=== PATIENT | female | born 1960 | race Caucasian/White ===

== ENCOUNTER 2024-09-21 12:55 | Inpatient (IN) ==
--- NOTE | 2024-09-21 13:17 | Emergency Department Note ---
ED DC CONDITION Conditon at Discharge Condition at Discharge: Serious Impression & Plan Cerebral venous sinus thrombosis, acute, Lung mass, Double vision, Facial mass ED Provider Note NAME: NIXON CAMPBELL AGE: 63 SEX: F : 1960 ARRIVES VIA: Walk-In INFORMANT: Patient ED PROVIDER(S): Johan Serrano DO CHIEF COMPLAINT: Left eye ptosis and double vision HPI: Patient is a 63-year-old female with a past medical history of breast cancer, GERD who presents to the ER for double vision as well as a ptosis. Symptoms have been present for the past 2 weeks. They have been getting worse over this time but significantly worse over the past 4 days. Denies any headache. When she looks ahead she has no double vision but looking left or right double vision occurs. This has been more present over the past 4 days. If she closes 1 eye she has no issues. No eye pain. No trauma. No chest pain or shortness of breath. No nausea, vomiting or diarrhea. No dysuria, urgency or frequency. No other exacerbating or remitting factors. ADDITIONAL HISTORY OBTAINED: Per HPI Chronic Medical/Social Conditions Affecting Care: Per HPI PAST MEDICAL HISTORY:See Below PAST SURGICAL HISTORY:See Below FAMILY HISTORY:See Below SOCIAL HISTORY:See Below HOME MEDICATIONS:See Below ALLERGIES:See Below VITALS:See Below PHYSICAL EXAMINATION: GENERAL: Sitting up in bed, alert, well appearing, well nourished, no distress, non-toxic EYE EXAM: normal conjunctiva. PERRL and EOM's intact. With the exception of a droopy left upper eyelid. Slight disconjugate gaze and patient peers to be having difficulty looking completely left with the left eye. OROPHARYNX: mucous membranes are moist NECK: supple, no nuchal rigidity, no adenopathy, non-tender LUNGS: Clear to auscultation. Normal chest wall mechanics HEART: no murmurs, S1 normal and S2 normal ABDOMEN: abdomen soft, non-tender, normo-active bowel sounds, no masses, no rebound or guarding. BACK: Back is symmetrical on inspection and there is no deformity, no midline tenderness, no CVA tenderness. SKIN: no rashes and no bruising UPPER EXTREMITIES: upper extremities are grossly normal. LOWER EXTREMITIES: No pitting edema. NEURO EXAM: Normal sensorium, cranial nerves II-XII grossly intact, normal speech, no gross weakness of arms, no gross weakness of legs. MEDICAL DECISION MAKING: Patient is a 63-year-old female who presents to the ER with a past medical history of breast cancer for left eye issue referred in by ophthalmology. IV was established and blood work was obtained. Intraocular pressures were checked and they are 18 bilaterally. CBC along with BMP was unremarkable. LFTs and bilirubin was normal. CTA of the head and neck was obtained and showed likely cancerous mass eroding into the frontal bone sinuses and causing what appears to be a venous sinus thrombosis. I discussed with her she neurology and recommended urgent transfer. I spoke with hospitalist Dr. Rausch in combination with ophthalmology who both felt that the patient did not need to be transferred but they discussed the case with neurosurgery and heme-onc who agreed with them per their report and noted that the patient can follow-up as an outpatient. On last time I contacted [facility] I requested to see what neurosurgery's thoughts were in regards to the venous sinus thrombosis. They noted that we could speak with our neurologist. I requested to speak with their neurologist and they noted that he is no longer on-call. At this time I discussed case with Dr. Nash who recommended admission here and IV heparin without a bolus and close monitoring. I discussed the risk and benefits with this and the patient. They expressed understanding. Discussed with Dr. Flores for further evaluation management and treatment. Again patient denied any previous brain surgeries, coughing up blood, urinating blood, vomiting blood or recent trauma. Consults/Care Managements Discussions: Per [facility] Triage Nursing notes reviewed. Limited review of prior medical records performed Vital Signs: reviewed and remarkable for no significant abnormalities Differential diagnosis: Conjunctivitis, trauma, brain mass, stroke, corneal abrasion, hyphema, glaucoma, iritis, corneal ulcer, dendrite, CRAO, CRVO, vitreous detachment, retinal detachment, as well as other pathologies. ER treatment provided: See below Diagnostics interpreted by me include EKG and cardiac monitoring as listed below: -Cardiac Monitoring: An order was placed for continuous cardiac monitoring. The monitor shows a rate of 70 with sinus rhythm. -ECG: none -Laboratory studies:Interpreted by me as stated above in MDM and shown below. Imaging studies: Xrays: As interpreted by me:none CTs show: CT of the head per my preliminary interpretation showed no obvious large bleed CT of the head and neck as described above in MDM Procedures:none Critical Care: I have personally spent 75 minutes of critical care time in the direct management of this patient. This includes bedside care, interpretation of diagnostic studies, and testing, discussion with consultants, patient, and family members, and other required patient management activities. This 75 minutes is in excess of all separately billable procedures. Past Med/Surg History Problem List (Updated 09/21/24 @ 18:56 by Johan Serrano DO) Facial mass (Acute) Double vision (Acute) Lung mass (Acute) Cerebral venous sinus thrombosis, acute (Acute) Metastatic neoplasm Occlusion of sagittal venous sinus Proptosis Ptosis Nausea & vomiting Abdominal pain Routine health maintenance Osteopenia Acute URI of multiple sites GERD (gastroesophageal reflux disease) mild hiatal hernia Lymphedema Malignant neoplasm of lower-outer quadrant of left breast of female, estrogen receptor negative (Chronic) FNA L axillary lump 06/24/18 Onychomycosis Peripheral neuropathy Foot drop Medical History Status post chemotherapy Shingles BRCA gene mutation negative Central venous catheter in place Bone spur Abnormal mammogram Surgical History Hx of tonsillectomy History of bunionectomy H/O foot surgery Family History Mother No problems noted. Father , 83yo Colorectal cancer Brother No problems noted. Brother No problems noted. Denies family history of Ovarian cancer Prostate cancer Myocardial infarction Breast cancer Social History Smoking Status: Never smoker Tobacco Type: Cigarettes Age Started Using Tobacco: 17; Age Quit Using Tobacco: 27; packs per day: 0.5; Cigarettes Per Day: 1/2 PPD x 10 yrs;; Second Hand Exposure: No; Do You Dip or Chew Tobacco: No; Hx Alcohol Use: Yes Hx Substance Use: No Preferred Language: Dutch Communication Ability: Effective Visual Impairment: Limited Hearing Ability: Normal Software Product Specialist Required: No Beliefs That Will Affect Care: None marital status: Current Living Situation: Spouse current occupational status: retired and disabled 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 [employer] How many Children do You have: 0 Feels Safe at Home: Yes Childhood Exposure to Second-Hand Smoke: Yes Diet: regular caffeine: Yes (2 cups coffee/day) during the past year weight has: remained stable Dental Care, Regularly: Yes Physical Activity Frequency: Daily Physical Activity Frequency Comment: Daily housework and cleaning Seatbelt Use: always Sunscreen Use: Yes Gender Identity: Female Assistive Devices: Contacts and Glasses Allergies Allergies Allergy/AdvReac Type Severity Reaction Status Date / Time Penicillins Allergy Severe Rash Verified 09/12/24 10:40 erythromycin base Allergy Verified 09/12/24 10:40 Home Meds Previous Rx's Medication Instructions Recorded famotidine 20 mg tablet 20 mg PO DAILY #90 tabs 07/20/24 tobramycin 0.3 % eye drops 2 drp ophthalmic (eye) TID #5 mL 08/18/24 ondansetron 4 mg disintegrating 4 mg PO Q4H PRN nausea and 09/12/24 tablet vomiting #60 tabs Results & Data (ED) Vital Signs Vital Signs - 24 hr 09/21/24 12:58 09/21/24 13:11 09/21/24 13:17 Temperature 36.6 C Temperature Source Temporal Artery Scan Pulse Rate 91 H 81 Pulse Rate from SpO2 Sensor Respiratory Rate 18 Respiratory Effort / Characteristics Non-Labored Respiratory Depth Normal Respiratory Pattern Regular Blood Pressure 121/78 124/76 Blood Pressure Mean 92 94 Pulse Oximetry 97 Oxygen Delivery Method Room Air Sepsis Recent Fever Within 48 Hours No Sepsis New/Unexplained Change in Mental Status N/A Sepsis Action Taken by Nursing No Action Required 09/21/24 13:27 09/21/24 13:30 09/21/24 13:30 Temperature Temperature Source Pulse Rate 87 Pulse Rate from SpO2 Sensor 88 Respiratory Rate Respiratory Effort / Characteristics Respiratory Depth Respiratory Pattern Blood Pressure 121/78 121/78 Blood Pressure Mean 99 99 Pulse Oximetry 93 Oxygen Delivery Method Sepsis Recent Fever Within 48 Hours Sepsis New/Unexplained Change in Mental Status Sepsis Action Taken by Nursing 09/21/24 13:36 09/21/24 13:42 09/21/24 13:54 Temperature Temperature Source Pulse Rate 75 70 Pulse Rate from SpO2 Sensor 75 69 Respiratory Rate 22 23 Respiratory Effort / Characteristics Respiratory Depth Respiratory Pattern Blood Pressure Blood Pressure Mean Pulse Oximetry 95 98 96 Oxygen Delivery Method Room Air Sepsis Recent Fever Within 48 Hours Sepsis New/Unexplained Change in Mental Status Sepsis Action Taken by Nursing 09/21/24 14:00 09/21/24 14:12 09/21/24 14:27 Temperature Temperature Source Pulse Rate 70 78 Pulse Rate from SpO2 Sensor 69 77 Respiratory Rate 21 17 Respiratory Effort / Characteristics Respiratory Depth Respiratory Pattern Blood Pressure 119/71 Blood Pressure Mean 96 Pulse Oximetry 97 97 Oxygen Delivery Method Sepsis Recent Fever Within 48 Hours Sepsis New/Unexplained Change in Mental Status Sepsis Action Taken by Nursing 09/21/24 14:30 09/21/24 14:30 09/21/24 14:39 Temperature Temperature Source Pulse Rate 74 Pulse Rate from SpO2 Sensor 73 Respiratory Rate 18 Respiratory Effort / Characteristics Respiratory Depth Respiratory Pattern Blood Pressure 133/86 133/86 Blood Pressure Mean 108 108 Pulse Oximetry 97 Oxygen Delivery Method Sepsis Recent Fever Within 48 Hours Sepsis New/Unexplained Change in Mental Status Sepsis Action Taken by Nursing 09/21/24 14:48 09/21/24 15:03 09/21/24 15:27 Temperature Temperature Source Pulse Rate 83 75 74 Pulse Rate from SpO2 Sensor 85 77 74 Respiratory Rate 23 20 Respiratory Effort / Characteristics Respiratory Depth Respiratory Pattern Blood Pressure 140/86 133/91 Blood Pressure Mean 104 105 Pulse Oximetry 97 96 97 Oxygen Delivery Method Sepsis Recent Fever Within 48 Hours Sepsis New/Unexplained Change in Mental Status Sepsis Action Taken by Nursing 09/21/24 16:09 09/21/24 17:14 Temperature Temperature Source Pulse Rate 66 78 Pulse Rate from SpO2 Sensor 68 Respiratory Rate 15 Respiratory Effort / Characteristics Respiratory Depth Respiratory Pattern Blood Pressure 145/90 H Blood Pressure Mean 108 Pulse Oximetry 97 Oxygen Delivery Method Sepsis Recent Fever Within 48 Hours Sepsis New/Unexplained Change in Mental Status Sepsis Action Taken by Nursing Laboratory Data 09/21/24 Unknown 09/21/24 Unknown Lab Results 09/21/24 09/21/24 Range/Units 13:14 Unknown WBC 7.60 (4.8-10.8) K/ul RBC 4.49 (4.20-5.40) M/uL Hgb 12.9 (12.0-16.0) g/dl POC Hgb 12.9 (12.0-16.0) g/dl Hct 39.0 (37.0-47.0) % POC Hct 38 (37-47) % MCV 86.9 (80.0-100.0) fL MCH 28.7 (25.0-34.0) pg MCHC 33.1 (32.0-36.0) g/dL RDW Std Deviation 45.5 (36.4-46.3) fL RDW Coeff of Melissa 14.3 (11.5-14.5) % Plt Count 281 (130-400) K/uL MPV 10.4 (9.4-12.4) fL Immature Gran % (Auto) 0.4 % Neut % (Auto) 78.0 % Lymph % (Auto) 15.5 % Wheeler % (Auto) 5.3 % Eos % (Auto) 0.3 % Baso % (Auto) 0.5 % Neut # (Auto) 5.93 (1.40-6.50) K/uL Lymph # (Auto) 1.18 L (1.20-3.40) K/uL Wheeler # (Auto) 0.40 (0.11-0.59) K/uL Eos # (Auto) 0.02 (0.00-0.50) K/uL Baso # (Auto) 0.04 (0.00-0.20) K/uL Immature Gran # (Auto) 0.03 (0.01-0.20) K/uL POC Sodium 140 (135-144) mmol/L Sodium 140 (136-145) mmol/L POC Potassium 3.4 (3.3-5.0) mmol/L Potassium 3.5 (3.5-5.1) mmol/L POC Chloride 98 L (101-112) mmol/L Chloride 103 (98-107) mmol/L Carbon Dioxide 32 (21-32) mmol/L POC Total CO2 27 (24-31) mmol/L Anion Gap 5 (3-11) POC Anion Gap 20.0 (16-25) mmol/L POC BUN 9 (7-18) mg/dl BUN 10 (6-23) mg/dl Creatinine 0.87 (0.6-1.2) mg/dl POC Creatinine 1.0 (0.6-1.3) mg/dl Est Cr Clr Drug Dosing 61.2 ml/min eGFR 74.35 BUN/Creatinine Ratio 11.5 (10-20) Glucose 110 H (70-99(Fasting)) mg/dl POC Glucose (other) 111 H (70-99) mg/dl Calcium 9.3 (8.6-10.3) mg/dl POC Ioniz Calcium Juan Antonio 1.22 (1.12-1.32) mmol/l Total Bilirubin 0.5 (0.2-1.0) mg/dl AST 22 (13-39) U/L ALT 13 (7-52) U/L Alkaline Phosphatase 224 H (34-104) U/L Total Protein 6.6 (6.0-8.3) gm/dl Albumin 3.8 (3.4-5.0) gm/dl Globulin 2.8 (2.5-4.0) gm/dl Albumin/Globulin Ratio 1.4 (0.9-2) Administered Medications Heparin Sodium/Dextrose (Heparin 72133 Unit/500 Ml D5w) 25,000 units in 500 mls @ 23 mls/hr IV .[id number] [facility]; Protocol Stop: 10/21/24 17:44 Last Admin: 09/21/24 18:32 Dose: 1,150 units/hr, 23 mls/hr Documented By: MENDEZ Co-signed By: DAVIS Discontinued Medications Dexamethasone Sodium Phosphate (DexamethasonePf 10 Mg/Ml Vial) 10 mg IV NOW ONE Stop: 09/21/24 15:12 Last Admin: 09/21/24 15:59 Dose: 10 mg Documented By: GUY Ioversol (Optiray 320 125ml) 119 ml IV ONCE ONE Stop: 09/21/24 13:24 Last Admin: 09/21/24 13:24 Dose: 119 ml Documented By: ALEAH Imaging Data Radiologist's Impression: Head CTA 09/21/24 13:10 CT angio head wo/w CLINICAL HISTORY: Left eye double vision and ptosis. COMPARISON STUDY: No previous studies for comparison. TECHNIQUE: Unenhanced and arterial phase imaging of the head was performed. Intravenous injection of 119 cc of Optiray 320 IV was uneventful. Sagittal and coronal reformats were viewed as well as maximal intensity projections on an independent 3-D workstation. A dose lowering technique was utilized adhering to the principles of ALARA. FINDINGS: The bilateral M1, M2, A1 and A2 segments are patent. There is no intracranial aneurysm, dissection or stenosis. The posterior circulation is intact. No arterial occlusion is identified. No acute intracranial hemorrhage is present. There is no midline shift. Ventricular system is unremarkable. Basal cisterns are patent. The frontal and ethmoid sinuses are opacified. There is associated bony irregularity with permeative appearance of the left frontal bone and the greater wing of the of the left temporal bone. Associated adjacent dural enhancing soft tissue extends into the left orbital apex. There is abrupt cutoff of the anterior aspect of the superior sagittal sinus which contains hyperdense material. 6 mm partially calcified extra-axial density overlying the left parietal lobe on image 61 of 128 is noted. There is a 4 mm calcific density within the paramedian posterior right frontal lobe on image 75. IMPRESSION: 1. No intracranial arterial occlusion. No intracranial aneurysm or stenosis. 2. Bony irregularity with permeative appearance of the left frontal bone and greater wing of the left sphenoid bone. Associated enhancing dural tissue consistent with tumor which extends into the left orbital apex and overlies the anterior left temporal and frontal lobes. Opacified frontal and sphenoid sinuses which may contain tumor. Occlusion of the anterior superior sagittal sinus. These findings suggest metastatic disease and could be further assessed with MRI of the brain with and without contrast. ACT 112: Negative or not required by law. Electronically signed by: Jason Arboleda M.D. 09/21/2024 1:52 PM Neck CTA 09/21/24 13:10 CT ANGIOGRAPHY OF THE NECK WITH CONTRAST CLINICAL HISTORY: Double vision and ptosis. COMPARISON STUDY: No previous studies for comparison. Technique: CT angiography of the carotid and vertebral arteries was obtained using Optiray and 3D reconstruction on an independent workstation. NASCET criteria was utilized. Automated exposure control was utilized for the study. A dose lowering technique was utilized adhering to the principles of ALARA. Findings: Numerous irregular mass-like lesions within the left upper lobe are partially imaged. Index lesion on image 1 measures at least 5 x 3 cm. There are numerous nodules within visualized portions of the upper lungs. Mediastinal, left hilar and right supraclavicular lymphadenopathy is noted. Index right paratracheal lymph node on image 88 measures 2.3 x 1.1 cm. The bilateral common carotid, cervical internal carotid and vertebral arteries are patent. There is no stenosis, aneurysm or dissection within these vessels. IMPRESSION: 1. No stenosis or dissection within the bilateral common carotid, cervical internal carotid or vertebral arteries. 2. Multiple masses and nodules within the visualized lungs, including a 5 x 3 cm left upper lobe mass. These are consistent with a neoplastic process and worrisome for lung malignancy. A CT of the chest is recommended for further evaluation. 3. Pathologic mediastinal, left hilar and right supraclavicular lymphadenopathy. ACT 112: Negative or not required by law. Electronically signed by: Jason Arboleda M.D. 09/21/2024 1:41 PM Discharge Plan Visit Data Chief Complaint: Referred by Doctor Stated Complaint: REFFERED BY DOCTOR ED Provider: Johan Serrano Discharge Problem: Cerebral venous sinus thrombosis, acute, Lung mass, Double vision, Facial mass Patient Disposition: Admitted As Inpatient Condition: Serious Forms Stand Alone Forms: [facility] Prescriptions Prescriptions: No Action famotidine 20 mg tablet 20 mg PO DAILY Qty: 90 3RF tobramycin 0.3 % drops 2 drp ophthalmic (eye) TID Qty: 5 0RF Rx Instructions: Use until symptoms resolve and then for another 2 days after ondansetron 4 mg tablet,disintegrating 4 mg PO Q4H PRN (Reason: nausea and vomiting) Qty: 60 0RF Rx Instructions: [facility] ER 08/23/24 Referrals Referrals: Ann Mayes MD [Primary Care Provider] -
[2024-09-21] MEDS: OPTIRAY 320 125ml IV ONE (13:24)
[2024-09-21 13:28] LABS: iSTAT Hemoglobin 12.9 g/dl (12.0-16.0); iSTAT Ionized Calcium 1.22 mmol/l (1.12-1.32); iSTAT Potassium 3.4 mmol/L (3.3-5.0)
[2024-09-21 13:29] LABS: Basophils # (auto) 0.04 K/uL (0.00-0.20); Basophils % (auto) 0.5 %; Eosinophils # (auto) 0.02 K/uL (0.00-0.50); Eosinophils % (auto) 0.3 %; Hemoglobin 12.9 g/dl (12.0-16.0); Immature Granulocytes # (auto) 0.03 K/uL (0.01-0.20); Immature Granulocytes % (auto) 0.4 %; Lymphocytes # (auto) 1.18 K/uL (1.20-3.40); Lymphocytes % (auto) 15.5 %; Mean Corpuscular Hemoglobin 28.7 pg (25.0-34.0); Mean Corpuscular Hgb Conc 33.1 g/dL (32.0-36.0); Mean Corpuscular Volume 86.9 fL (80.0-100.0); Mean Platelet Volume 10.4 fL (9.4-12.4); Monocytes % (auto) 5.3 %; Neutrophils # (auto) 5.93 K/uL (1.40-6.50); Platelet Count 281 K/uL (130-400); RDW Coefficient of Variation 14.3 % (11.5-14.5); RDW Standard Deviation 45.5 fL (36.4-46.3); Red Blood Count 4.49 M/uL (4.20-5.40)
--- NOTE | 2024-09-21 13:42 | CT Scan Report ---
CT ANGIOGRAPHY OF THE NECK WITH CONTRAST CLINICAL HISTORY: Double vision and ptosis. COMPARISON STUDY: No previous studies for comparison. Technique: CT angiography of the carotid and vertebral arteries was obtained using Optiray and 3D rec onstruction on an independent workstation. NASCET criteria was utilized. Automated exposure control was utilized for the study. A dose lowering technique was utilized adhering to the principles of ALA RA. Findings: Numerous irregular mass-like lesions within the left upper lobe are partially imaged. Index lesion on image 1 measures at least 5 x 3 cm. There are numerous nodules within visualized portions of the upper lungs. Mediastinal, left hilar and right supraclavicular lymphadenopathy is noted. Index right paratracheal lymph node on image 88 measures 2.3 x 1.1 cm. The bilateral common carotid, cervi shantelle internal carotid and vertebral arteries are patent. There is no stenosis, aneurysm or dissection within these vessels. IMPRESSION: 1. No stenosis or dissection within the bilateral common carotid, cervical internal carotid or verteb ral arteries. 2. Multiple masses and nodules within the visualized lungs, including a 5 x 3 cm left upper lobe mass . These are consistent with a neoplastic process and worrisome for lung malignancy. A CT of the chest is recommended for further evaluation. 3. Pathologic mediastinal, left hilar and right supraclavicular lymphadenopathy. ACT 112: Negative or not required by law. Electronically signed by: Jason Arboleda M.D. 09/21/2024 1:41 PM
[2024-09-21 13:49] LABS: Albumin Globulin Ratio 1.4 (0.9-2); Albumin Level 3.8 gm/dl (3.4-5.0); BUN Creatinine Ratio 11.5 (10-20); Bilirubin,Total 0.5 mg/dl (0.2-1.0); Calcium 9.3 mg/dl (8.6-10.3); Creatinine Clr Calc Pharmacy 61.2 ml/min; Globulin 2.8 gm/dl (2.5-4.0); Potassium 3.5 mmol/L (3.5-5.1); Total Protein 6.6 gm/dl (6.0-8.3)
--- NOTE | 2024-09-21 13:54 | CT Scan Report ---
CT angio head wo/w CLINICAL HISTORY: Left eye double vision and ptosis. COMPARISON STUDY: No previous studies for comparison. TECHNIQUE: Unenhanced and arterial phase imaging of the head was performed. Intravenous injection of 119 cc of Optiray 320 IV was uneventful. Sagittal and coronal reformats were viewed as well as neri l intensity projections on an independent 3-D workstation. A dose lowering technique was utilized adh ering to the principles of ALARA. FINDINGS: The bilateral M1, M2, A1 and A2 segments are patent. There is no intracranial aneurysm, dis section or stenosis. The posterior circulation is intact. No arterial occlusion is identified. No acu te intracranial hemorrhage is present. There is no midline shift. Ventricular system is unremarkable. Basal cisterns are patent. The frontal and ethmoid sinuses are opacified. There is associated bony i rregularity with permeative appearance of the left frontal bone and the greater wing of the of the le ft temporal bone. Associated adjacent dural enhancing soft tissue extends into the left orbital apex. There is abrupt cutoff of the anterior aspect of the superior sagittal sinus which contains hyperden se material. 6 mm partially calcified extra-axial density overlying the left parietal lobe on image 6 1 of 128 is noted. There is a 4 mm calcific density within the paramedian posterior right frontal lob e on image 75. IMPRESSION: 1. No intracranial arterial occlusion. No intracranial aneurysm or stenosis. 2. Bony irregularity with permeative appearance of the left frontal bone and greater wing of the left sphenoid bone. Associated enhancing dural tissue consistent with tumor which extends into the left o rbital apex and overlies the anterior left temporal and frontal lobes. Opacified frontal and sphenoid sinuses which may contain tumor. Occlusion of the anterior superior sagittal sinus. These findings s uggest metastatic disease and could be further assessed with MRI of the brain with and without contra st. ACT 112: Negative or not required by law. Electronically signed by: Jason Arboleda M.D. 09/21/2024 1:52 PM
[2024-09-21] MEDS: dexAMETHasone**PF** 10 MG/ML VIAL IV ONE (15:59)
--- OUTSIDE RECORDS SUMMARY | 2024-09-21 17:14 | External Medical Summary | Summary of Care ---
Author Name Unknown Organization [facility] Address [address] [place] [address] Phone [phone] Care Team Providers Care Economic Consultant Name Role Phone PrasanthroldanLawrence miller Celio DO Primary Care Provi cortney Reason for Visit * Reason Comments Follow Up Encounter Details Date Type Department Care Team (Late st Contact Info) Description 09/20/2024 2:00 PM EDT Office Visit General Surgery Shahnaz Childs [address] [place] [id number] Denver Julian MD [address] [place] [address] Lung nodule, multiple* Allergies Active Allergy Reactions Criticality Noted Date Comments Erythromycin 09/09/2018 Penicillins 12/25/2004 Rash documented as of this encounter (statuses as of 09/20/2024) Medications Doxepin HCl 50 MG Oral Capsule Take 50 mg by mouth at bedtime. Active celecoxib (CELEBREX) 200 MG Capsule Take 200 mg by mouth 2 times a day. Active Famotidine 20 MG Oral Tablet (Pepcid) Take 1 Tablet by mouth in the morning. 2 Active Ondansetron 4 MG Oral Tablet Disintegrating (Zofran) Place 1 Tablet on tongue every 8 hours as needed for Nausea or Vomiting. dissolve on tongue. 12 Tablet 5 Active documented as of this encounter (statuses as of 09/20/2024) Active Problems Problem Noted Date Diagnosed Date History of breast cancer 03/24/2019 Malignant neoplasm of upper- outer quadrant of left breast in female, estrogen receptor negative 07/19/2018 Metastatic cancer to axillary lymph nodes 2018 documented as of this encounter (statuses as of 09/20/2024) Resolved Problems Problem Noted Date Diagnosed Date Resolved Date ADVANCE DIRECTIVE INFORMATION 02/19/2005 03/27/2024 Overview (02/19/2005): No, Advance Directive brochure offered , patient declined. documented as of this encounter (statuses as of 09/20/2024) Social History Tobacco Use Types Packs/Day Years Used Date Smoking Tobacco: Former Smokeless Tobacco: Never Comments:Smoked for 10 years Alcohol Use Standard Drinks/Week Comments Yes 0 (1 standard drink = 0.6 oz pur e alcohol) Rarely Comments No Sex and Gender Information Value Date Recorded Sex Assigned at Not on file Legal Sex Female 5:42 AM EST Gender Identity Not on file Sexual Orientation Not on file documented as of this encounter Progress Notes * Denver Julian MD - 09/20/2024 2:23 PM EDT SUBJECTIVE: Ann Zhang is a 63 year old female. Chief Complaint Patient presents with Follow Up HPI: Ann Zhang is being seen for discussion of the results of her CAT scan and HIDA scan. I 1st saw her on 08/29/24 and the HPI from that visit stated th e following: "HPI: Ann is referred by Lawrence Winchester DO and Makayla Shi PA-C for evaluation of upper abdominal pain. The patient states her 1st episode was 5 weeks ago. She describes discomfort that is crampy with some sharp component that usually begins just to the right of midline in the subcostal area and then will spread towards the right and then towards the left side. It will last for varying amounts of time. She states that it has been occurring 1 day per week since it 1st occurred 5 weeks ago. She has not been able to clearly identify an etiology. She states that occasionally when she would eat more fatty foods the next day she might have symptoms but that was not consistent. She said that on the day that she 1st had the symptoms she was lifting a box above her head andevelop some discomfort but there is no other trauma that she described. She had some nausea with the pain but no vomiting. The pain did not radiate to her back. She had no fever. She presently reports being constipated but she thinks this may be due to the fact that her oral intake has decreased in it she has fear of eating in hoping that the pain will not return. She was seen in the Emergency Room for the most recent episode of pain which was 5 days ago. She underwent an ultrasound of the right upper quadrant. The gallbladder showed no gallstones. There was no gallbladder wall thickening. The common bile duct measured 5 mm. There was no choledocholithiasis. In the liver there was a 1.6 cmsimple cyst in the right lobe and a 6 mm cyst in the left lobe but no solid mass or fatty infiltration was seen. Her AST and ALT were mildly elevated at 55 and 65 respectively. Her alkaline phosphatase was mildly elevated at 215. Her total bilirubin was 0.5." Since that time the pain has seemed to resolve. She was placed on Zofran on regular basis and that has helped her nausea as well. She has been able to eat. She has developed an issue with ptosis of her left eye which is being investigated. The CT scan showed new sclerotic lesions in the L3 and L4 ve rtebral bodies. There were also multiple nodules in the middle lobe and bilateral lower lobes of the lung with the largest in the subpleural right lower lobe area measuring 9 mm. The liver had stablesimple cysts and additional subcentimeter hypodensities which were too small to accurately characterize. The gallbladder ejection fraction was 28%. She developed no symptoms after administration of the cholecystokinin analog. 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 Past Surgical History: Procedure Laterality Date BX LYMPH NODE DEEP AXIL Left 01/25/2019 BIOPSY LYMPH NODE DEEP AXILLARY OPEN performed by Luly Fowler MD at [facility] CHEMOTHERAPY T2N1 with neoadjuvant chemotherapy IDENTIFY SENTINEL NODE, RADIOACTIVE TRACER Left 01/25/2019 INJECTION PROCEDURE FOR IDENTIFICATION SENTINEL NODE performed by Luly Fowler MD at OR [facility] INSER TUNN ACC DEV;5 YRS/OLDER N/A 08/03/2018 INSERT TUNNELED CENTRAL VENOUS ACCESS WITH SUBQ PORT performed by Luly Fowler MD at [facility] MASTECTOMY, PARTIAL Left 01/25/2019 MASTECTOMY PARTIAL performed by Luly oFwler MD at [facility] MRI GUIDED BREAST BX LEFT Left 07/20/2018 fibrocystic change & intraductal hyperplasia OTHER 1994 Right foot; bone spur/bunion RADIATION THERAPY Left 2019 US GUIDED BREAST BIOPSY LEFT Left 06/24/2018 high grade invasive apocrine type Pathologic Stage 2 Carcinoma US GUIDED BREAST BIOPSY RIGHT Right 07/20/2018 change consistent with ruptured duct & adjacent fat necrosis Current Outpatient Medications Medication Sig Dispense Refill Doxepin HCl 50 MG Oral Capsule Take 50 mg by mouth at bedtime. celecoxib (CELEBREX) 200 MG Capsule Take 200 mg by mouth 2 times a day. Famotidine 20 MG Oral Tablet (Pepcid) Take 1 Tablet by mouth in the morning. Ondansetron 4 MG Oral Tablet Disintegrating (Zofran) Place 1 Tablet on tongue every 8 hours as needed for Nausea or Vomiting. dissolve on tongue. 12 Tablet 0 No current facility-administered medications for this visit. Review of patient's allergies indicates: Allergen Reactions Erythromycin Penicillin [Penicillins] Rash Social History: Social History Tobacco Use Smoking status: Former Smokeless tobacco: Never Tobacco comments: Smoked for 10 years Substance Use Topics Alcohol use: Yes Comment: Rarely Vaping/E-Cigarette Use Vaping/E-Cigarette Substances Vaping/E-Cigarette Devices OBJECTIVE: PHYSICAL EXAM: [facility] 02/11/2005 General: alert and no distress Abdomen: abdomen soft, non-tender, normal bowel sounds, and no masses or organomegaly ASSESSMENT: (R91.8) Lung nodule, multiple (primary encounter diagnosis) PLAN: This patient had abdominal pain which is now resolved. There are lung lesions and possibly liver lesions but also lytic lesions in her spine that are consistent and suspicious for metastatic disease.I had previously contacted Dr. Monzon who ordered a PET scan. That is scheduled for later in September. She then has an appointment scheduled with Dr. Monzon. I do not feel that cholecystectomy is indicated at this time. If her symptoms return then we can re-evaluate. She is also being evaluated with an MRI for her eye. Await those results. She can follow up with me as needed. Denver Julian MD 09/20/2024 documented in this encounter Nursing Notes * Thelma Hess LPN - 09/20/2024 1:46 PM EDT Pt presents in office for 1 week follow up of upper abdominal pain Ct completed on 09/05 No concerns documented in this encounter Plan of Treatment Upcoming Encounters Date Type Department Care Team (Late st Contact Info) Description 10/09/2024 10:45 AM EDT Imaging Radiology [address] [place] [phone] 10/17/2024 2:30 PM EDT Office Visit Hematology/Oncology [facility] [address] [facility] [place] [id number] Bridger Monzon MD [address] [facility] [place] [address] Health Maintenance Due Date Last Done Comments COVID-19 Vaccine (#1) 12/06/1964 Depression Screening 1971 HIV Screening 12/06/1974 Pneumococcal Vaccine: 50+ Years (1 of 2 - PCV) 12/06/1978 Zoster Vaccines (1 of 2) 12/06/1978 Pap Smear 12/06/1980 Cervical Cancer Screening 12/06/1989 HPV/Co-Test 12/06/1989 Cologuard 12/06/2004 Colonoscopy 12/06/2004 Colorectal Cancer Screening 12/06/2004 Fecal Occult Blood Test 12/06/2004 Sigmoidoscopy 12/06/2004 Mammogram 06/26/2023 06/26/2022, 05/2021, 06/20/2020, Additional history exists Influenza Vaccine (FLU shot) (Season Ended) 2025 Lipid Panel 07/19/2025 07/19/2020, 08/0 05/2007, 12/23/2007 Diabetes Screening 08/24/2027 08/23/2024, 0 07/19/2020, 12/30/2018, Additional history exists DTap/Tdap Vaccines (2 - Td or Tdap) 06/21/2028 06/21/2018 Hepatitis C Screening Completed 08/23/2024 HPV (Gardasil) Vaccine Aged Out No lo nger eligible based on patient's age to complete this topic Hepatitis B Vaccine Aged Out No longe r eligible based on patient's age to complete this topic MENINGOCOCCAL (MENACTRA/MENVEO) Aged Out No longer eligible based on patient's age to complete this topic Meningitis B Vaccine (Bexsero/Trumemba) Aged Out No longer eligible based on patient's age to complete this topic documented as of this encounter Medical Devices Implanted Type Area Billet Checker Device Identifier Shelf Expiration Date Model / Serial / Lot Port Power Mri W/8fr Cath - [id number] Implanted:Qty: 1 on 08/03/2018 by Luly Fowler MD at OR [facility] Right: Chest CR BARD : PERIPHERAL VASCULAR 06/23/2019 [id number] / / [id number] documented as of this encounter Visit Diagnoses Diagnosis Lung nodule, multiple- Primary Other nonspecific abnormal finding of lung field documented in this encounter Care Teams Economic Consultant Relationship Specialty Start Date End Date Lawrence Winchester DO [address] [place], [place] [address] [id number] PCP - General Family Medicine 07/17/20 documented as of this encounter
[2024-09-21] MEDS: HEPARIN 25000 UNIT/500 ML D5W 25,000 UNITS/500 ML BAG IV SCH (18:32)
--- NOTE | 2024-09-21 18:43 | History & Physical Report ---
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 presents with worrisome changes of a widely metastatic neoplasm eroding into her left frontal bone from the retro- orbital space. Accompanying symptoms are diplopia nausea and vomiting. He also feels some gait instability. #Possible sagittal sinus occlusion/thrombosis patient was cautiously started on heparin therapy with concern for bleeding. Patient has been many clinical symptoms of a sinus thrombosis and thus concerned this could be occluded with tumor #Metastatic neoplasm. This is on the left side where her breast cancer was diagnosed and treated. Will perform an MRI of her brain to determine the extent of invasion into her brain. Will have CT scan of her chest to determine the extent of disease burden in her chest. May consider intra ventral radiology consultation to determine if tissue can be obtained easily in this case. Heparin is chosen to be continued at this time but will be stopped if biopsy would be needed. Once diagnostic testing is performed the hospital patient will need to be connected to outpatient oncological services. History of Present Illness Primary Care Provider: Ann Mayes MD 63-year-old female with a history of breast cancer diagnosed in 2019 who has a 5-week history of intermittent vomiting and some progressive left facial discomfort. This is evolved until some diplopia and some mild proptosis and facial swelling. The patient recently has had seen general surgery for her nausea and vomiting with a CT scan done at the [facility] through Dr. Julian. Reportedly on that CT scan she was told she may have metastatic disease in her lumbar spine and also noticing disease in her lungs. Attempts to coordinate outpatient care was made with the possibility of outpatient PET scan being scheduled. However the patient presented with progressive diplopia and facial changes and is found on imaging to have worrisome changes with a retro- orbital mass extending into her frontal lobe opacification of the frontal and sphenoid sinuses and also concerns for occlusion of the anterior superior sagittal sinus which we cannot tell if it is tumor or clot. The patient has chronic daily headaches but they have not worsened. Allergies Allergy/AdvReac Type Severity Reaction Status Date / Time Penicillins Allergy Severe Rash Verified 09/12/24 10:40 erythromycin base Allergy Verified 09/12/24 10:40 Home Medications Medication Instructions Recorded Confirmed Type famotidine 20 mg tablet 20 mg PO DAILY #90 tabs 07/20/24 09/12/24 Rx tobramycin 0.3 % eye drops 2 drp ophthalmic (eye) TID #5 mL 08/18/24 09/12/24 Rx ondansetron 4 mg disintegrating 4 mg PO Q4H PRN nausea and 09/12/24 09/12/24 Rx tablet vomiting #60 tabs Past Med/Surg History Problem List (Updated 09/21/24 @ 18:36 by Teddy Flores MD) Metastatic neoplasm Occlusion of sagittal venous sinus Proptosis Ptosis Nausea & vomiting Abdominal pain Routine health maintenance Osteopenia Acute URI of multiple sites GERD (gastroesophageal reflux disease) mild hiatal hernia Lymphedema Malignant neoplasm of lower-outer quadrant of left breast of female, estrogen receptor negative (Chronic) FNA L axillary lump 06/24/18 Onychomycosis Peripheral neuropathy Foot drop Medical History Status post chemotherapy Shingles BRCA gene mutation negative Central venous catheter in place Bone spur Abnormal mammogram Surgical History Hx of tonsillectomy History of bunionectomy H/O foot surgery Family History Mother No problems noted. Father , 83yo Colorectal cancer Brother No problems noted. Brother No problems noted. Denies family history of Ovarian cancer Prostate cancer Myocardial infarction Breast cancer Social History Smoking Status: Never smoker Tobacco Type: Cigarettes Age Started Using Tobacco: 17; Age Quit Using Tobacco: 27; packs per day: 0.5; Cigarettes Per Day: 1/2 PPD x 10 yrs;; Second Hand Exposure: No; Do You Dip or Chew Tobacco: No; Hx Alcohol Use: Yes Hx Substance Use: No Preferred Language: [place] Communication Ability: Effective Visual Impairment: Limited Hearing Ability: Normal Flight Director Required: No Beliefs That Will Affect Care: None marital status: Current Living Situation: Spouse current occupational status: retired and disabled 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 [employer] How many Children do You have: 0 Feels Safe at Home: Yes Childhood Exposure to Second-Hand Smoke: Yes Diet: regular caffeine: Yes (2 cups coffee/day) during the past year weight has: remained stable Dental Care, Regularly: Yes Physical Activity Frequency: Daily Physical Activity Frequency Comment: Daily housework and cleaning Seatbelt Use: always Sunscreen Use: Yes Gender Identity: Female Assistive Devices: Contacts and Glasses Review of Systems Review of Systems: Mild distress and fatigue Chronic daily headache preceded her most recent symptom complex, double vision with resolved with closure of 1 eye no speech or swallowing issues no chest pain, pressure or palpitations no shortness of breath, cough or wheezes no abdominal pain, has had persistent intermittent nausea & vomiting, most recently has significant constipation no dysuria, hematuria or frequency no focal joint pain or swelling no back pain, CVA tenderness or radicular pain no bruising, bleeding or rashes no focal signs of weakness or numbness or altered sensation no complaints of anxiety or depression.. Physical Exam Physical Exam: The patient appeared well nourished and normally developed. Vital signs as documented. Head exam is puffiness to her left face with a tendency to close her left eye no bony fluctuance or tenderness Neck is without JVD, thyromegaly, or carotid bruits. No significant chest wall masses Lungs apical rales are heard mostly on the right side Cardiac exam, Rhythm is regular.. No murmurs, rubs or gallops. Abdominal exam reveals normal bowel sounds, soft non tender, no masses Extremities are nonedematous and both pedal pulses are present Neurologic exam is alert and oriented, no focal loss of strength or sensation Skin is without bruises or rashes Psychologically is without concerns for anxiety or depression.. Results & Data Results & Data Vital Signs (Past 12 Hours) Vital Signs Temp Pulse Resp BP Pulse Ox O2 Del Method 09/21/24 17:14 78 09/21/24 16:09 66 15 145/90 H 97 09/21/24 15:27 74 20 133/91 97 09/21/24 15:03 75 23 140/86 96 09/21/24 14:48 83 97 09/21/24 14:39 74 18 97 09/21/24 14:30 133/86 09/21/24 14:30 133/86 09/21/24 14:27 78 17 97 09/21/24 14:12 70 21 97 09/21/24 14:00 119/71 09/21/24 13:54 70 23 96 09/21/24 13:42 75 22 98 09/21/24 13:36 95 Room Air 09/21/24 13:30 121/78 09/21/24 13:30 121/78 09/21/24 13:27 87 93 09/21/24 13:17 81 09/21/24 13:11 124/76 09/21/24 12:58 97.9 F 91 H 18 121/78 97 Room Air Laboratory Results Reviewed CBC reviewed chemistry Code Status & VTE Plan VTE Prophylaxis Plan VTE Prophylaxis will be ordered: Yes PG Care Time/CCT Total # of Minutes Spent Total Time Spent with Patient: Total time spent is greater than 50% in coordination of care (as documented) at patient's floor/unit and/or counseling patient: Coding Level of Care Code 46710 INT INP/OBS CARE 2/55MIN Diagnoses Occlusion of sagittal venous sinus G08 Metastatic neoplasm C79.9
[2024-09-21 19:16] LABS: Partial Thromboplastin Ratio 0.9; Partial Thromboplastin Time 24 Seconds (21-31); Prothrombin Time 10.9 Seconds (9.0-12.0)
[2024-09-21] MEDS ORDERED: ACETAMINOPHEN 325 MG TAB PO PRN (20:34)
[2024-09-21] MEDS ORDERED: LORazepam 0.5 MG TAB PO PRN (20:34)
[2024-09-21] MEDS ORDERED: POLYETHYLENE (MIRALAX) 17 GM PACK PO PRN (20:34)
[2024-09-21] MEDS: ONDANSETRON INJ 2 MG/ML 2 ML VIAL IV PRN (21:01)
[2024-09-21] MEDS: OPTIRAY 320 100ml IV ONE (21:34)
[2024-09-21] MEDS: GADOBUTROL 65ML VIAL IV ONE (22:14)
[2024-09-22] MEDS: Heparin IV Adult Wt-Based Standard *NO* INITIAL Bolus Protocol IV STA (01:08)
[2024-09-22 01:29] LABS: ANTI-Xa, UFH(UnfractionatedHep 0.63 IU/ml (0.3-0.7)
--- NOTE | 2024-09-22 02:19 | CT Scan Report ---
Exam(s): CT CHEST With Contrast IV Amt: 93 cc opti 320 EXAM: CT Chest With Intravenous Contrast CLINICAL HISTORY: tumors noted on cta neck. TECHNIQUE: Axial computed tomography images of the chest with intravenous contrast. CTDI is 14.32 mGy and DLP is 498.12 mGy-cm. Automated exposure control was utilized for the study. A dose lowering technique was utilized adhering to the principles of ALARA. CONTRAST: Patient received 93 cc opti 320 of IV contrast COMPARISON: CTA Neck 09/21/2024, chest x-ray 10/11/2018. FINDINGS: Lungs: Multifocal noncalcified lung masses, most confluent in the left upper lobe measuring 3.5 x 2.3 cm. Additional prominent right upper lobe 3.2 x 3.2 cm masses. Multiple scattered subcentimeter masses throughout the lung cruz. Pleural space: No pneumothorax. No pleural effusion. Heart: Unremarkable. No cardiomegaly. Trace pericardial fluid versus thickening. No significant coronary artery calcifications. Bones/joints: Degenerative changes of the spine. No acute fracture. Incompletely healed fracture in the posterior lateral left seventh rib with periosteal reaction. Soft tissues: Unremarkable. Vasculature: Unremarkable. No thoracic aortic aneurysm. Lymph nodes: Diffuse mediastinal and bilateral hilar lymphadenopathy, largest lymph node is an enhancing 2.3 x 1.4 cm subcarinal lymph node. Enhancing 10 x 9 mm and 12.4 x 9.3 mm left axillary lymph nodes. Abdomen: 6 mm hypodense lesion right lobe of liver too small to characterize. Probable 10 mm cyst in the right lobe of liver. Additional 1-2 mm hypodense lesion in the left lobe of liver too small to characterize. IMPRESSION: Extensive bilateral noncalcified lung masses with associated mediastinal and hilar lymphadenopathy and left axillary lymphadenopathy. Appearance is most consistent with neoplasm/metastatic disease. Subacute or old or incompletely healed left posterior lateral seventh rib fracture. Electronically signed by: Celio Braun M.D. 09/22/24 02:18 AM
--- NOTE | 2024-09-22 02:54 | Magnetic Resonance Report ---
Exam(s): MRI HEAD W/WO Contrast IV Amt: 7cc gadavist administered EXAM: MR Head Without and With Intravenous Contrast CLINICAL HISTORY: Reason for exam: eval left retroorbital mass with ext to brain. TECHNIQUE: Magnetic resonance images of the head/brain without and with intravenous contrast in multiple planes. CONTRAST: Patient received 7cc gadavist administered of IV contrast COMPARISON: No relevant prior studies available. FINDINGS: Brain: Brightly enhancing tumor in the epidural space overlying the frontal lobes, left greater than right with thickening and increased enhancement of the leptomeninges over the left hemisphere. There are tiny ring-enhancing lesions in the left frontal lobe, bilateral occipital lobes bilateral cerebellar lobes and left temporal lobe without significant vasogenic edema . The flow voids at the base the brain are intact. The dural venous sinuses are patent. Ventricles: Unremarkable. No ventriculomegaly. Bones/joints: Intraosseous tumor in the frontal lobes.. No acute fracture. Sinuses: Enhancing soft tissue mass in the ethmoid and frontal sinuses. Mastoid air cells: Unremarkable as visualized. No mastoid effusion. Orbits: There is enhancing tumor in the posterior left orbit. 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 There is enhancing tumor in the posterior left orbit. Recommend MRI of the orbits with and without contrast for further evaluation. Communications: Verify Receipt Electronically signed by: Ching Montero MD 09/22/24 02:53 AM
--- NOTE | 2024-09-22 07:52 | Hospitalist Progress Note ---
Date of Service September 22, 2024 Assessment & Plan (1) Metastasis to brain: (2) Metastatic neoplasm: (3) Cerebral venous sinus thrombosis, acute: Plan Miss Levy is 63-year-old female h/o breast cancer in 2019, underwent chemotherapy plus radiation to the left breast and supraclavicular area of the axilla, was on complete remission until a month ago when she started developing new sx. Worsening of Eye symptoms for 1 weeks now, she also endorses loss of balance. Not sure about primary lesion. Metastatic work up revealed mets on BL lungs, supraclavicular LNs, liver, orbit, sinuses. #Metastatic neoplasm: *Unknown primary. - Metastatic work up CT of the abdomen and pelvis suggests pulmonary, hepatic, and osseous metastatic disease. MRI Brain and Orbit: metastatic disease in the left temporal bone and left frontal bone, with extension into the left orbital apex. CT of the chest demonstrates metastatic disease/lymphadenopathy. - CBC, CMP: Unremarkable. - CEA: 6.8, ALP: 244. - Radiation Onc on board: appreciate recs. Will start radiation from next week. Dexamethasone 4 mg PO BID. - Pulm/ IR consulted: Team discussion and image review; looks like she has a supraclavicular LN as peripheral lesion. Trial of biopsy on Wednesday. #Possible sagittal sinus occlusion/thrombosis *2/2 to tumor burden. - Heparin drip ongoing. Continue. - Recheck Xa Q 24 hours. - DC 4 hours before procedure on Wednesday. Dispo: Home once work up complete. DVT prophy: Heparin Admission and Anticipated Discharge Date Admission Date: September 21, 2024 Supervising Physician Co-Signing Physician Notes ATTESTATION I also saw the patient and confirmed mobley portions of the history and exam. I also personally discussed the case with the consulting paediatric surgeon and the outpatient medical oncologist, via phone calls, totaling an additional 15 minutes. I agree with the impression and plan in the resident documentation, and as summarized below. She surprisingly feels generally well except for the swelling around the left eye. She is an excellent historian and is able to fill in several of the missing pieces of information. EXAM VS as noted She is alert and oriented. NAD. CV RRR Lungs CTA with non labored respirations. ABD is soft, non tender. DATA Labs CBC and BMP unremarkable CEA 6.8 AST 22, ALT 13 Alk Phos [address] of the abdomen and pelvis suggests pulmonary, hepatic, and osseous metastatic disease. MRI Bran and Orbit demonstrate metastatic disease in the left temporal bone and left frontal bone, with extension into the left orbital apex. CT of the chest demonstrates metastatic disease/lymphadenopathy. IMPRESSION & PLAN History of Breast CA, triple negative, now with metastatic findings of brain, bone, and lung; suspect breast but cannot exclude second primary Cerebral venous thrombosis, acute Appreciate input from consultants Continue heparin gtt; will hold prior to biopsy Radiation oncology simulation today; Namenda with start of RT Palliative consultation for anticipation of side effect management and goals of care Additional per resident documentation Subjective Miss Levy is 63-year-old female h/o breast cancer in 2019, underwent chemotherapy plus radiation to the left breast and supraclavicular area of the axilla, was on complete remission until a month ago when she started developing new sx.Worsening of Eye symptoms for 1 weeks now, she also endorses loss of balance. Review of Systems Review of Systems: As per HPI Physical Exam Physical Exam: Constitutional: Well appearing, No acute distress. HEENT: Proptosis of left eye, Ptosis noted, Normocephalic, No conjunctival injection CVS: S1 S2 no murmur, Regular Rhythm, no LE edema Respiratory: BL decreased air entry.No increased work of breathing GI: Soft, Nondistended, Nontender, Normal Bowel sounds + MSK: No gross deformities noted Skin: Warm, Dry, No rashes Neuro: Alert, Oriented to TPP, No Focal deficit Psych: Mood and Affect congruent, Cooperative on exam Results & Data Results & Data Vital Signs (Past 12 Hours) Vital Signs Temp Pulse Pulse Resp BP BP Pulse Ox 09/21/24 23:33 36.7 C 84 16 157/89 H 95 09/21/24 20:16 09/21/24 20:09 75 21 132/85 94 O2 Del Method 09/21/24 23:33 Room Air 09/21/24 20:16 Room Air 09/21/24 20:09
[2024-09-22 08:01] LABS: Hematocrit (blood only) 36.3 % (37.0-47.0); Hemoglobin 12.1 g/dl (12.0-16.0); Mean Corpuscular Hemoglobin 28.3 pg (25.0-34.0); Mean Corpuscular Hgb Conc 33.3 g/dL (32.0-36.0); Mean Platelet Volume 10.6 fL (9.4-12.4); Platelet Count 280 K/uL (130-400); RDW Coefficient of Variation 14.2 % (11.5-14.5); RDW Standard Deviation 43.9 fL (36.4-46.3); Red Blood Count 4.27 M/uL (4.20-5.40); White Blood Count 8.26 K/ul (4.8-10.8)
[2024-09-22 08:25] LABS: BUN Creatinine Ratio 14.9 (10-20); Calcium 9.2 mg/dl (8.6-10.3); Creatinine Clr Calc Pharmacy 71.9 ml/min; Potassium 3.6 mmol/L (3.5-5.1)
[2024-09-22 08:35] LABS: ANTI-Xa, UFH(UnfractionatedHep 0.77 IU/ml (0.3-0.7)
--- NOTE | 2024-09-22 10:13 | Pulmonary Consultation ---
Date of Consultation September 22, 2024 Assessment & Plan (1) Metastasis to brain: (2) Lung mass: (3) Ptosis: (4) LAD (lymphadenopathy), mediastinal: (5) Malignant neoplasm of lower-outer quadrant of left breast of female, estrogen receptor negative: (6) Cerebral venous sinus thrombosis, acute: Plan 63-year-old female admitted to the hospital for pulmonary mass with mediastinal lymphadenopathy Past medical history: Left-sided breast cancer 2018 s/p lumpectomy, chemo and radiation CT chest 09/21/2024 personally reviewed: Multiple pulmonary masses appreciated bilaterally especially in the left upper and the right middle lobe Significant mediastinal and hilar lymphadenopathy with calcification -- Pulmonary masses with pulmonary nodules bilaterally Significant mediastinal and hilar lymphadenopathy Seems to have metastasis to the brain as well. The possibility of patient having malignancy is high Given the history of breast cancer, relapse of the breast cancer higher probability The patient does have approximately 3-71-hcnf-year smoking history quit a long time ago. Does have secondhand smoke exposure as well as history of pulmonary mass in father. Probability of lung cancer is there. --Ex-smoker Approximately 54-[id number] smoking history, quit around the age of 29 --History of lung mass and father was a smoker Plan: By the time I was consulted unfortunately it was already 1030 and she was still on heparin drip and I saw the patient. She also had her breakfast I discussed the case with the OR as well as RT. The latest that I could do the procedure would be 2:30 PM which would be 4 hours since holding the heparin drip. Unfortunately we do not have RT availability during that time and I will not be able to do EBUS today I discussed the case with interventional radiology as well. There is 1 right supraclavicular lymph node right behind the IJ as well as left axillary lymph node which can be biopsied unfortunately they cannot do it today. I discussed the case with patient and primary team. Option for the patient would be discharged home on anticoagulation and schedule the procedure as an outpatient. It would be complicated because prior to biopsy anticoagulation needs to be stopped for at least 2-3 days. If the patient plans to stay here in the hospital then IR guided biopsy on Wednesday and if we are not able to get the tissue with the EBUS could be thought of. Do recommend CT of the abdomen and pelvis to see if there is any other easily accessible metastasis. I discussed the case with primary team, radiation oncology, IR. All questions and queries of the patient were answered in depth Please note the above document was generated using voice recognition software. It may contain grammatical, syntax or spelling errors.Any formal questions or concerns about the content, text or information contained within the body of this dictation should be directly addressed to the provider for clarification. History of Present Illness Attending Physician: Ahsan Owens DO History of Present Illness 63-year-old female admitted to the hospital for pulmonary mass with mediastinal lymphadenopathy Past medical history: Left-sided breast cancer 2018 s/p lumpectomy, chemo and radiation Pulmonary consulted for the same At the time of examination patient was not in any respiratory distress She was saturating well on room air. She was complaining of blurry vision in the left eye for which she followed up with ophthalmology as an outpatient. They recommended to go to the ER to have an MRI of the brain done. MRI of the brain showed metastatic lesions. This was followed up with CAT scan of the chest and pulmonary were consulted for the same She denies any issues when it comes to her breathing. She has lost approximately 14 pounds in the last couple of months. Denies any difficulty swallowing Social history: Approximately 71-silf-rovh smoking history, with long time ago, did have exposure to secondhand smoke. Usually used to have discharge Has dogs at home. No birds or poultry nearby History of lung mass in father who was a smoker Allergies Allergy/AdvReac Type Severity Reaction Status Date / Time Penicillins Allergy Severe Rash Verified 09/21/24 18:53 erythromycin base Allergy Verified 09/21/24 18:53 Home Medications Medication Instructions Recorded Confirmed Type famotidine 20 mg tablet 20 mg PO DAILY #90 tabs 07/20/24 09/21/24 Rx ondansetron 4 mg disintegrating 4 mg PO Q4H PRN nausea and 09/12/24 09/21/24 Rx tablet vomiting #60 tabs Patient History Medical History Status post chemotherapy Neoadjuvant chemo 08/12/18 thru 12/30/18 Shingles BRCA gene mutation negative Central venous catheter in place 08/03/18 Bone spur right foot. removed Abnormal mammogram Surgical History Hx of tonsillectomy History of bunionectomy H/O foot surgery right foot Family History Mother No problems noted. Father , 83yo Colorectal cancer Brother No problems noted. Brother No problems noted. Denies family history of Ovarian cancer Prostate cancer Myocardial infarction Breast cancer Social History Smoking Status: Former smoker Tobacco Type: Cigarettes Age Started Using Tobacco: 17; Age Quit Using Tobacco: 27; packs per day: 0.5; Cigarettes Per Day: 1/2 PPD x 10 yrs;; Second Hand Exposure: No; Do You Dip or Chew Tobacco: No; Hx Alcohol Use: Yes Hx Substance Use: No Preferred Language: Yakut Communication Ability: Effective Visual Impairment: Limited Hearing Ability: Normal Telecommunications Facility Examiner Required: No Beliefs That Will Affect Care: None marital status: Current Living Situation: Spouse current occupational status: retired and disabled 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 [employer] How many Children do You have: 0 Feels Safe at Home: Yes Childhood Exposure to Second-Hand Smoke: Yes Diet: regular caffeine: Yes (2 cups coffee/day) during the past year weight has: remained stable Dental Care, Regularly: Yes Physical Activity Frequency: Daily Physical Activity Frequency Comment: Daily housework and cleaning Seatbelt Use: always Sunscreen Use: Yes Gender Identity: Female Assistive Devices: Cane and Walker Review of Systems 2 Review of Systems: All systems reviewed & are unremarkable except as noted in HPI & below Physical Exam 2 Physical Exam: Constitutional: No acute distress HEENT: EOMI, PERRLA, ptosis of the left eye, does complain of blurry vision on the left eye Respiratory system: Good air entry bilaterally, no wheeze, no rhonchi, no crackles CVS: S1-S2 positive, no murmurs or gallops Abdomen: Soft, nontender, nondistended, positive bowel sounds x4 Extremities: +2 pulses bilaterally radialis/ dorsalis pedis, no cyanosis, minimal pitting edema bilateral lower extremity Neuro: Awake alert oriented x3, cranial nerves II to XII grossly intact, muscular strength 5/5 bilateral upper and lower extremity Psych: Normal mood and affect G/U: No Sood Skin: no rashes, warm and dry Lymphatic: no cervical or axillary lymphadenopathy Results & Data Results & Data Vital Signs (Past 12 Hours) Vital Signs Temp Pulse Resp BP Pulse Ox O2 Del Method 09/22/24 08:00 36.7 C 72 16 120/81 96 Room Air 09/21/24 23:33 36.7 C 84 16 157/89 H 95 Room Air Laboratory Results 09/22/24 07:22 09/22/24 07:22 PG Care Time/CCT Total # of Minutes Spent Total Time Spent with Patient: Total time spent is greater than 50% in coordination of care (as documented) at patient's floor/unit and/or counseling patient: Coding Level of Care Code 48063 INT INP/OBS CARE 375MIN Diagnoses Metastasis to brain C79.31 Lung mass R91.8 Ptosis H02.409 LAD (lymphadenopathy), mediastinal R59.0 Malignant neoplasm of lower-outer quadrant of left breast of female, estrogen receptor negative C50.512; Z17.1 Cerebral venous sinus thrombosis, acute G08
[2024-09-22] MEDS: FAMOTIDINE 20 MG TAB PO SCH (10:33)
--- NOTE | 2024-09-22 10:49 | Anesthesiology Consultation ---
Date of Service September 22, 2024 Assessment & Plan Chart Review Chart Review: Acceptable Risk for Surgery and Patient NOT seen in Pre Admission Testing History Surgery Operation Date: 09/22/24 13:30 Proposed Procedures p Endobronchial Ultrasound - Nelida Man MD, [facility] Height/Weight Height: 5 ft 6 in Weight: 69.3 kg Allergies Allergy/AdvReac Type Severity Reaction Status Date / Time Penicillins Allergy Severe Rash Verified 09/21/24 18:53 erythromycin base Allergy Verified 09/21/24 18:53 Medications Home Medications Medication Instructions Recorded Confirmed Last Taken famotidine 20 mg tablet 20 mg PO DAILY #90 tabs 07/20/24 09/21/24 Unknown ondansetron 4 mg disintegrating 4 mg PO Q4H PRN nausea and 09/12/24 09/21/24 09/21/24 tablet vomiting #60 tabs Active Medications Generic Name Dose Route Start Last Admin Trade Name Freq PRN Reason Stop Dose Admin Famotidine 20 mg 09/22/24 09:00 09/22/24 10:33 Famotidine 20 Mg Tab PO 10/22/24 08:59 20 mg DAILY GABRIELA Administration Heparin Sodium/Dextrose 25,000 units in 500 mls @ 23 mls/hr 09/21/24 17:45 09/22/24 10:36 Heparin 85989 Unit/500 Ml D5w IV 10/21/24 17:44 0 units/hr .[id number] GABRIELA 0 mls/hr Titration Protocol 1,150 UNITS/HR Ondansetron HCl 4 mg 09/21/24 20:34 09/22/24 08:02 Ondansetron Inj 2 Mg/Ml 2 Ml Vial IV 10/21/24 20:33 4 mg Q6H PRN Administration Nausea Past Medical History Medical History Status post chemotherapy Neoadjuvant chemo 08/12/18 thru 12/30/18 Shingles BRCA gene mutation negative Central venous catheter in place 08/03/18 Bone spur right foot. removed Abnormal mammogram Past Family History Family History Mother No problems noted. Father , 83yo Colorectal cancer Brother No problems noted. Brother No problems noted. Denies family history of Ovarian cancer Prostate cancer Myocardial infarction Breast cancer Past Surgical History Surgical History Hx of tonsillectomy History of bunionectomy H/O foot surgery right foot Social History Smoking Status: Former smoker tobacco type: cigarettes Smoking cigarettes per day: 1/2 PPD x 10 yrs; Do You Dip or Chew Tobacco: No Hx Alcohol Use: Yes alcohol intake frequency: a few times a week Hx Substance Use: No substance use type: does not use Physical Exam Vital Signs Last Vital Signs Temp 36.7 C 09/22/24 08:00 Pulse 72 09/22/24 08:00 Resp 16 09/22/24 08:00 BP 120/81 09/22/24 08:00 Pulse Ox 96 09/22/24 08:00 O2 Del Method Room Air 09/22/24 08:00 Testing Laboratory Results 09/22/24 07:22 09/22/24 07:22 PT 10.9 Seconds (9.0-12.0) 09/21/24 Unknown INR 1.0 (0.9-1.1) 09/21/24 Unknown APTT 24 Seconds (21-31) 09/21/24 Unknown
--- NOTE | 2024-09-22 11:07 | Radiation OncologyConsultation ---
Date of Consultation September 22, 2024 Assessment & Plan (1) Malignant neoplasm of lower-outer quadrant of left breast of female, estrogen receptor negative: (2) Metastasis to brain: Plan Assessment: Ms. Zhang is a 63-year-old female who presents with a history of locally advanced triple negative left breast cancer treated with surgery, chemotherapy and radiation therapy (2019). The patient has done well since completion of therapy and has underwent surveillance. More recently, the patient presented with left ocular symptoms and headaches in the outpatient setting. Primary care sent the patient to the emergency room and the patient underwent imaging studies which does reveal metastatic disease in the brain as well as involvement of the left skull and orbit. The patient did have a CT of chest which does show pulmonary metastatic disease. The patient has been evaluated by Dr. Man who has recommended bronchoscopy with biopsy to determine tissue diagnosis. I am now seeing the patient in consultation to discuss the role of radiation therapy. Recommendation: Whole brain radiation therapy as well as radiation therapy to left skull. 10 fractions. Plan: 1. CT simulation for treatment planning for radiation therapy today. Will plan to start radiation therapy next week. Patient does not need to be admitted for radiation therapy following completion of CT simulation. 2. Namenda protocol for whole brain radiation therapy. 3. Recommend consideration of dexamethasone 4 mg PO BID to help with symptoms. 4. Bronchoscopy with biopsy will be scheduled for tissue diagnosis. May be completed in the hospital or in the outpatient setting. 5. Outpatient medical oncology referral back to Dr. Bridger Monzon who previously took care of the patient. 6. Palliative care evaluation in the inpatient or outpatient setting would be appropriate as well. 7. Patient and authorized individuals are encouraged to call us with any further questions or concerns. Rationale/Explanation of Treatment: I explained the indications, alternatives, benefits, risks and side effects of external beam radiation therapy. I explain the most common side effects including but not limited to skin erythema, skin break down, hair loss, radiation necrosis, fatigue, short-term memory loss, decreased neurocognitive performance, cerebral edema, hearing loss, damage to cochlea structures, seizures, damage to vision, loss of sensory and or motor function. I explained the treatment planning process and what to expect before during and after treatment. I have explained to the patient that there is an increased risk of overlap from the previous course of radiation therapy and the current course of radiation therapy which can increase the risk of all acute and late side effects of radiation therapy. History of Present Illness Attending Physician: hAsan Owens DO History of Present Illness 06/16/2018. Patient undergoes bilateral screening mammogram tomosynthesis with CAD. This identified a new mass with associated calcifications in the left upper outer quadrant. The mass measured at least 1.8 x 1.9 cm. This was compared to her prior mammogram of 12/02/2015. Recommended spot compression tomosynthesis views, spot magnification views and targeted breast ultrasound for further evaluation. In addition there was a possible lobulated circumscribed 1.3 cm mass within the right medial breast middle depth on the cc view. Additional imaging for this finding was also recommended. 06/22/2018. Patient undergoes bilateral digital diagnostic mammogram tomosynthesis and bilateral breast ultrasound. The previously described asymmetry in the right medial breast was less prominent on additional spot compression views without a discrete mammographic mass. Spot magnification views of the left breast redemonstrated a new mass with non-circumscribed margin s measuring 1.6 x 1.9 x 1.7 mm. Pleomorphic calcifications are seen with in and anterior to the mass. The total extent of the mass and calcifications measured approximately 2.1 x 2.1 x 2.8 cm. 06/24/2018. Patient undergoes ultrasound-guided biopsy of the left breast for a mass with associated calcifications at the 2 o'clock position. This revealed an infiltrating adenocarcinoma, grade 3 with features of invasive apocrine carcinoma seen. The combined score is 8/9 (grade 3). Lymphatic space invasion was not seen. 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 The infiltrating carcinoma is estrogen receptor negative, weakly and focally progesterone receptor positive and indeterminant for overexpression of HER-2/aimee protein on immunohistochemical stains. Case #: [id number]. 06/24/2018. FNA of the left axillary mass was performed. This was positive for adenocarcinoma. Case #: [id number]. 07/13/2018. Patient undergoes bilateral breast MRIs with contrast. In the left breast a dominant irregular enhancing mass with associated biopsy marker was noted in the upper outer posterior 2:00 left breast. This measures 2.4 x 1.8 x 2.1 cm and corresponds with the recently biopsy-proven carcinoma. There was faint linear non-mass enhancement anterior to this mass extending towards the nipple by 1.8 cm of concern for DCIS. The mass also abuts the pectoralis muscle with fingerlike projections extending posteriorly towards the pectoralis muscle without definite evidence of pectoralis muscle enhancement or invasion. There was an additional linear and clumped non-mass enhancement in the lower outer quadrant of the left breast at the 4:00 anterior depth measuring 0.9 x 2.6 x 1.3 cm of concern for DCIS. There is left axillary and subpectoral lymphadenopathy. There are at least 6 enlarged left axillary lymph nodes 2 of which are moderately enlarged and 1 of those containing an internal biopsy clip denoting the area of biopsy-proven metastatic disease. The largest lymph node measures 1.8 cm. The left subpectoral lymph node measures 0.3 cm. In the right breast a focal area of the mass and non-mass enhancement in the retroareolar middle one third central at 6:00 revealed a small area of enhancement measuring 5.9 mm and consistent with a benign cyst. Targeted second look ultrasound with possible ultrasound-guided core biopsy was recommended. 07/19/2018. Patient seen in consultation by Dr. Bridger Monzon (medical oncology). He noted that the patient had undergone genetic testing and was BRCA1 and BRCA2 negative. He recommended consideration of neoadjuvant systemic chemotherapy for what was considered a triple negative carcinoma. 07/20/2018. Patient undergoes biopsy of the left "non-mass enhancement left lower outer quadrant on MRI". This revealed fibrocystic and intraductal hyperplasia but no tumor seen. Biopsy of the right breast "right subareolar breast mass" ultrasound-guided confirmed fat necrosis with no tumor seen. Case #: [id number]. 07/30/2018. Patient undergoes staging CT scan of the chest abdomen and pelvis. This confirmed a 1.7 cm left axillary lymphadenopathy. There was no evidence of disseminated metastatic disease. 08/12/2018. Dr. Monzon started the patient on neoadjuvant dose dense Adriamycin and cyclophosphamide. 10/14/2018. Patient is started on weekly paclitaxel. She is completed 4 cycles of dose dense AC. 10/28/2018. Patient returns to see Dr. Monzon. She had completed 2 cycles of the Paciletaxel and presented for her third. The plan is a total of 12 cycles of weekly paclitaxel. She was tolerating her treatment fairly well. 12/02/2018. Patient returns to see Dr. Monzon. She presented for cycle 8 of weekly paclitaxel out of a planned 12. She continued to tolerate treatment well. 12/29/2018. Patient is seen by Dr. Fowler (general surgery). Her examination of the left breast revealed a decrease in the size of the previously identified 2.5 cm area of thickening/mass which measured 1 cm. She recommended restaging with bilateral breast MRIs after the completion of systemic chemotherapy and discussed the option of conservative therapy with partial mastectomy and axillary dissection/sentinel node. 01/17/2019. Patient undergoes bilateral breast MRIs with and without contrast. This showed a significant decrease in size of the known cancer in the upper outer quadrant of the left breast. It also showed a decrease in size of the left axillary lymph nodes which were biopsy-proven. The right breast was unremarkable 01/25/2019. Dr. Fowler performed a left breast partial mastectomy and left sentinel node excision. The partial mastectomy specimen revealed residual invasive carcinoma with apocrine features measuring at least 1.3 cm, grade 3. DCIS with apocrine features, grade 3, cribriform and solid patterns were noted. All margins were negative. A palpable left axillary lymph node was excised and revealed residual metastatic carcinoma measuring 7 mm with no extracapsular extension identified. There was lymphovascular invasion identified and biopsy clip noted. 6 additional left sentinel lymph nodes were excised 2 of which contained metastatic disease with no extracapsular extension and an additional 6 left sentinel lymph nodes were excised all 6 without evidence of metastatic disease. Therefore a total of 13 lymph nodes were excised 12 of them sentinel of which 3 were positive with macro metastasis. Final AJCC pathologic staging was ypT1c, ypN1a, ER negative, IL negative and HER-2/aimee negative. Accession #: [id number]. 03/31/2019. Patient unfortunately noted after stopping weekly paclitaxel that she developed increasing neuropathy symptoms in both lower extremities to the point where she was not able to walk well by herself. She started ambulating with the help of a wheelchair and was seen by neurology. An EMG nerve conduction study confirmed evidence of neuropathy. Spinal tap showed no abnormal findings. Blood examination for paraneoplastic antibody testing was negative. The patient was encouraged to start her adjuvant radiation but because of her weakness and difficulty in ambulating she opted to delay initiation until she was feeling better. 04/26/2019. Patient returns for follow-up to Dr. Monzon. She noted that with treatment her ambulation has improved though she continues with the use of a walker. She agreed to proceed with adjuvant radiation and Dr. Monzon arrange for us to see the patient in referral. 05/10/2019. Patient seen in radiation oncology for evaluation and discussion of the role of adjuvant radiation. 07/18/2019. Radiation therapy to the left breast and lymph nodes. 6440 cGy in 36 fractions. [facility]. 08/2024. More recently, the patient developed left eye symptoms including difficulty opening her left eye. She also developed left eye pain. 09/2024. Primary care office told the patient to go to the emergency room. 09/21/2024. Patient admitted to the hospital for workup and evaluation. 09/21/2024. CT chest. Extensive bilateral noncalcified lung masses with associated mediastinal and hilar lymphadenopathy and left axillary lymphadenopathy. Appearance is most consistent with neoplasm/metastatic disease. Subacute or old or incompletely healed left posterior lateral seventh rib fracture. 09/21/2024. CTA neck. 1. No stenosis or dissection within the bilateral common carotid, cervical internal carotid or vertebral arteries. 2. Multiple masses and nodules within the visualized lungs, including a 5 x 3 cm left upper lobe mass. These are consistent with a neoplastic process and worrisome for lung malignancy. A CT of the chest is recommended for further evaluation. 3. Pathologic mediastinal, left hilar and right supraclavicular lymphadenopathy. 09/21/2024. MRI brain. 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 There is enhancing tumor in the posterior left orbit. Recommend MRI of the orbits with and without contrast for further evaluation. 09/22/2024. Pulmonary consultation. Dr. Man recommended consideration of bronchoscopy with biopsy of pulmonary mass. Allergies Allergy/AdvReac Type Severity Reaction Status Date / Time Penicillins Allergy Severe Rash Verified 09/21/24 18:53 erythromycin base Allergy Verified 09/21/24 18:53 Home Medications Medication Instructions Recorded Confirmed Type famotidine 20 mg tablet 20 mg PO DAILY #90 tabs 07/20/24 09/21/24 Rx ondansetron 4 mg disintegrating 4 mg PO Q4H PRN nausea and 09/12/24 09/21/24 Rx tablet vomiting #60 tabs Patient History Medical History Status post chemotherapy Neoadjuvant chemo 08/12/18 thru 12/30/18 Shingles BRCA gene mutation negative Central venous catheter in place 08/03/18 Bone spur right foot. removed Abnormal mammogram Surgical History Hx of tonsillectomy History of bunionectomy H/O foot surgery right foot Family History Mother No problems noted. Father , 83yo Colorectal cancer Brother No problems noted. Brother No problems noted. 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 Machine Required: No Beliefs That Will Affect Care: None marital status: Current Living Situation: Spouse current occupational status: retired and disabled 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 [employer] How many Children do You have: 0 Feels Safe at Home: Yes Childhood Exposure to Second-Hand Smoke: Yes Diet: regular caffeine: Yes (2 cups coffee/day) during the past year weight has: remained stable Dental Care, Regularly: Yes Physical Activity Frequency: Daily Physical Activity Frequency Comment: Daily housework and cleaning Seatbelt Use: always Sunscreen Use: Yes Gender Identity: Female Assistive Devices: Cane and Walker Review of Systems Review of Systems: All systems reviewed & are unremarkable except as noted in HPI & below Physical Exam Constitutional: WD/WN, vitals as above Eyes: + eyelid abnormality (Difficulty opening left eyelid both upper and lower lids.) ENMT: external ear and nose normal, oropharynx normal Neurologic: patellar DTR's 2+ bilat, sensation intact Psychiatric: A+Ox3, euthymic affect Time Spent Attending I spent 20 minutes in preparation for this consultation including reviewing all the clinical records, reviewing laboratory studies, pathology reports and imaging results. I spent 30 minutes with direct face to face interaction with the patient and/or family including performing a physical exam and answering all questions. I spent 20 minutes documenting this patient's visit. PG Care Time/CCT Total # of Minutes Spent Total Time Spent with Patient: Total time spent is greater than 50% in coordination of care (as documented) at patient's floor/unit and/or counseling patient: Coding Level of Care Code 07408 IN/OBS CONSULT LVL 4,60M Diagnoses Malignant neoplasm of lower-outer quadrant of left breast of female, estrogen receptor negative C50.512; Z17.1 Metastasis to brain C79.31
[2024-09-22] MEDS: GADOBUTROL 65ML VIAL IV ONE (12:57)
[2024-09-22] MEDS: OPTIRAY 320 100ml IV ONE (13:17)
--- NOTE | 2024-09-22 13:37 | Magnetic Resonance Report ---
MRI OF THE ORBITS WITH AND WITHOUT CONTRAST CLINICAL HISTORY: Suspicious orbital mets. COMPARISON STUDY: Head CT, CTA of the head and MRI of the brain September 21, 2024. TECHNIQUE: Utilizing a 3 Kell magnet and dedicated coil, multiplanar, multi echo imaging of the orbi ts was performed pre and postcontrast administration. Intravenous injection of 7 cc of Gadavist was u neventful. FINDINGS: Numerous parenchymal enhancing lesions consistent with metastases are better depicted on MR I of September 21, 2024. Extensive irregular pachymeningeal dural thickening overlying the cerebral hemisphe res is most pronounced anteriorly and overlying the anterior left temporal and frontal lobes. This en hancing soft tissue measures 7 mm in thickness. There is associated sulcal effacement and mild compre ssion of the left lateral ventricle. No significant midline shift is present. There is associated mar row replacement within the bilateral frontal bones and the greater wing of the left sphenoid bone. En hancing soft tissue and fluid within the frontal and ethmoid sinuses is present. Enhancing soft tissu e consistent with tumor extends into the left orbital apex. There is asymmetric dilatation of the lef t superior ophthalmic vein. Enhancing soft tissue encases the left cavernous carotid. There is no john dence for hydrocephalus. Basal cisterns are patent. Suspected associated occlusion of the anterior as pect of the superior sagittal sinus. IMPRESSION: 1. Extensive irregular pachymeningeal dural enhancement, most pronounced overlying the anterior left temporal and frontal lobes consistent with metastatic disease. Associated involvement of the frontal bones and greater wing of the left sphenoid bone. Extension of tumor into the left orbital apex and e thmoid and frontal sinuses, as detailed above. 2. Multiple enhancing parenchymal lesions consistent with metastases, better depicted on MRI of the b rain of September 21, 2024. 3. No evidence for hydrocephalus. ACT 112: Negative or not required by law. Electronically signed by: Jason Arboleda M.D. 09/22/2024 1:35 PM
--- NOTE | 2024-09-22 15:15 | CT Scan Report ---
ABDOMEN AND PELVIS CT WITH IV AND ORAL CONTRAST CT DOSE: 723.39 mGy.cm HISTORY: Follow-up study in a patient with history of metastatic breast cancer. eval metastatic dise ase TECHNIQUE: Multiaxial CT images of the abdomen and pelvis were performed following the IV administrat ion of 93 cc of Optiray and oral contrast. A dose lowering technique was utilized adhering to the pr inciples of TIMOTHY. COMPARISON STUDY: 07/28/2018. FINDINGS: Tree-in-bud and solid pulmonary nodules of the lung bases are seen measuring up to 10 mm wi thin the right lower lobe. No pneumatosis or pneumoperitoneum. Unremarkable spleen, pancreas, gallbla dder and adrenal glands. Scattered hepatic cysts are redemonstrated. Additionally, there are a few sc attered ill-defined hypodense lesions of the liver including a 9 mm focus in the inferior right hepat ic lobe on image 114 and a 1.1 cm focus of the right hepatic lobe on image 45 and a 12 mm focus of th e left hepatic lobe on image 56. These foci were not clearly seen on the prior exam. Patent portal ve in. Unremarkable kidneys. No hydronephrosis. Unremarkable urinary bladder. Uterus is within normal limits . No abdominal aortic aneurysm. Tiny hiatal hernia. Moderate colonic fecal retention. Colonic diverti culosis without acute diverticulitis. Noninflamed appendix. Heterogeneous mixed lytic and sclerotic metastasis are noted within the L3 and L4 vertebral bodies wi th epidural extension of disease also noted posterior to the levels. There is at least moderate centr al canal stenosis at the L3 level. Neural foraminal narrowing is seen at L2-L3, L3-L4 and L4-L5, ashwin re on the left at L3-L4. Additional ill-defined metastatic lesion within the right iliac bone on imag e 228. No definite acute pathologic fracture. IMPRESSION: 1. No bowel obstruction or bowel wall thickening. 2. Bibasilar nodular foci of the lungs suggestive of pulmonary metastasis. 3. Small ill-defined liver lesions suggestive of hepatic metastatic disease. 4. Osseous metastasis with largest lesions noted within the lower lumbar spine and right iliac bone. There is epidural and paraspinal extension of disease causing associated central canal and neural for aminal stenosis of the lumbar spine as above. 5. Colonic diverticulosis without acute diverticulitis. ACT 112: Negative or not required by law. The above report was generated using voice recognition software. It may contain grammatical, syntax o r spelling errors. Electronically signed by: Cedric Farmer M.D. 09/22/2024 3:12 PM
[2024-09-22 20:57] LABS: ANTI-Xa, UFH(UnfractionatedHep 0.61 IU/ml (0.3-0.7)
[2024-09-22] MEDS: dexAMETHasone 4 MG TAB PO SCH (21:42)
[2024-09-23 06:19] LABS: Hematocrit (blood only) 36.6 % (37.0-47.0); Hemoglobin 12.1 g/dl (12.0-16.0); Mean Corpuscular Hemoglobin 28.3 pg (25.0-34.0); Mean Corpuscular Hgb Conc 33.1 g/dL (32.0-36.0); Mean Corpuscular Volume 85.7 fL (80.0-100.0); Mean Platelet Volume 10.4 fL (9.4-12.4); Platelet Count 285 K/uL (130-400); RDW Coefficient of Variation 14.6 % (11.5-14.5); RDW Standard Deviation 45.5 fL (36.4-46.3); Red Blood Count 4.27 M/uL (4.20-5.40); White Blood Count 8.79 K/ul (4.8-10.8)
[2024-09-23 06:43] LABS: BUN Creatinine Ratio 13.6 (10-20); Calcium 8.9 mg/dl (8.6-10.3); Creatinine Clr Calc Pharmacy 60.5 ml/min; Potassium 4.2 mmol/L (3.5-5.1)
[2024-09-23 06:46] LABS: ANTI-Xa, UFH(UnfractionatedHep 0.71 IU/ml (0.3-0.7); Basophils # (auto) 0.01 K/uL (0.00-0.20); Basophils % (auto) 0.1 %; Immature Granulocytes # (auto) 0.04 K/uL (0.01-0.20); Immature Granulocytes % (auto) 0.5 %; Lymphocytes # (auto) 0.72 K/uL (1.20-3.40); Lymphocytes % (auto) 8.2 %; Monocytes % (auto) 1.1 %; Neutrophils # (auto) 7.92 K/uL (1.40-6.50); Neutrophils % (auto) 90.1 %
--- NOTE | 2024-09-23 07:32 | Pulmonology Progress Note ---
Date of Service September 23, 2024 Assessment & Plan (1) Metastasis to brain: (2) Lung mass: (3) Ptosis: (4) LAD (lymphadenopathy), mediastinal: (5) Malignant neoplasm of lower-outer quadrant of left breast of female, estrogen receptor negative: (6) Cerebral venous sinus thrombosis, acute: Plan 63-year-old female admitted to the hospital for pulmonary mass with mediastinal lymphadenopathy Past medical history: Left-sided breast cancer 2018 s/p lumpectomy, chemo and radiation CT chest 09/21/2024 personally reviewed: Multiple pulmonary masses appreciated bilaterally especially in the left upper and the right middle lobe Significant mediastinal and hilar lymphadenopathy with calcification -- Pulmonary masses with pulmonary nodules bilaterally Significant mediastinal and hilar lymphadenopathy Seems to have metastasis to the brain, liver, iliac crest The possibility of patient having malignancy is high Given the history of breast cancer, relapse of the breast cancer higher probability The patient does have approximately 7-27-jbkf-year smoking history quit a long time ago. Does have secondhand smoke exposure as well as history of pulmonary mass in father. Probability of lung cancer is there. --Ex-smoker Approximately [id number] smoking history, quit around the age of 29 --History of lung mass and father was a smoker Plan: CT abdomen pelvis does show lesions in the liver as well as in the right iliac crest in the lumbar spine. Iliac crest could also be a source for biopsy with IR I have ordered biopsy of the right supraclavicular lymph node as well as axillary lymph node on Wednesday which would be 09/25/2024. If deemed easier to biopsy the iliac crest then I will defer it to IR Case discussed with RN and primary team I do not think patient will need EBUS in future but in dire consequences if they are not able to get the diagnosis from IR then please call pulmonary and will be more than happy to perform the procedure No further recommendation from pulmonary perspective, will sign off Please call directly with any questions Please note the above document was generated using voice recognition software. It may contain grammatical, syntax or spelling errors.Any formal questions or concerns about the content, text or information contained within the body of this dictation should be directly addressed to the provider for clarification. Admission and Anticipated Discharge Date Admission Date: September 21, 2024 Subjective Patient seen and examined at bedside. No acute distress, no adverse events overnight Denied any chest pain, no shortness of breath PET appetite, no difficulty swallowing No nausea vomiting She did have CT abdomen pelvis done yesterday. Does have chronic blurry vision Review of Systems 2 Review of Systems: All systems reviewed & are unremarkable except as noted in Subjective Physical Exam 2 Physical Exam: Constitutional: No acute distress HEENT: EOMI, PERRLA, ptosis of the left eye, does complain of blurry vision on the left eye Respiratory system: Good air entry bilaterally, no wheeze, no rhonchi, mild crackles bilateral lower lobe CVS: S1-S2 positive, no murmurs or gallops Abdomen: Soft, nontender, nondistended, positive bowel sounds x4 Extremities: +2 pulses bilaterally radialis/ dorsalis pedis, no cyanosis, minimal pitting edema bilateral lower extremity Neuro: Awake alert oriented x3, cranial nerves II to XII grossly intact, muscular strength 5/5 bilateral upper and lower extremity Psych: Normal mood and affect G/U: No Sood Skin: no rashes, warm and dry Lymphatic: no cervical or axillary lymphadenopathy Results & Data Results & Data Vital Signs (Past 12 Hours) Vital Signs Temp Pulse Resp BP Pulse Ox O2 Del Method 09/23/24 07:22 36.5 C 73 16 121/78 97 Room Air Laboratory Results 09/23/24 05:58 09/23/24 05:58 PG Care Time/CCT Total # of Minutes Spent Total Time Spent with Patient: Total time spent is greater than 50% in coordination of care (as documented) at patient's floor/unit and/or counseling patient: Coding Level of Care Code 31428 SUB INP/OBS CARE 2/35MIN Diagnoses Metastasis to brain C79.31 Lung mass R91.8 Ptosis H02.409 LAD (lymphadenopathy), mediastinal R59.0 Malignant neoplasm of lower-outer quadrant of left breast of female, estrogen receptor negative C50.512; Z17.1 Cerebral venous sinus thrombosis, acute G08
--- NOTE | 2024-09-23 10:03 | Hospitalist Progress Note ---
Date of Service September 23, 2024 Assessment & Plan (1) Metastasis to brain: (2) Metastatic neoplasm: (3) Cerebral venous sinus thrombosis, acute: Plan Miss Levy is 63-year-old female h/o breast cancer in 2019, underwent chemotherapy plus radiation to the left breast and supraclavicular area of the axilla, was on complete remission until a month ago when she started developing new sx. Worsening of Eye symptoms for 1 weeks now, she also endorses loss of balance. Not sure about primary lesion. Metastatic work up revealed mets on BL lungs, supraclavicular LNs, liver, orbit, sinuses. Given her multiple mets and likely poor prognosis, palliative involvement in her care is reasonable. #Metastatic neoplasm: *Unknown primary. H/O breast ca. - Metastatic work up CT of the abdomen and pelvis suggests pulmonary, hepatic, and osseous metastatic disease. MRI Brain and Orbit: metastatic disease in the left temporal bone and left frontal bone, with extension into the left orbital apex. CT of the chest demonstrates metastatic disease/lymphadenopathy. - CBC, CMP: Unremarkable. - CEA: 6.8, ALP: 244. - Radiation Onc on board: appreciate recs. Will start radiation from next week. Dexamethasone 4 mg PO BID. - Pulm/ IR consulted: Team discussion and image review; looks like she has a supraclavicular LN as peripheral lesion. Trial of biopsy on Wednesday. If not possible Pulmonology team will attempt Broncho guided biopsy. - Consult palliative #Possible sagittal sinus occlusion/thrombosis *2/2 to tumor burden. - Heparin drip ongoing. Continue. - Recheck Xa Q 24 hours. - DC 4 hours before procedure on Wednesday. Dispo: Home once work up complete. DVT prophy: Heparin Admission and Anticipated Discharge Date Admission Date: September 21, 2024 Supervising Physician Co-Signing Physician Notes ATTESTATION I also saw the patient and confirmed mobley portions of the history and exam. I agree with the impression and plan in the resident documentation, and as summarized below. She is without new complaints; working on her laptop. Left eyelid closed. EXAM 121/78, 73, 16 She is alert and oriented. NAD. CV RRR Lungs CTA with non labored respirations. DATA Labs CBC and BMP unremarkable Imaging CT of the abdomen and pelvis suggests pulmonary, hepatic, and osseous metastatic disease. MRI Bran and Orbit demonstrate metastatic disease in the left temporal bone and left frontal bone, with extension into the left orbital apex. CT of the chest demonstrates metastatic disease/lymphadenopathy IMPRESSION & PLAN History of Breast CA, triple negative, now with metastatic findings of brain, bone, and lung; suspect breast but cannot exclude second primary Cerebral venous thrombosis, acute Appreciate input from consultants Continue heparin gtt; will hold prior to biopsy tentatively scheduled 09/25 Radiation oncology simulation yesterday with planned start next week; Namenda with start of RT Palliative consultation for anticipation of side effect management and goals of care Additional per resident documentation Subjective Stable from yesterday. No ON issue, got deep sleep for 5-6 hours she says. No new weakness, though her left eye sx is progressed for difficulty seeing due to lid ptosis. Normal BM, no fever, SOB., chest pain. She was curious if radiation could schedule therapy for morning session rather than afternoon. Review of Systems Review of Systems: As per HPI Physical Exam Physical Exam: Constitutional: Ptosis and mild proptosis on left eye. Well appearing, No acute distress. HEENT: Proptosis of left eye, Ptosis noted, Normocephalic, No conjunctival injection CVS: S1 S2 no murmur, Regular Rhythm, no LE edema Respiratory: BL decreased air entry.No increased work of breathing GI: Soft, Nondistended, Nontender, Normal Bowel sounds + MSK: No gross deformities noted Skin: Warm, Dry, No rashes Neuro: Alert, Oriented to TPP, No Focal deficit Psych: Mood and Affect congruent, Cooperative on exam Results & Data Results & Data Vital Signs (Past 12 Hours) Vital Signs Temp Pulse Resp BP Pulse Ox O2 Del Method 09/23/24 07:22 36.5 C 73 16 121/78 97 Room Air Resident Activity Tracking Resident Involvement: Resident Care Provided Care Provided: Adult Hospital Medicine
[2024-09-23 14:06] LABS: ANTI-Xa, UFH(UnfractionatedHep 0.91 IU/ml (0.3-0.7)
[2024-09-24 07:11] LABS: Hemoglobin 12.2 g/dl (12.0-16.0); Mean Corpuscular Hemoglobin 28.6 pg (25.0-34.0); Mean Corpuscular Volume 86.7 fL (80.0-100.0); Mean Platelet Volume 10.6 fL (9.4-12.4); Platelet Count 297 K/uL (130-400); RDW Coefficient of Variation 14.5 % (11.5-14.5); RDW Standard Deviation 46.1 fL (36.4-46.3); Red Blood Count 4.27 M/uL (4.20-5.40)
--- NOTE | 2024-09-24 07:30 | Hospitalist Progress Note ---
Date of Service September 24, 2024 Assessment & Plan (1) Metastasis to brain: (2) Metastatic neoplasm: (3) Cerebral venous sinus thrombosis, acute: Plan Miss Levy is 63-year-old female h/o breast cancer in 2019, underwent chemotherapy plus radiation to the left breast and supraclavicular area of the axilla, was on complete remission until a month ago when she started developing new sx. Worsening of Eye symptoms for 1 weeks now, she also endorses loss of balance. Not sure about primary lesion, could be breast, could be other malignancy d/t radiation exposure. Metastatic work up revealed mets on BL lungs, supraclavicular LNs, liver, orbit, sinuses. Given her multiple mets and likely poor prognosis, palliative involvement in her care is reasonable. Peripheral approach Supraclavicular LNs biopsy is planned per IR tomorrow. If not possible, Pulmonary team is willing to perform Bronchoscopic guided. She is on IV heparin for Superior sagittal sinus obstruction, planned to stop at least 4 hours before the procedure tomorrow( will stop at 3 am). #Metastatic neoplasm: *Unknown primary. H/O breast ca. - Metastatic work up CT of the abdomen and pelvis suggests pulmonary, hepatic, and osseous metastatic disease. MRI Brain and Orbit: metastatic disease in the left temporal bone and left frontal bone, with extension into the left orbital apex. CT of the chest demonstrates metastatic disease/lymphadenopathy. - CBC, CMP: Unremarkable. - CEA: 6.8, ALP: 244. - Radiation Onc on board: appreciate recs. Will start radiation from next week. Dexamethasone 4 mg PO BID. - Pulm/ IR consulted: Team discussion and image review; looks like she has a supraclavicular LN as peripheral lesion. Trial of biopsy on Wednesday. If not possible Pulmonology team will attempt Broncho guided biopsy. - Consult palliative;expect to see on Wednesday. #Possible sagittal sinus occlusion/thrombosis *2/2 to tumor burden. - Heparin drip ongoing. Continue per protocol. - Recheck Xa Q 24 hours. - DC 4 hours before procedure on Wednesday. Dispo: Home once work up complete. Will continue outpatient palliative radiotherapy. Palliative discussion pending. DVT prophy: Heparin Admission and Anticipated Discharge Date Admission Date: September 21, 2024 Supervising Physician Co-Signing Physician Notes ATTESTATION I also saw the patient and confirmed mobley portions of the history and exam. I agree with the impression and plan in the resident documentation, and as summarized below. Friend at bedside. She has a list of questions we worked thru this morning. EXAM VS as noted. She is alert and oriented. NAD. CV RRR Lungs CTA with non labored respirations. DATA Labs WBC 11 - likely related to steroids Imaging CT of the abdomen and pelvis suggests pulmonary, hepatic, and osseous metastatic disease. MRI Bran and Orbit demonstrate metastatic disease in the left temporal bone and left frontal bone, with extension into the left orbital apex. CT of the chest demonstrates metastatic disease/lymphadenopathy IMPRESSION & PLAN History of Breast CA, triple negative, now with metastatic findings of brain, bone, and lung; suspect breast but cannot exclude second primary Cerebral venous thrombosis, acute Appreciate input from consultants Continue heparin gtt; will hold prior to biopsy scheduled 09/25 Radiation oncology simulation yesterday with planned start next week; Namenda with start of RT Palliative consultation for anticipation of side effect management and goals of care Post biopsy, could be discharged; decision point will be anticoagulation; discussed thrombosis and increased risk of bleeding and high risk of further thrombosis in malignancy. Additional per resident documentation Subjective Feels eye swelling has probably decreased little bit because of steroids. Endorses some post nasal drip and eye dryness. Otherwise no change from yesterday. Eating ok, Sleeping baseline, no pain, no new weakness. No bleeding, no new swelling. Review of Systems Review of Systems: As per HPI Physical Exam Physical Exam: Constitutional: Ptosis and mild proptosis on left eye. Well appearing, No acute distress. HEENT: Proptosis of left eye, Ptosis noted, Normocephalic, No conjunctival injection CVS: Looks well perfused. Respiratory: No increased work of breathing GI: Soft, Nondistended, Nontender, Normal Bowel sounds + MSK: No gross deformities noted Skin: Warm, Dry, No rashes Neuro: Alert, Oriented to TPP, No Focal deficit Psych: Mood and Affect congruent, Cooperative on exam Results & Data Results & Data Vital Signs (Past 12 Hours) Vital Signs Temp Pulse Resp BP Pulse Ox O2 Del Method 09/24/24 07:22 36.5 C 71 16 120/76 97 Room Air 09/23/24 21:02 36.7 C 72 18 113/76 96 Room Air Resident Activity Tracking Resident Involvement: Resident Care Provided Care Provided: Adult [facility]
[2024-09-24 07:31] LABS: ANTI-Xa, UFH(UnfractionatedHep 0.39 IU/ml (0.3-0.7)
[2024-09-24 07:41] LABS: BUN Creatinine Ratio 21.5 (10-20); Calcium 8.9 mg/dl (8.6-10.3); Creatinine Clr Calc Pharmacy 67.3 ml/min; Potassium 4.2 mmol/L (3.5-5.1)
[2024-09-24] MEDS: FLUTICASONE PROPIONATE NA SPR 16 GM BTL SCH (11:05)
[2024-09-25 05:47] LABS: Basophils # (auto) 0.01 K/uL (0.00-0.20); Basophils % (auto) 0.1 %; Hematocrit (blood only) 36.9 % (37.0-47.0); Hemoglobin 12.2 g/dl (12.0-16.0); Immature Granulocytes # (auto) 0.19 K/uL (0.01-0.20); Immature Granulocytes % (auto) 1.6 %; Lymphocytes # (auto) 0.87 K/uL (1.20-3.40); Lymphocytes % (auto) 7.2 %; Mean Corpuscular Hemoglobin 28.3 pg (25.0-34.0); Mean Corpuscular Hgb Conc 33.1 g/dL (32.0-36.0); Mean Corpuscular Volume 85.6 fL (80.0-100.0); Mean Platelet Volume 10.4 fL (9.4-12.4); Monocytes # (auto) 0.29 K/uL (0.11-0.59); Monocytes % (auto) 2.4 %; Neutrophils % (auto) 88.7 %; Platelet Count 281 K/uL (130-400); RDW Coefficient of Variation 14.6 % (11.5-14.5); RDW Standard Deviation 45.2 fL (36.4-46.3); Red Blood Count 4.31 M/uL (4.20-5.40); White Blood Count 12.16 K/ul (4.8-10.8)
[2024-09-25 06:01] LABS: BUN Creatinine Ratio 23.1 (10-20); Creatinine Clr Calc Pharmacy 58.5 ml/min; Potassium 4.3 mmol/L (3.5-5.1)
[2024-09-25 06:23] LABS: ANTI-Xa, UFH(UnfractionatedHep 0.17 IU/ml (0.3-0.7); Prothrombin Time 10.7 Seconds (9.0-12.0)
--- NOTE | 2024-09-25 08:00 | Hospitalist Progress Note ---
Date of Service September 25, 2024 Assessment & Plan (1) Metastasis to brain: (2) Metastatic neoplasm: (3) Cerebral venous sinus thrombosis, acute: Plan Miss Levy is 63-year-old female h/o breast cancer in 2019, underwent chemotherapy plus radiation to the left breast and supraclavicular area of the axilla, was on complete remission until a month ago when she started developing new sx. Worsening of Eye symptoms for 1 weeks now, she also endorses loss of balance. Not sure about primary lesion, could be breast, could be other malignancy d/t radiation exposure. Metastatic work up revealed mets on BL lungs, supraclavicular LNs, liver, orbit, sinuses. Given her multiple mets and likely poor prognosis, palliative involvement in her care is reasonable. Peripheral approach Supraclavicular LNs biopsy is planned per IR tomorrow. If not possible, Pulmonary team is willing to perform Bronchoscopic guided. She is on IV heparin for Superior sagittal sinus obstruction, planned to stop at least 4 hours before the procedure tomorrow( will stop at 3 am). #Metastatic neoplasm: *Unknown primary. H/O breast ca. - Metastatic work up CT of the abdomen and pelvis suggests pulmonary, hepatic, and osseous metastatic disease. MRI Brain and Orbit: metastatic disease in the left temporal bone and left frontal bone, with extension into the left orbital apex. CT of the chest demonstrates metastatic disease/lymphadenopathy. - CBC, CMP: Unremarkable. - CEA: 6.8, ALP: 244. - Radiation Onc on board: appreciate recs. Will start radiation from next week. Dexamethasone 4 mg PO BID. - Pulm/ IR consulted: Team discussion and image review; looks like she has a supraclavicular LN as peripheral lesion. Trial of biopsy on Wednesday. If not possible Pulmonology team will attempt Broncho guided biopsy. - Consult palliative;expect to see on Wednesday. #Possible sagittal sinus occlusion/thrombosis *2/2 to tumor burden. - Heparin drip ongoing. Continue per protocol. - Recheck Xa Q 24 hours. - DC 4 hours before procedure on Wednesday. Dispo: Home once work up complete. Will continue outpatient palliative radiotherapy. Palliative discussion pending. DVT prophy: Heparin Admission and Anticipated Discharge Date Admission Date: September 21, 2024 Results & Data Results & Data Vital Signs (Past 12 Hours) Vital Signs Temp Pulse Resp BP Pulse Ox O2 Del Method 05/05/25 07:29 97.9 F 75 17 121/77 97 Room Air 09/24/24 20:12 Room Air PG Care Time/CCT Total # of Minutes Spent Total Time Spent with Patient: Total time spent is greater than 50% in coordination of care (as documented) at patient's floor/unit and/or counseling patient: Coding Diagnoses Metastasis to brain C79.31 Metastatic neoplasm C79.9 Cerebral venous sinus thrombosis, acute G08
--- NOTE | 2024-09-25 14:06 | Palliative Care Consultation ---
Date of Consultation September 25, 2024 Assessment & Plan (1) Palliative care by specialist: Time of Meetin:00 - 12:45 Participants: Yeimy Gordon AGACNP Patient participation: yes Patient Support System: no visitors present Other Healthcare Provider Participation: None Meeting Location: bedside Advanced Directive available: no If yes, descriptors: The patient's surrogate medical decision maker participated: no Legally authorized health care proxy: spouse is LNOK per PA [id number] Other surrogate: n/a A family meeting was held for Ann Zhang. This meeting was necessary for determining the appropriate course of treatment. (2) Counseling regarding advanced directives and goals of care: Introduced Palliative Medicine and explained our role in advanced care planning, symptom management and navigation through the progression of life limiting di sease. Patient was receptive to palliative services for goals of care discussions. Reviewed we are different from hospice, a home health nurse visiting service. Patient currently exhibits decisional capacity based on her ability to convey understanding of personal PMHx, current medical condition, treatment options nor the risks / benefits of those options, and her ability to make decisions based on such knowledge. Hospital does not have written documentation of patient wishes concerning her chosen proxy for medical decisions. We did discuss the importance of choosing a appropriate proxy for medical decisions who is aware of and will communicate her wishes in the event she loses decisional capacity. Pt shared that she would like to complete an advanced directive and paperwork was provided for her to review. Pt shared that she is and has no children, although her spouse has a son from previous marriage. Per PA [id number], in absence of written documentation of patient wishes, pt's proxy for medical decisions would be her spouse Michael Zhang. Pt does not currently require a proxy for medical decisions. 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 They live together in a home in [place] and she has no children. She shared that she has been independent with all ADLs and iADLs and still worked 4-5 days per week. She shared that she has been the caregiver for her mother at home until recently when her mother required placement in memory unit near her home. She shared that she was worried about being ill when she is needed by her mother and expressed fear that she may not be able to continue to care for her. She shared that she is really worried about what might happen if she is too ill to visit and care for her. She has two brothers who live in [place] and is hopeful that one of them will step forward to act as HCPOA for mom. She shared that she will continue to want everything that can be done to prolong her life (including resuscitation) as long as she is responsible for her mother. Lengthy conversation with pt about her past medical history, prior cancer treatments and current admission course/HPI and how they play into her current goals of care. Pt expressed awareness that she has metastatic disease in her lungs, lymph, bone (spine/pelvis) and brain and that it is not curable. She shared plan for whole brain radiation therapy for 10 fractions; after which chemotherapy will be scheduled. She previously tolerated chemotherapy and radiation well, with only adverse effect being poor appetite and weight loss. She currently denies any symptoms other than the 'annoyance" of her ptosis, which she states is not painful. She expressed feeling hope that the cancer is not as widespread as she had thought, after speaking with Dr. Flores today. We discussed follow up with Dr Olmstead in outpt Palliaive Care clinic setting for ongoing symptom management and navigation/ACP through progression of her disease and treatments. She is agreeable, appointment will be scheduled in conjunction with her outpt med-onc/rad-onc appointments. We will follow loosely as goals are clearly established at this time for ongoing cancer directed treatments and full code/full treat. Plan pt will follow up with Dr Olmstead in outpt palliative care clinic for symptom management and navigation through progression of her disease. Continue full code at this time. History of Present Illness Reason for Consultation: goals of care Requesting Physician: Teddy Flores MD Attending Physician: Teddy Flores MD History of Present Illness Ms. Zhang is a 63-year-old female who presents with a history of locally advanced triple negative left breast cancer treated with surgery, chemotherapy and radiation therapy (2019). The patient has done well since completion of therapy and has underwent surveillance. More recently, the patient presented with left ocular symptoms and headaches in the outpatient setting. Primary care sent the patient to the emergency room and the patient underwent imaging studies which does reveal metastatic disease in the brain as well as involvement of the left skull and orbit. The patient did have a CT of chest which does show pulmonary metastatic disease. Bronchoscopy with biopsy to determine pathology is ordered and pending. Pt is scheduled for whole brain radiation therapy as well as radiation therapy to left skull 10 fractions; after which chemotherapy will be scheduled. 09/21/2024. CT chest. Extensive bilateral noncalcified lung masses with associated mediastinal and hilar lymphadenopathy and left axillary lymphadenopathy. Appearance is most consistent with neoplasm/metastatic disease. Subacute or old or incompletely healed left posterior lateral seventh rib fracture. 09/21/2024. CTA neck. 1. No stenosis or dissection within the bilateral common carotid, cervical internal carotid or vertebral arteries. 2. Multiple masses and nodules within the visualized lungs, including a 5 x 3 cm left upper lobe mass. These are consistent with a neoplastic process and worrisome for lung malignancy. A CT of the chest is recommended for further evaluation. 3. Pathologic mediastinal, left hilar and right supraclavicular lymphadenopathy. 09/21/2024. MRI brain. 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 There is enhancing tumor in the posterior left orbit. Recommend MRI of the orbits with and without contrast for further evaluation. Allergies Allergy/AdvReac Type Severity Reaction Status Date / Time Penicillins Allergy Severe Rash Verified 09/21/24 18:53 erythromycin base Allergy Verified 09/21/24 18:53 Home Medications Medication Instructions Recorded Confirmed Type famotidine 20 mg tablet 20 mg PO DAILY #90 tabs 07/20/24 09/21/24 Rx ondansetron 4 mg disintegrating 4 mg PO Q4H PRN nausea and 09/12/24 09/21/24 Rx tablet vomiting #60 tabs Patient History Medical History Status post chemotherapy Neoadjuvant chemo 08/12/18 thru 12/30/18 Shingles BRCA gene mutation negative Central venous catheter in place 08/03/18 Bone spur right foot. removed Abnormal mammogram Surgical History Hx of tonsillectomy History of bunionectomy H/O foot surgery right foot Family History Mother No problems noted. Father , 83yo Colorectal cancer Brother No problems noted. Brother No problems noted. Denies family history of Ovarian cancer Prostate cancer Myocardial infarction Breast cancer Social History Smoking Status: Former smoker Tobacco Type: Cigarettes Age Started Using Tobacco: 17; Age Quit Using Tobacco: 27; packs per day: 0.5; Cigarettes Per Day: 1/2 PPD x 10 yrs;; Second Hand Exposure: No; Do You Dip or Chew Tobacco: No; Hx Alcohol Use: Yes Hx Substance Use: No Preferred Language: Tunisian Communication Ability: Effective Visual Impairment: Limited Hearing Ability: Normal Sales Person Required: No Beliefs That Will Affect Care: None marital status: Current Living Situation: Spouse current occupational status: retired and disabled 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 [employer] How many Children do You have: 0 Feels Safe at Home: Yes Childhood Exposure to Second-Hand Smoke: Yes Diet: regular caffeine: Yes (2 cups coffee/day) during the past year weight has: remained stable Dental Care, Regularly: Yes Physical Activity Frequency: Daily Physical Activity Frequency Comment: Daily housework and cleaning Seatbelt Use: always Sunscreen Use: Yes Gender Identity: Female Assistive Devices: Cane and Walker Review of Systems Review of Systems: All systems reviewed & are unremarkable except as noted in HPI & below Physical Exam Constitutional: WD/WN, vitals as above Eyes: PERRL, conjunctivae normal, anicteric sclerae +ptosis/proptosis left eye ENMT: external ear and nose normal, oropharynx normal Neck: trachea midline, no thyromegaly Respiratory: normal respiratory effort, lungs clear to auscultation Cardiovascular: RRR, no murmur, no edema Gastrointestinal (Abdomen): normal bowel sounds, soft, nontender, no hepatosplenomegaly Musculoskeletal: no cyanosis or clubbing, extremities motor strength 5/5 Neurologic: awake no focal deficits noted. Awake and pleasantly communicative. Psychiatric: A+Ox3, euthymic affect Results & Data Vital Signs (Past 12 Hours) Vital Signs Temp Pulse Pulse Resp BP Pulse Ox O2 Del Method 09/25/24 11:50 36.6 C 70 17 133/84 96 Room Air 09/25/24 07:29 36.6 C 75 17 121/77 97 Room Air Laboratory Results Abnormal lab results 09/25/24 Range/Units 05:28 WBC 12.16 H (4.8-10.8) K/ul Hct 36.9 L (37.0-47.0) % RDW Coeff of Melissa 14.6 H (11.5-14.5) % Neut # (Auto) 10.80 H (1.40-6.50) K/uL Lymph # (Auto) 0.87 L (1.20-3.40) K/uL Heparin Anti-Xa, Unfract 0.17 L (0.3-0.7) IU/ml BUN/Creatinine Ratio 23.1 H (10-20) Glucose 119 H (70-99(Fasting)) mg/dl Diagnostic Findings Head CTA 09/21/24 13:10 CT angio head wo/w CLINICAL HISTORY: Left eye double vision and ptosis. COMPARISON STUDY: No previous studies for comparison. TECHNIQUE: Unenhanced and arterial phase imaging of the head was performed. Intravenous injection of 119 cc of Optiray 320 IV was uneventful. Sagittal and coronal reformats were viewed as well as maximal intensity projections on an independent 3-D workstation. A dose lowering technique was utilized adhering to the principles of ALARA. FINDINGS: The bilateral M1, M2, A1 and A2 segments are patent. There is no intracranial aneurysm, dissection or stenosis. The posterior circulation is intact. No arterial occlusion is identified. No acute intracranial hemorrhage is present. There is no midline shift. Ventricular system is unremarkable. Basal cisterns are patent. The frontal and ethmoid sinuses are opacified. There is associated bony irregularity with permeative appearance of the left frontal bone and the greater wing of the of the left temporal bone. Associated adjacent dural enhancing soft tissue extends into the left orbital apex. There is abrupt cutoff of the anterior aspect of the superior sagittal sinus which contains hyperdense material. 6 mm partially calcified extra-axial density overlying the left parietal lobe on image 61 of 128 is noted. There is a 4 mm calcific density within the paramedian posterior right frontal lobe on image 75. IMPRESSION: 1. No intracranial arterial occlusion. No intracranial aneurysm or stenosis. 2. Bony irregularity with permeative appearance of the left frontal bone and greater wing of the left sphenoid bone. Associated enhancing dural tissue consistent with tumor which extends into the left orbital apex and overlies the anterior left temporal and frontal lobes. Opacified frontal and sphenoid sinuses which may contain tumor. Occlusion of the anterior superior sagittal sinus. These findings suggest metastatic disease and could be further assessed with MRI of the brain with and without contrast. ACT 112: Negative or not required by law. Electronically signed by: Jason Arboleda M.D. 09/21/2024 1:52 PM Neck CTA 09/21/24 13:10 CT ANGIOGRAPHY OF THE NECK WITH CONTRAST CLINICAL HISTORY: Double vision and ptosis. COMPARISON STUDY: No previous studies for comparison. Technique: CT angiography of the carotid and vertebral arteries was obtained using Optiray and 3D reconstruction on an independent workstation. NASCET criteria was utilized. Automated exposure control was utilized for the study. A dose lowering technique was utilized adhering to the principles of ALARA. Findings: Numerous irregular mass-like lesions within the left upper lobe are partially imaged. Index lesion on image 1 measures at least 5 x 3 cm. There are numerous nodules within visualized portions of the upper lungs. Mediastinal, left hilar and right supraclavicular lymphadenopathy is noted. Index right paratracheal lymph node on image 88 measures 2.3 x 1.1 cm. The bilateral common carotid, cervical internal carotid and vertebral arteries are patent. There is no stenosis, aneurysm or dissection within these vessels. IMPRESSION: 1. No stenosis or dissection within the bilateral common carotid, cervical internal carotid or vertebral arteries. 2. Multiple masses and nodules within the visualized lungs, including a 5 x 3 cm left upper lobe mass. These are consistent with a neoplastic process and worrisome for lung malignancy. A CT of the chest is recommended for further evaluation. 3. Pathologic mediastinal, left hilar and right supraclavicular lymphadenopathy. ACT 112: Negative or not required by law. Electronically signed by: Jason Arboleda M.D. 09/21/2024 1:41 PM Brain MRI 09/21/24 20:34 CR Exam(s): MRI HEAD W/WO Contrast IV Amt: 7cc gadavist administered EXAM: MR Head Without and With Intravenous Contrast CLINICAL HISTORY: Reason for exam: eval left retroorbital mass with ext to brain. TECHNIQUE: Magnetic resonance images of the head/brain without and with intravenous contrast in multiple planes. CONTRAST: Patient received 7cc gadavist administered of IV contrast COMPARISON: No relevant prior studies available. FINDINGS: Brain: Brightly enhancing tumor in the epidural space overlying the frontal lobes, left greater than right with thickening and increased enhancement of the leptomeninges over the left hemisphere. There are tiny ring-enhancing lesions in the left frontal lobe, bilateral occipital lobes bilateral cerebellar lobes and left temporal lobe without significant vasogenic edema . The flow voids at the base the brain are intact. The dural venous sinuses are patent. Ventricles: Unremarkable. No ventriculomegaly. Bones/joints: Intraosseous tumor in the frontal lobes.. No acute fracture. Sinuses: Enhancing soft tissue mass in the ethmoid and frontal sinuses. Mastoid air cells: Unremarkable as visualized. No mastoid effusion. Orbits: There is enhancing tumor in the posterior left orbit. 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 There is enhancing tumor in the posterior left orbit. Recommend MRI of the orbits with and without contrast for further evaluation. Communications: Verify Receipt Electronically signed by: Ching Montero MD 09/22/24 02:[address] 09/21/24 20:34 Exam(s): CT CHEST With Contrast IV Amt: 93 cc opti 320 EXAM: CT Chest With Intravenous Contrast CLINICAL HISTORY: tumors noted on cta neck. TECHNIQUE: Axial computed tomography images of the chest with intravenous contrast. CTDI is 14.32 mGy and DLP is 498.12 mGy-cm. Automated exposure control was utilized for the study. A dose lowering technique was utilized adhering to the principles of ALARA. CONTRAST: Patient received 93 cc opti 320 of IV contrast COMPARISON: CTA Neck 09/21/2024, chest x-ray 10/11/2018. FINDINGS: Lungs: Multifocal noncalcified lung masses, most confluent in the left upper lobe measuring 3.5 x 2.3 cm. Additional prominent right upper lobe 3.2 x 3.2 cm masses. Multiple scattered subcentimeter masses throughout the lung cruz. Pleural space: No pneumothorax. No pleural effusion. Heart: Unremarkable. No cardiomegaly. Trace pericardial fluid versus thickening. No significant coronary artery calcifications. Bones/joints: Degenerative changes of the spine. No acute fracture. Incompletely healed fracture in the posterior lateral left seventh rib with periosteal reaction. Soft tissues: Unremarkable. Vasculature: Unremarkable. No thoracic aortic aneurysm. Lymph nodes: Diffuse mediastinal and bilateral hilar lymphadenopathy, largest lymph node is an enhancing 2.3 x 1.4 cm subcarinal lymph node. Enhancing 10 x 9 mm and 12.4 x 9.3 mm left axillary lymph nodes. Abdomen: 6 mm hypodense lesion right lobe of liver too small to characterize. Probable 10 mm cyst in the right lobe of liver. Additional 1-2 mm hypodense lesion in the left lobe of liver too small to characterize. IMPRESSION: Extensive bilateral noncalcified lung masses with associated mediastinal and hilar lymphadenopathy and left axillary lymphadenopathy. Appearance is most consistent with neoplasm/metastatic disease. Subacute or old or incompletely healed left posterior lateral seventh rib fracture. Electronically signed by: Celio Braun M.D. 09/22/24 02:18 AM Orbit MRI 09/22/24 07:41 MRI OF THE ORBITS WITH AND WITHOUT CONTRAST CLINICAL HISTORY: Suspicious orbital mets. COMPARISON STUDY: Head CT, CTA of the head and MRI of the brain September 21, 2024. TECHNIQUE: Utilizing a 3 Kell magnet and dedicated coil, multiplanar, multi echo imaging of the orbits was performed pre and postcontrast administration. Intravenous injection of 7 cc of Gadavist was uneventful. FINDINGS: Numerous parenchymal enhancing lesions consistent with metastases are better depicted on MRI of September 21, 2024. Extensive irregular pachymeningeal dural thickening overlying the cerebral hemispheres is most pronounced anteriorly and overlying the anterior left temporal and frontal lobes. This enhancing soft tissue measures 7 mm in thickness. There is associated sulcal effacement and mild compression of the left lateral ventricle. No significant midline shift is present. There is associated marrow replacement within the bilateral frontal bones and the greater wing of the left sphenoid bone. Enhancing soft tissue and fluid within the frontal and ethmoid sinuses is present. Enhancing soft tissue consistent with tumor extends into the left orbital apex. There is asymmetric dilatation of the left superior ophthalmic vein. Enhancing soft tissue encases the left cavernous carotid. There is no evidence for hydrocephalus. Basal cisterns are patent. Suspected associated occlusion of the anterior aspect of the superior sagittal sinus. IMPRESSION: 1. Extensive irregular pachymeningeal dural enhancement, most pronounced overlying the anterior left temporal and frontal lobes consistent with metastatic disease. Associated involvement of the frontal bones and greater wing of the left sphenoid bone. Extension of tumor into the left orbital apex and ethmoid and frontal sinuses, as detailed above. 2. Multiple enhancing parenchymal lesions consistent with metastases, better depicted on MRI of the brain of September 21, 2024. 3. No evidence for hydrocephalus. ACT 112: Negative or not required by law. Electronically signed by: Jason Arboleda M.D. 09/22/2024 1:35 PM Abdomen/Pelvis CT 09/22/24 13:[address] WITH IV AND ORAL CONTRAST CT DOSE: 723.39 mGy.cm HISTORY: Follow-up study in a patient with history of metastatic breast cancer. eval metastatic disease TECHNIQUE: Multiaxial CT images of the abdomen and pelvis were performed following the IV administration of 93 cc of Optiray and oral contrast. A dose lowering technique was utilized adhering to the principles of ALARA. COMPARISON STUDY: 07/28/2018. FINDINGS: Tree-in-bud and solid pulmonary nodules of the lung bases are seen measuring up to 10 mm within the right lower lobe. No pneumatosis or pneumoperitoneum. Unremarkable spleen, pancreas, gallbladder and adrenal glands. Scattered hepatic cysts are redemonstrated. Additionally, there are a few scattered ill-defined hypodense lesions of the liver including a 9 mm focus in the inferior right hepatic lobe on image 114 and a 1.1 cm focus of the right hepatic lobe on image 45 and a 12 mm focus of the left hepatic lobe on image 56. These foci were not clearly seen on the prior exam. Patent portal vein. Unremarkable kidneys. No hydronephrosis. Unremarkable urinary bladder. Uterus is within normal limits. No abdominal aortic aneurysm. Tiny hiatal hernia. Moderate colonic fecal retention. Colonic diverticulosis without acute diverticulitis. Noninflamed appendix. Heterogeneous mixed lytic and sclerotic metastasis are noted within the L3 and L4 vertebral bodies with epidural extension of disease also noted posterior to the levels. There is at least moderate central canal stenosis at the L3 level. Neural foraminal narrowing is seen at L2-L3, L3-L4 and L4-L5, severe on the left at L3-L4. Additional ill-defined metastatic lesion within the right iliac bone on image 228. No definite acute pathologic fracture. IMPRESSION: 1. No bowel obstruction or bowel wall thickening. 2. Bibasilar nodular foci of the lungs suggestive of pulmonary metastasis. 3. Small ill-defined liver lesions suggestive of hepatic metastatic disease. 4. Osseous metastasis with largest lesions noted within the lower lumbar spine and right iliac bone. There is epidural and paraspinal extension of disease causing associated central canal and neural foraminal stenosis of the lumbar spine as above. 5. Colonic diverticulosis without acute diverticulitis. ACT 112: Negative or not required by law. The above report was generated using voice recognition software. It may contain grammatical, syntax or spelling errors. Electronically signed by: Cedric Farmer M.D. 09/22/2024 3:12 PM Medications Administered Current Inpatient Medications Acetaminophen (Acetaminophen 325 Mg Tab) 650 mg PO Q4H PRN PRN Reason: pain/fever Stop: 10/21/24 20:33 Dexamethasone (Dexamethasone 4 Mg Tab) 4 mg PO BID [facility] Stop: 10/22/24 20:59 Last Admin: 09/25/24 08:05 Dose: 4 mg Famotidine (Famotidine 20 Mg Tab) 20 mg PO DAILY [facility] Stop: 10/22/24 08:59 Last Admin: 09/25/24 08:05 Dose: 20 mg Fluticasone Propionate (Fluticasone Propionate Na Spr 16 Gm Btl) 2 sprays NA BID [facility] Stop: 10/24/24 09:44 Last Admin: 09/25/24 08:04 Dose: 2 sprays Heparin Sodium/Dextrose (Heparin 07887 Unit/500 Ml D5w) 25,000 units in 500 mls @ 17 mls/hr IV .Q24H [facility]; Protocol Stop: 10/21/24 17:44 Last Admin: 09/25/24 09:57 Dose: Not Given Lorazepam (Lorazepam 0.5 Mg Tab) 0.5 mg PO Q6H PRN PRN Reason: Anxiety Stop: 10/21/24 20:33 Ondansetron HCl (Ondansetron Inj 2 Mg/Ml 2 Ml Vial) 4 mg IV Q6H PRN PRN Reason: Nausea Stop: 10/21/24 20:33 Last Admin: 09/22/24 14:05 Dose: 4 mg Polyethylene Glycol (Polyethylene (Miralax) 17 Gm Pack) 17 gm PO DAILY PRN PRN Reason: Constipation Stop: 10/21/24 20:33 PG Care Time/CCT Total # of Minutes Spent Total Time Spent with Patient: Total time spent is greater than 50% in coordination of care (as documented) at patient's floor/unit and/or counseling patient: Advanced Care Planning 50119 Advanced Care Planning 30 [place] [address] IN/OBS CONSULT LVL 3,45M Patient Type New Medical Decision Making Low Complexity Diagnoses Palliative care by specialist Z51.5 Counseling regarding advanced directives and goals of care Z71.89 Additional Codes Advanced Care Planning - 05452 Advanced Care Planning 30 Min: 80778 Advanced Care Planning 30 Min ([id number])
[2024-09-25 15:45] VITALS: PULSE 75
--- NOTE | 2024-09-25 15:51 | Discharge Summary ---
Discharge Summary Date of Service September 25, 2024 Principal Dx & Hospital Course #1 = Principal Diagnosis (1) Metastasis to brain: (2) Metastatic neoplasm: Plan Miss Levy is 63-year-old female h/o breast cancer in 2019, underwent ch emotherapy plus radiation to the left breast and supraclavicular area of the axilla, was on complete remission until a month ago when she started developing new sx. Worsening of Eye symptoms for 1 week, she also endorses loss of balance. Not sure about primary lesion, could be breast, could be other malignancy d/t radiation exposure. Metastatic work up revealed mets on BL lungs, supraclavicular LNs, liver, orbit, sinuses. Given her multiple mets and likely poor prognosis, palliative involvement in her care is reasonable. Peripheral approach Supraclavicular LNs biopsy is planned per IR, unfortunately cannot be arranged in pt, did start XRT treatment, and will need follow up with Dr Stone #Metastatic neoplasm: *Unknown primary. H/O breast ca. - Metastatic work up CT of the abdomen and pelvis suggests pulmonary, hepatic, and osseous metastatic disease. MRI Brain and Orbit: metastatic disease in the left temporal bone and left frontal bone, with extension into the left orbital apex. CT of the chest demonstrates metastatic disease/lymphadenopathy. - CEA: 6.8, ALP: 244. - Radiation Onc began treatment 09/25/24 Dexamethasone 4 mg PO daily and as directed by rad onc/ onc - Pulm/ IR consulted: Team discussion and image review; looks like she has a supraclavicular LN as peripheral lesion. Trial of biopsy on Wednesday. If not possible Pulmonology team will attempt Broncho guided biopsy. - Consult palliative; did see while inpt #Possible sagittal sinus occlusion/thrombosis *2/2 to tumor burden. - I reviewed initial CT with Dr Arboleda and now feel that the occlusion is not thrombus but more likely tumor, I discussed with Dr Stone and she will decide if prophylaxis VTE prevention is needed once LN biopsy and decision of mediport Notes For Next Care Provider needs IR for tissue diagnosis, consider port placement, consider VTE prevention Admission HPI Per Admitting Provider 63-year-old female with a history of breast cancer diagnosed in 2019 who has a 5-week history of intermittent vomiting and some progressive left facial discomfort. This is evolved until some diplopia and some mild proptosis and facial swelling. The patient recently has had seen general surgery for her nausea and vomiting with a CT scan done at the [facility] through Dr. Julian. Reportedly on that CT scan she was told she may have metastatic disease in her lumbar spine and also noticing disease in her lungs. Attempts to coordinate outpatient care was made with the possibility of outpatient PET scan being scheduled. However the patient presented with progressive diplopia and facial changes and is found on imaging to have worrisome changes with a retro- orbital mass extending into her frontal lobe opacification of the frontal and sphenoid sinuses and also concerns for occlusion of the anterior superior sagittal sinus which we cannot tell if it is tumor or clot. The patient has chronic daily headaches but they have not worsened. Discharge Exam Patient continues to have ptosis and she prefers to close her eye to avoid double vision. She has no respiratory distress at this time she is agreeable to go home after discussions of the coordination of her care Discharge Plan Discharge Items Patient Disposition: Home - Self-Care Reason For Visit: SAGITAL SINUS THROMBOSIS Discharge Diagnosis: periorbital mass with occlusion of sagittal sinus outsole beveler metastatic disease Condition on Discharge: Serious Activity: Resume your previous activity Non-emergency contact: Primary Care Provider Call non-emergency contact if: your symptoms worsen Follow-up/Referrals: Ann Mayes MD [Primary Care Provider] - Juan Antonio Nails PA-C [Radiologist] - 09/28/24 10:00 am (Office will call if able to get sooner appointment. Please arrive by 9:50 to the main entrance. You may take meds and may have breakfast) Diet: Regular Addtl Attending Provider Instructions: As we spoke there are a bit of outstanding schedule for you to wrangle appointment with Dr Stone, Interventional radiology follow up Slim Nails continue to follow up with Dr Monzon for your radiation treatments As we discussed, at this time we are not going to discharge you on anticoagulation ,as we feel the changes seen on your scan are likely not blood clot but more likely tumor Pending Studies at Discharge: Yes Stand-Alone Forms: [facility] [employer], Smoking Cessation Medications and DC Order Prescriptions: New dexamethasone 4 mg Tablet 4 mg PO DAILY Qty: 10 0RF Continued famotidine 20 mg tablet 20 mg PO DAILY Qty: 90 3RF memantine 5 mg tablet 5 mg PO DAILY Qty: 70 0RF Rx Instructions: As directed. Instruction sheet given to the patient. Instruction sheet will be faxed to the pharmacy. Patient will need a new prescription at the lesion on the first month. ondansetron 4 mg tablet,disintegrating 4 mg PO Q4H PRN (Reason: nausea and vomiting) Qty: 60 0RF Rx Instructions: [facility] ER 08/23/24 Discharge Orders: Discharge Order (Routine); Ordered 09/25/24 Ordered By: Teddy Flores Admission Data Admit Date/Time: 09/21/24 18:31 Attending Provider: Teddy Flores Admit Provider: Teddy Flores Primary Care Provider: Ann Mayes Other Providers: Lila Lau; Teddy Flores; Francia Sue; Sunil Monzon; Camron Moreira; Chriss Cormier; Bhargav Martinez; Marshal Shelton; Nelida Man; Janee Guevara; James Almaguer; Annalise Gordon; Laura [facility] Stay Data Consultations 09/21/24 17:58 ED Decision to Admit Stat 09/21/24 18:31 HIM [Consult Health Information Management] Stat 09/22/24 09:35 Consult Radiation Oncology Routine 09/22/24 09:58 Consult Pulmonology Routine 09/23/24 11:05 Consult Palliative Care Routine Procedures Performed Operation Date: 09/22/24 13:30 <No data on this case meets the specified criteria> Diagnostic Imagining Performed 09/21/24 13:10 CT angio head wo/w Stat CT angio neck with con Stat 09/21/24 20:34 CT chest diagnostic w con Routine MRI Brain [MR brain wo/w con] Routine 09/22/24 07:41 MRI Orbit [MR orbit wo/w con] Routine 09/22/24 10:59 CT guide rad therapy head Routine 09/22/24 13:20 CT Abd and Pelvis [CT abd pelvis oral and IV con] Routine 09/26/24 IR FNA lymph node US Routine Pending Results Patient Have Any Pending Studies at Discharge: Yes Discharge Instructions Given to Patient (Per Discharging Provider) As we spoke there are a bit of outstanding schedule for you to wrangle appointment with Dr Stone, Interventional radiology follow up Slim Nails continue to follow up with Dr Monzon for your radiation treatments As we discussed, at this time we are not going to discharge you on anticoagulation ,as we feel the changes seen on your scan are likely not blood clot but more likely tumor Total Time Total Time Spent Total Time Spent (In Minutes): It required greater than 30 minutes to prepare this patient for discharge. Coding Level of Care Code 51961 INP/OBS DISCH >30 MIN Diagnoses Metastasis to brain C79.31 Metastatic neoplasm C79.9
[2024-09-25 16:46] VITALS: BP 122/79; RESP 16; TEMP 98.1; O2SAT 98
== END 2024-09-25 16:56 | disposition home or self-care (01) | DRG 54 ==
LOC: ED 12:55 → SUATTDRO 18:31 → 3W 18:31 → 3N 09-24 18:21

== ENCOUNTER 2024-12-02 11:12 | Inpatient (IN) ==
--- NOTE | 2024-12-02 12:15 | Emergency Department Note ---
Impression & Plan Sepsis, Bilateral pneumonia, Leukocytosis, Elevated troponin, Left leg weakness ED Provider Note HISTORY OF PRESENT ILLNESS: Patient is a 63-year-old female presenting with recurrent falls and leg weakness. Patient reports that she was seen for a blood transfusion yesterday. She reports that she has been very weak since getting her blood transfusion and has had 5 total falls between yesterday evening and today. Reports that it seems like her left leg gives out from underneath her. She denies striking her head or loss of consciousness. Denies any chest pain, shortness of breath or lightheadedness prior to the falls. Reports that just seems like her leg gives out. She is currently on chemotherapy for breast cancer. She states her last round of chemo was 3 days ago. She denies any fevers at home. Denies any abdominal pain, nausea or vomiting. Denies any dysuria or hematuria. Denies any cough or shortness of breath. Patient reports that she finished a course of antibiotics about a week ago for acute urinary tract infection. ROS: as above PHYSICAL EXAM: Constitutional: Patient appears in no acute distress. HENT: Head: Normocephalic and atraumatic. Eyes: EOMI, PERRL Mouth/Throat: Mucous membranes moist. Neck: Trachea midline. Neck supple. Cardiovascular: RRR, No murmurs, rubs or gallops. Intact distal pulses. Pulmonary/Chest: No respiratory distress. Breath sounds clear and equal bilaterally. No wheezes or rales Abdominal: Abdomen soft, no tenderness, rebound or guarding. Musculoskeletal: No edema, tenderness or deformity noted. Skin: Warm and dry. No rash, erythema, pallor or cyanosis Psychiatric: Appropriate mood and affect for situation. Neurological: Alert and keenly responsive. CN II-XII grossly intact. Patient has some subtle weakness in her left lower extremity with straight leg raise as compared to her right lower extremity. MDM: - Vitals signs showed tachycardia - History obtained via patient. History as above. - Chronic conditions affecting care: metastatic breast cancer; cerebral venous sinus thrombosis; - Differential diagnoses include, but are not limited to: UTI; pneumonia; viral syndrome; ACS; electrolyte abnormality; dehydration; CVA; intracranial hemorrhage - Order placed for continuous cardiac monitoring. At this time, monitor showed rate of 94 bpm with normal sinus rhythm, per my interpretation. - External medical records reviewed. Primary care visit note dated 11/13/2024 was reviewed. Patient was treated for urinary tract infection with Macrobid. - EKG image interpreted by myself showed normal sinus rhythm. Rate 96 bpm. QT 356. No acute ischemic changes. - Laboratory workup interpreted by myself showed leukocytosis (WBC 40.67); anemia; normal PT/INR; stable electrolytes; normal lactate; normal procalcitonin; normal TSH; elevated troponin (27.8); normal CK - UA negative for infection - CXR image reviewed by myself showed looks like bilateral pneumonia, per my interpretation. Radiology notes worsening bilateral perihilar pneumonia and pulmonary vascular congestion. - Xray left femur negative for acute fracture. - Patient reports she was given Neupogen injection on with her chemo. Her profound leukocytosis may be secondary to this versus sepsis from her bilateral pneumonia. - Blood cultures obtained - MRSA DNA nasal swab ordered - Patient given 2L NS in ER. Patient's sepsis fluid volume calculation based on ideal body weight is 1772.70 mL - Given 2g IV cefepime for antibiotic coverage. - CT head wo contrast showed a new 4 mm right posterior convexity frontal hyperdensity which appears similar to other cortical calcifications. They report that this is likely chronic but small focal hemorrhage could be considered. No associated edema. - Discussion was had with director case about patient's case and need for admission - Hospitalist, Dr. Walden, consulted for admission - Patient admitted to [facility] hospitalist service for further evaluation and management. I have personally spent 46 minutes of critical care time in the direct management of this patient. This includes bedside care, interpretation of diagnostic studies, and testing, discussion with consultants, patient, and family members, and other required patient management activities. This 46 minutes is in excess of all separately billable procedures. ASSESSMENT AND PLAN: Diagnosis: Sepsis; bilateral pneumonia; leukocytosis; elevated troponin; left leg weakness Plan: admit Past Med/Surg History Problem List (Updated 12/02/24 @ 13:42 by Maia Hess MD) Left leg weakness (Acute) Elevated troponin (Acute) Leukocytosis (Acute) Bilateral pneumonia (Acute) Sepsis (Acute) Fall Bilateral leg weakness Periorbital edema of both eyes LAD (lymphadenopathy), mediastinal Metastasis to brain Facial mass (Acute) Double vision (Acute) Lung mass (Acute) Cerebral venous sinus thrombosis, acute (Acute) Metastatic neoplasm Proptosis Ptosis Osteopenia GERD (gastroesophageal reflux disease) mild hiatal hernia Lymphedema Peripheral neuropathy Foot drop BRCA gene mutation negative Medical History (Updated 12/02/24 @ 13:42 by Maia Hess MD) Malignant neoplasm of lower-outer quadrant of left breast of female, estrogen receptor negative FNA L axillary lump 06/24/18- s/p chemo; s/p left breast partial mastectomy and left SN excision 01/2019; s/p XRT 06/2019 Burning with urination started 11/12/24, denies fever or any other symptoms- patient instructed by [facility] nursing to call surgeon and PCP office to discuss further management Malignant neoplasm of breast metastatic to bone 09/2024 with metastasis to bone, brain, lung Limb alert care status left arm Nausea and vomiting Ptosis - steadily improved per 11/06/24 oncology records Proptosis Left eye, due to tumor Cerebral venous sinus thrombosis, acute Per discharge summary 09/25/24- after further review- feel that occlusion is not a thrombus but more likely tumor Lung mass Facial mass Lesion of right femur Had 5 XRT treatments, last was on 10/31/24 Nerve damage Residual balance issues Peripheral neuropathy Lymphadenopathy, mediastinal Double vision Tumor pushing on left eye Metastasis to brain Taking memantine as precautionary- currently tapering off was on daily dexamethasone (currently tapering off ) recently completed SBRT radiation to the brain Periorbital edema of both eyes L > R- states tumor is pushing her left eye outward Osteopenia GERD (gastroesophageal reflux disease) mild hiatal hernia Status post chemotherapy Neoadjuvant chemo 07/2018-12/2018 Surgical History H/O insertion of central venous access port (11/15/24) Insertion of Left Internal Jugular Access Port with Fluoroscopy(Left) - Lambert Samaniego, DO, FACS History of lumbar puncture (02/2019) H/O insertion of central venous access port (2018) right side/removed History of removal of Port-a-Cath (2019) 2019 Hx of lymph node excision (01/25/19) 13 lymph nodes, left arm pit Hx of tonsillectomy History of bunionectomy (1992) right foot, as well as bone spur removal Family History Mother No problems noted. Father , 83yo Colorectal cancer Brother No problems noted. Brother No problems noted. Denies family history of Ovarian cancer Prostate cancer Myocardial infarction Breast cancer Social History Smoking Status: Former smoker Tobacco Type: Cigarettes Age Started Using Tobacco: 17; Age Quit Using Tobacco: 27; packs per day: 0.5; Cigarettes Per Day: 1/2 PPD x 10 yrs;; Second Hand Exposure: No; Do You Dip or Chew Tobacco: No; Hx Alcohol Use: Yes Hx Substance Use: No Preferred Language: Macedonian Communication Ability: Effective Visual Impairment: No Limitations Hearing Ability: Normal Fpga Engineer Required: No Beliefs That Will Affect Care: None marital status: Current Living Situation: Spouse current occupational status: retired and disabled 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 [employer] How many Children do You have: 0 Feels Safe at Home: Yes Childhood Exposure to Second-Hand Smoke: Yes Diet: regular caffeine: Yes (2 cups coffee/day) during the past year weight has: remained stable Dental Care, Regularly: Yes Physical Activity Frequency: Daily Physical Activity Frequency Comment: Daily housework and cleaning Seatbelt Use: always Sunscreen Use: Yes Gender Identity: Female Assistive Devices: Cane and Glasses Allergies Allergies Allergy/AdvReac Type Severity Reaction Status Date / Time erythromycin base Allergy Severe Facial Verified 12/02/24 13:06 swelling Penicillins Allergy Severe Rash Verified 12/02/24 13:06 Home Meds Home Medications Medication Instructions Recorded Confirmed prochlorperazine maleate 10 mg 10 mg PO Q6H PRN Nausea And 10/18/24 12/02/24 tablet (Compazine) Vomiting famotidine 20 mg tablet 20 mg PO DAILY PRN gerd 11/01/24 12/02/24 sennosides 8.6 mg tablet (Senokot) 8.6 mg PO BID PRN contipation 11/01/24 12/02/24 cyanocobalamin (vitamin B-12) 500 500 mcg PO BID 11/06/24 12/02/24 mcg tablet (Vitamin B-12) ondansetron 8 mg disintegrating 8 mg PO Q8H PRN Nausea And Vomiting 12/02/24 12/02/24 tablet Results & Data (ED) Vital Signs Vital Signs - 24 hr 12/02/24 11:16 07/12/25 12:07 12/02/24 13:43 Temperature 37.1 C Temperature Source Temporal Artery Scan Pulse Rate 105 H 94 H Pulse Rate [Left Finger] 82 Respiratory Rate 20 20 Respiratory Effort / Characteristics Non-Labored Spontaneous Respiratory Depth Normal Blood Pressure 100/67 Blood Pressure [Right Arm] 105/72 Blood Pressure Mean 78 Blood Pressure Mean [Right Arm] 83 Pulse Oximetry 93 97 Oxygen Delivery Method Room Air Sepsis Recent Fever Within 48 Hours No Sepsis New/Unexplained Change in Mental Status No Sepsis Action Taken by Nursing No Action Required Laboratory Data 12/02/24 12:26 12/02/24 12:26 Lab Results 12/02/24 12/02/24 Range/Units 12:26 13:00 WBC 40.67 H* (4.8-10.8) K/ul RBC 3.42 L (4.20-5.40) M/uL Hgb 10.2 L (12.0-16.0) g/dl Hct 30.6 L (37.0-47.0) % MCV 89.5 (80.0-100.0) fL MCH 29.8 (25.0-34.0) pg MCHC 33.3 (32.0-36.0) g/dL RDW Std Deviation 62.1 H (36.4-46.3) fL RDW Coeff of Melissa 21.7 H (11.5-14.5) % Plt Count 188 (130-400) K/uL MPV 9.4 (9.4-12.4) fL Immature Gran % (Auto) 5.0 % Neut % (Auto) 90.5 % Lymph % (Auto) 1.4 % Greer % (Auto) 2.8 % Eos % (Auto) 0.0 % Baso % (Auto) 0.3 % Neut # (Auto) 36.79 H (1.40-6.50) K/uL Lymph # (Auto) 0.57 L (1.20-3.40) K/uL Greer # (Auto) 1.13 H (0.11-0.59) K/uL Eos # (Auto) 0.01 (0.00-0.50) K/uL Baso # (Auto) 0.13 (0.00-0.20) K/uL Immature Gran # (Auto) 2.04 H (0.01-0.20) K/uL Absolute Nucleated RBC 0.06 (0.00-0.12) K/uL Nucleated RBC % (auto) 0.1 % Toxic Vacuolation 1+ Dohle Bodies 1+ Polychromasia 1+ Anisocytosis Present PT 11.4 (9.0-12.0) Seconds INR 1.1 (0.9-1.1) Sodium 139 (136-145) mmol/L Potassium 3.5 (3.5-5.1) mmol/L Chloride 105 (98-107) mmol/L Carbon Dioxide 27 (21-32) mmol/L Anion Gap 7 (3-11) BUN 7 (6-23) mg/dl Creatinine 0.62 (0.6-1.2) mg/dl Est Cr Clr Drug Dosing Not Reportable eGFR 99.38 BUN/Creatinine Ratio 11.3 (10-20) Glucose 89 (70-99(Fasting)) mg/dl Lactate 1.4 (0.4-2.0) mmol/L Calcium 8.4 L (8.6-10.3) mg/dl Magnesium 2.1 (1.7-2.4) mg/dl Total Bilirubin 0.8 (0.2-1.0) mg/dl AST 40 H (13-39) U/L ALT 53 H (7-52) U/L Alkaline Phosphatase 193 H (34-104) U/L Total Creatine Kinase 177 (26-192) U/L Troponin I High Sens 27.8 H (0-14) pg/ml Total Protein 5.7 L (6.0-8.3) gm/dl Albumin 3.1 L (3.4-5.0) gm/dl Globulin 2.6 (2.5-4.0) gm/dl Albumin/Globulin Ratio 1.2 (0.9-2) Procalcitonin 0.18 (0-0.5) ng/ml TSH 2.098 (0.300-4.500) uIu/ml Urine Color Yellow Urine Appearance Clear (Clear) Urine pH 7.0 (4.5-7.5) Ur Specific Dickinson 1.006 (1.000-1.030) Urine Protein Negative (Negative) Urine Glucose (UA) Negative (Negative) Urine Ketones Negative (Negative) Urine Blood Negative (Negative) Urine Nitrite Negative (Negative) Urine Bilirubin Negative (Negative) Urine Urobilinogen Negative (Negative) Ur Leukocyte Esterase 1+ H (Negative) Urine WBC (Auto) 0-5 (0-5) /hpf Urine RBC (Auto) 0-2 (0-2) /hpf U Hyaline Cast (Auto) 0-2 (0-2) /lpf U Epithel Cells (Auto) 0-2 (0-2) /hpf Urine Bacteria (Auto) None Seen (None Seen) Urine Comment Administered Medications Sodium Chloride (Nss) 2,000 mls @ 999 mls/hr IV .Q2H1M ONE Stop: 12/02/24 15:10 Last Admin: 12/02/24 13:43 Dose: 999 mls/hr Documented By: BOOKER Imaging Data Radiologist's Impression: Chest X-Ray 12/02/24 11:44 EXAM: Radiograph of the Chest 1 View INDICATION: Pain TECHNIQUE: Frontal view of the chest. COMPARISON: 11/15/2024 FINDINGS: Lungs and pleural spaces: Increased conspicuity of bilateral perihilar infiltrates and generalized interstitial thickening. No pleural effusion or pneumothorax. Heart: Shape and configuration within normal limits allowing for technique. Mediastinum: Normal contour. Bones/joints: No fracture, erosion or dislocation. Soft tissues: No abnormality noted. No radiopaque foreign body noted. Tubes, lines and devices: Left internal jugular port catheter tip terminates in the distal SVC. Upper abdomen: No abnormality noted. IMPRESSION: 1. Worsening bilateral perihilar pneumonia and pulmonary vascular congestion. 2. Lines and tubes as above. ACT 112: N/A Electronically signed by Candace Lam 12-02-2024 12:29 PM Femur X-Ray 12/02/24 11:59 EXAM: Radiographs of the Left Femur 2 Views INDICATION: Pain TECHNIQUE: Frontal and lateral views of the left femur. COMPARISON: No relevant prior studies available. FINDINGS: Bones/joints: No fracture, erosion or dislocation. Soft tissues: No abnormality noted. No radiopaque foreign body noted. IMPRESSION: No abnormality noted. ACT 112: N/A Electronically signed by Candace Lam 12-02-2024 12:[address] 12/02/24 11:59 EXAM: CT Head Without Intravenous Contrast INDICATION: Left lower extremity weakness. TECHNIQUE: Axial computed tomography images of the head/brain without intravenous contrast. Sagittal and/or coronal reformats are provided. Sagittal and coronal reformatted images were created and reviewed. This CT exam was performed using one or more of the following dose reduction techniques: automated exposure control, adjustment of the mA and/or kV according to patient size, and/or use of iterative reconstruction technique. COMPARISON: 09/21/2024 FINDINGS: Limitations: None. Brain and extra-axial spaces: There is age appropriate cortical atrophy and chronic ischemic periventricular white matter hypodensity. No acute infarct, hemorrhage or mass noted. Stable scattered parenchymal calcifications consistent with previous infection. New 4 mm right convexity hyperdensity. Other cortical calcifications are unchanged allowing for slice selection. Bones/joints: No acute changes. Soft tissues: No significant abnormality noted. Vasculature: No acute abnormality noted. Sinuses: There is no almost complete opacification of the left maxillary sinus. There is stable severe opacification of the ethmoid and frontal sinuses. Mastoid air cells: No mastoid effusion. Orbits: No significant abnormality noted. IMPRESSION: 1. Cerebral atrophy. 2. There is a new approximate 4 mm right posterior convexity frontal hyperdensity which appears similar to other cortical calcifications which generally reflect previous infection. Small focal hemorrhage should be considered given the short-term interval change. Recommend short-term follow-up. No associated edema. ACT 112: N/A Electronically signed by Candace Lam 12-02-2024 12:57 PM Discharge Plan Visit Data Chief Complaint: Leg Weakness, Bilateral Stated Complaint: BILAT LEG WEAKNESS, NEUROPATHY, REPEAT FALLS ED Provider: Maia Hess Discharge Problem: Sepsis, Bilateral pneumonia, Leukocytosis, Elevated troponin, Left leg weakness Condition: Fair Forms Stand Alone Forms: [facility] [employer] Prescriptions Prescriptions: No Action prochlorperazine maleate [Compazine] 10 mg tablet 10 mg PO Q6H PRN (Reason: Nausea And Vomiting) sennosides [Senokot] 8.6 mg Tablet 8.6 mg PO BID PRN (Reason: contipation) famotidine 20 mg tablet 20 mg PO DAILY PRN (Reason: gerd) cyanocobalamin (vitamin B-12) [Vitamin B-12] 500 mcg Tablet 500 mcg PO BID ondansetron 8 mg tablet,disintegrating 8 mg PO Q8H PRN (Reason: Nausea And Vomiting) Referrals Referrals: Ann Mayes MD [Primary Care Provider] -
--- NOTE | 2024-12-02 12:28 | XRay Report ---
EXAM: Radiographs of the Left Femur 2 Views INDICATION: Pain TECHNIQUE: Frontal and lateral views of the left femur. COMPARISON: No relevant prior studies available. FINDINGS: Bones/joints: No fracture, erosion or dislocation. Soft tissues: No abnormality noted. No radiopaque foreign body noted. IMPRESSION: No abnormality noted. ACT 112: N/A Electronically signed by Candace Lam 12-02-2024 12:27 PM
--- NOTE | 2024-12-02 12:30 | XRay Report ---
EXAM: Radiograph of the Chest 1 View INDICATION: Pain TECHNIQUE: Frontal view of the chest. COMPARISON: 11/15/2024 FINDINGS: Lungs and pleural spaces: Increased conspicuity of bilateral perihilar infiltrates and generalized interstitial thickening. No pleural effusion or pneumothorax. Heart: Shape and configuration within normal limits allowing for technique. Mediastinum: Normal contour. Bones/joints: No fracture, erosion or dislocation. Soft tissues: No abnormality noted. No radiopaque foreign body noted. Tubes, lines and devices: Left internal jugular port catheter tip terminates in the distal SVC. Upper abdomen: No abnormality noted. IMPRESSION: 1. Worsening bilateral perihilar pneumonia and pulmonary vascular congestion. 2. Lines and tubes as above. ACT 112: N/A Electronically signed by Candace Lam 12-02-2024 12:29 PM
[2024-12-02 12:49] LABS: Hematocrit (blood only) 30.6 % (37.0-47.0); Hemoglobin 10.2 g/dl (12.0-16.0); Mean Corpuscular Hemoglobin 29.8 pg (25.0-34.0); Mean Corpuscular Volume 89.5 fL (80.0-100.0); Platelet Count 188 K/uL (130-400); RDW Standard Deviation 62.1 fL (36.4-46.3); Red Blood Count 3.42 M/uL (4.20-5.40); White Blood Count 40.67 K/ul (4.8-10.8)
--- NOTE | 2024-12-02 12:57 | CT Scan Report ---
EXAM: CT Head Without Intravenous Contrast INDICATION: Left lower extremity weakness. TECHNIQUE: Axial computed tomography images of the head/brain without intravenous contrast. Sagittal and/or coronal reformats are provided. Sagittal and coronal reformatted images were created and reviewed. This CT exam was performed using one or more of the following dose reduction techniques: automated exposure control, adjustment of the mA and/or kV according to patient size, and/or use of iterative reconstruction technique. COMPARISON: 09/21/2024 FINDINGS: Limitations: None. Brain and extra-axial spaces: There is age appropriate cortical atrophy and chronic ischemic periventricular white matter hypodensity. No acute infarct, hemorrhage or mass noted. Stable scattered parenchymal calcifications consistent with previous infection. New 4 mm right convexity hyperdensity. Other cortical calcifications are unchanged allowing for slice selection. Bones/joints: No acute changes. Soft tissues: No significant abnormality noted. Vasculature: No acute abnormality noted. Sinuses: There is no almost complete opacification of the left maxillary sinus. There is stable severe opacification of the ethmoid and frontal sinuses. Mastoid air cells: No mastoid effusion. Orbits: No significant abnormality noted. IMPRESSION: 1. Cerebral atrophy. 2. There is a new approximate 4 mm right posterior convexity frontal hyperdensity which appears similar to other cortical calcifications which generally reflect previous infection. Small focal hemorrhage should be considered given the short-term interval change. Recommend short-term follow-up. No associated edema. ACT 112: N/A Electronically signed by Candace Lam 12-02-2024 12:57 PM
[2024-12-02 13:00] LABS: Anisocytosis Present; Dohle Bodies 1+; Immature Granulocytes # (auto) 2.04 K/uL (0.01-0.20); Immature Granulocytes % (auto) 5.0 %; Polychromasia 1+; Toxic Vacuolation 1+
[2024-12-02 13:06] LABS: Alanine Aminotransferase 53 U/L (7-52); Albumin Globulin Ratio 1.2 (0.9-2); Alkaline Phosphatase 193 U/L (34-104); Anion Gap 7 (3-11); Bilirubin,Total 0.8 mg/dl (0.2-1.0); Blood Urea Nitrogen 7 mg/dl (6-23); Calcium 8.4 mg/dl (8.6-10.3); Carbon Dioxide 27 mmol/L (21-32); Chloride 105 mmol/L (98-107); Creatine Kinase 177 U/L (26-192); Globulin 2.6 gm/dl (2.5-4.0); Glucose 89 mg/dl (70-99(Fasting)); INR 1.1 (0.9-1.1); Magnesium 2.1 mg/dl (1.7-2.4); Potassium 3.5 mmol/L (3.5-5.1); Prothrombin Time 11.4 Seconds (9.0-12.0); Sodium 139 mmol/L (136-145); Total Protein 5.7 gm/dl (6.0-8.3)
--- NOTE | 2024-12-02 13:14 | History & Physical Report ---
Date of Service December 02, 2024 Assessment & Plan (1) Sepsis: (2) Bilateral pneumonia: (3) Left leg weakness: (4) Malignant neoplasm of breast metastatic to bone: (5) Metastasis to brain: (6) Peripheral neuropathy: (7) Bilateral leg weakness: (8) Fall: (9) Metastatic neoplasm: (10) Leukocytosis: (11) Elevated troponin: Plan #Sepsis #Bilateral Pneumonia #Weakness of bilateral LE #Fall, #Metastatic Breast Ca #LFT elevation #Troponin elevation Sepsis in setting of immunocompromised patient w/ metastatic breast ca (liver, lung, bone) on chemotherapy (carboplatin, gemcitabine) with last transfusion 3 days ago with suspected pneumonia vs other as source. WBC 40k but did also get Neupogen, procal 0.18. Was tachycardic to low 100s but improved w/ IVF and no hypoxia noted. Recent blood transfusion but stable renal function Cr 0.62, no rash to suggest blood transfusion but will monitor. 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 Xray R femur without acute fracture. CT head however noting possible small focal hemorrhage (patient reporting brain mets) and did take ibuprofen 400mg yesterday for L leg/hip pain but denies hx DVT/PE and no increased leg edema since being off prednisone and no hypoxia but is at risk for PE w/ malignancy however w/ CT head finding defer on AC at this time. Did get Neupogen w/ PRBC yesterday and suspect also contributing to leukocytosis on admission and will trend/monitor Admit to telemetry Continue Cefepime - allergy listed to PCN and will need to monitor to change to Levaquin/Zosyn for gram negative coverage if reaction Check MRSA nares, continue doxy otherwise but if + need to add Vancomycin Follow blood cultures as drawn in ER Pulmonary toilet with incentive spirometry, flutter valve. Duonebs/O2 if needed Tylenol as needed for fever, antiemetics as needed MRI brain w/w/o for further eval CT head finding, also checking CT angio given concerns prior for thrombus but felt tumor in f/u review Oncology consulted for assistance/recommendations Fall precautions Trend troponin but suspect minimal elevation 2nd to recent chemo/infection above. ECHO for completeness Avoiding chemoproph for now, SCDs ordered Monitor LFTs on repeat but known liver lesions on prior and appear improved from labs 11/30. Avoid hepatoxins PT/OT consults placed to see about rehab prior to dc Monitor labs/exam in AM DVT proph: SCDs as above Dispo: admit to medical with telemetry, abx as outlined and follow cultures. Oncology consulted/discussed with Dr Abbasi. Elaine inpatient at least 24-48hrs pending course updated at bedside in ER. Full code History of Present Illness Chief Complaint: bilateral leg weakness, fall, recent chemo Primary Care Provider: Ann Mayes MD 63yo female with hx breast cancer presenting for bilateral leg weakness and multiple falls (5) since yesterday, feeling very weak since her blood transfusion. Patient evaluated in A10, in room. Reports they went for chemotherapy yesterday but that her hemoglobin was low and they gave her a unit of blood as well as a "shot" for cause for white count elevation. Reports she received chemotherapy but unsure what the regimen was but that she did not get "cisplat" due to low hemoglobin. reports she did get transfusion for hgb 7 in the past and "felt like a new woman" but did not get chemotherapy with that transfusion and suspect weakness ongoing from chemotherapy but also with pneumonia on imaging. Slight chills at home, no fever here. Port looks good, reports received 2 rounds of chemo and due for third this past week which was received and plans for restaging in follow up with Dr Abbasi. Discussed I messaged her primary oncologist for discussion and review of chemotherapy -- reports received carboplatin, gemcitabine during treatment and will place consult to be seen. She does have leg weakness, known lesions to L3-4 but also R femur. Reports having increased weakness on the left, took ibuprofen ~400mg yesterday. Denies headache but discussed CT head finding, concerns small hemorrhage. Will plan for MRI and CT angio for further evaluation, defer anticoagulation at this time. No hx DVT/PE. No longer on steroids, improvement in generalized edema/puffiness to face reported. Has been working w/ outpatient PT through [facility] but not having success and will consult PT/OT to see about short term rehab vs other. Discussed will defer on anticoagulation at this time. Full code ER Course: WBC 40.6k, hgb 10.6, LFT elevation similar to prior. UA w/ trace leuk esterase, no bacteria. Stable renal function CXR w/ bilateral perihilar pneumonia and pulmonary vascular congestion CT head w/ "new approx 4mm R posterior convexity frontal hyperdensity appears similar to other cortical calcifications which generally reflect previous infection. Small focal hemorrhage should be considered given short-term interval change"., rec short term follow up" Provided Cefepime IV, 1L NSS bolus Allergies Allergy/AdvReac Type Severity Reaction Status Date / Time erythromycin base Allergy Severe Facial Verified 12/02/24 13:06 swelling Penicillins Allergy Severe Rash Verified 12/02/24 13:06 Home Medications Medication Instructions Recorded Confirmed Type prochlorperazine maleate 10 mg 10 mg PO Q6H PRN Nausea And 10/18/24 12/02/24 History tablet (Compazine) Vomiting famotidine 20 mg tablet 20 mg PO DAILY PRN gerd 11/01/24 12/02/24 History sennosides 8.6 mg tablet (Senokot) 8.6 mg PO BID PRN contipation 11/01/24 12/02/24 History cyanocobalamin (vitamin B-12) 500 500 mcg PO BID 11/06/24 12/02/24 History mcg tablet (Vitamin B-12) ondansetron 8 mg disintegrating 8 mg PO Q8H PRN Nausea And Vomiting 12/02/24 12/02/24 History tablet Past Med/Surg History Problem List Left leg weakness (Acute) Elevated troponin (Acute) Leukocytosis (Acute) Bilateral pneumonia (Acute) Sepsis (Acute) Fall Bilateral leg weakness Periorbital edema of both eyes LAD (lymphadenopathy), mediastinal Metastasis to brain Facial mass (Acute) Double vision (Acute) Lung mass (Acute) Cerebral venous sinus thrombosis, acute (Acute) Metastatic neoplasm Proptosis Ptosis Osteopenia GERD (gastroesophageal reflux disease) mild hiatal hernia Lymphedema Peripheral neuropathy Foot drop BRCA gene mutation negative Medical History Malignant neoplasm of lower-outer quadrant of left breast of female, estrogen receptor negative FNA L axillary lump 06/24/18- s/p chemo; s/p left breast partial mastectomy and left SN excision 01/2019; s/p XRT 06/2019 Burning with urination started 11/12/24, denies fever or any other symptoms- patient instructed by [facility] nursing to call surgeon and PCP office to discuss further management Malignant neoplasm of breast metastatic to bone 09/2024 with metastasis to bone, brain, lung Limb alert care status left arm Nausea and vomiting Ptosis - steadily improved per 11/06/24 oncology records Proptosis Left eye, due to tumor Cerebral venous sinus thrombosis, acute Per discharge summary 09/25/24- after further review- feel that occlusion is not a thrombus but more likely tumor Lung mass Facial mass Lesion of right femur Had 5 XRT treatments, last was on 10/31/24 Nerve damage Residual balance issues Peripheral neuropathy Lymphadenopathy, mediastinal Double vision Tumor pushing on left eye Metastasis to brain Taking memantine as precautionary- currently tapering off was on daily dexamethasone (currently tapering off ) recently completed SBRT radiation to the brain Periorbital edema of both eyes L > R- states tumor is pushing her left eye outward Osteopenia GERD (gastroesophageal reflux disease) mild hiatal hernia Status post chemotherapy Neoadjuvant chemo 07/2018-12/2018 Surgical History H/O insertion of central venous access port (11/15/24) Insertion of Left Internal Jugular Access Port with Fluoroscopy(Left) - Lambert Samaniego, DO, FACS History of lumbar puncture (02/2019) H/O insertion of central venous access port (2018) right side/removed History of removal of Port-a-Cath (2019) 2019 Hx of lymph node excision (01/25/19) 13 lymph nodes, left arm pit Hx of tonsillectomy History of bunionectomy (1992) right foot, as well as bone spur removal Family History Mother No problems noted. Father , 83yo Colorectal cancer Brother No problems noted. Brother No problems noted. 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: No Beliefs That Will Affect Care: None marital status: Current Living Situation: Spouse Current Living Situation Comment: home with current occupational status: retired and disabled 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 [employer] How many Children do You have: 0 Other Information That Helps Us Care for You: No Feels Safe at Home: Yes Safety Concerns: Feels Safe At This Time Childhood Exposure to Second-Hand Smoke: Yes Diet: regular caffeine: Yes (2 cups coffee/day) during the past year weight has: remained stable Dental Care, Regularly: Yes Physical Activity Frequency: Daily Physical Activity Frequency Comment: Daily housework and cleaning Seatbelt Use: always Sunscreen Use: Yes Gender Identity: Female Assistive Devices: Glasses Review of Systems Review of Systems: All systems reviewed & are unremarkable except as noted in HPI & below Physical Exam Physical Exam: General: 63yo female laying in bed, in room, fatigued appearing Head: puffiness/redness to eyes (not new), pupil equal in size, mmm, trachea midline Chest: port to right chest c/d/i, no erythema/drainage/tenderness Resp: diminished in the bases, faint bilateral crackles, no wheezing, on room air, occ cough CV: regular, no significant m/r/g, no pitting edema, pulses present GI: +BS, soft/no overt tenderness/guarding/rebound MSK/Neuro: dorsiflexion/plantar flexion intact bilaterally in bed but slightly diminished dorsiflexion on left compared to right, answering questions appropriately, not confused/no slurred speech/facial droop Psych: AOx3, cooperative but fatigued Results & Data Results & Data Vital Signs (Past 12 Hours) Vital Signs Temp Pulse Resp BP Pulse Ox O2 Del Method 12/02/24 12:07 94 H 12/02/24 11:16 37.1 C 105 H 20 100/67 93 Room Air Laboratory Results 12/02/24 12/02/24 12/02/24 Range/Units 13:46 13:00 12:26 WBC 40.67 H* (4.8-10.8) K/ul RBC 3.42 L (4.20-5.40) M/uL Hgb 10.2 L (12.0-16.0) g/dl Hct 30.6 L (37.0-47.0) % MCV 89.5 (80.0-100.0) fL MCH 29.8 (25.0-34.0) pg MCHC 33.3 (32.0-36.0) g/dL RDW Std Deviation 62.1 H (36.4-46.3) fL RDW Coeff of Melissa 21.7 H (11.5-14.5) % Plt Count 188 (130-400) K/uL MPV 9.4 (9.4-12.4) fL Immature Gran % (Auto) 5.0 % Neut % (Auto) 90.5 % Lymph % (Auto) 1.4 % Ellsworth % (Auto) 2.8 % Eos % (Auto) 0.0 % Baso % (Auto) 0.3 % Neut # (Auto) 36.79 H (1.40-6.50) K/uL Lymph # (Auto) 0.57 L (1.20-3.40) K/uL Ellsworth # (Auto) 1.13 H (0.11-0.59) K/uL Eos # (Auto) 0.01 (0.00-0.50) K/uL Baso # (Auto) 0.13 (0.00-0.20) K/uL Immature Gran # (Auto) 2.04 H (0.01-0.20) K/uL Absolute Nucleated RBC 0.06 (0.00-0.12) K/uL Nucleated RBC % (auto) 0.1 % Toxic Vacuolation 1+ Dohle Bodies 1+ Polychromasia 1+ Anisocytosis Present PT 11.4 (9.0-12.0) Seconds INR 1.1 (0.9-1.1) Sodium 139 (136-145) mmol/L Potassium 3.5 (3.5-5.1) mmol/L Chloride 105 (98-107) mmol/L Carbon Dioxide 27 (21-32) mmol/L Anion Gap 7 (3-11) BUN 7 (6-23) mg/dl Creatinine 0.62 (0.6-1.2) mg/dl Est Cr Clr Drug Dosing Not Reportable eGFR 99.38 BUN/Creatinine Ratio 11.3 (10-20) Glucose 89 (70-99(Fasting)) mg/dl Lactate 1.4 (0.4-2.0) mmol/L Calcium 8.4 L (8.6-10.3) mg/dl Magnesium 2.1 (1.7-2.4) mg/dl Total Bilirubin 0.8 (0.2-1.0) mg/dl AST 40 H (13-39) U/L ALT 53 H (7-52) U/L Alkaline Phosphatase 193 H (34-104) U/L Total Creatine Kinase 177 (26-192) U/L Troponin I High Sens 27.8 H (0-14) pg/ml Total Protein 5.7 L (6.0-8.3) gm/dl Albumin 3.1 L (3.4-5.0) gm/dl Globulin 2.6 (2.5-4.0) gm/dl Albumin/Globulin Ratio 1.2 (0.9-2) Procalcitonin 0.18 (0-0.5) ng/ml TSH 2.098 (0.300-4.500) uIu/ml Urine Color Yellow Urine Appearance Clear (Clear) Urine pH 7.0 (4.5-7.5) Ur Specific Shelby 1.006 (1.000-1.030) Urine Protein Negative (Negative) Urine Glucose (UA) Negative (Negative) Urine Ketones Negative (Negative) Urine Blood Negative (Negative) Urine Nitrite Negative (Negative) Urine Bilirubin Negative (Negative) Urine Urobilinogen Negative (Negative) Ur Leukocyte Esterase 1+ H (Negative) Urine WBC (Auto) 0-5 (0-5) /hpf Urine RBC (Auto) 0-2 (0-2) /hpf U Hyaline Cast (Auto) 0-2 (0-2) /lpf U Epithel Cells (Auto) 0-2 (0-2) /hpf Urine Bacteria (Auto) None Seen (None Seen) Urine Comment Nasal Screen MRSA (PCR) Pending Diagnostic Findings Chest X-Ray 12/02/24 11:44 EXAM: Radiograph of the Chest 1 View INDICATION: Pain TECHNIQUE: Frontal view of the chest. COMPARISON: 11/15/2024 FINDINGS: Lungs and pleural spaces: Increased conspicuity of bilateral perihilar infiltrates and generalized interstitial thickening. No pleural effusion or pneumothorax. Heart: Shape and configuration within normal limits allowing for technique. Mediastinum: Normal contour. Bones/joints: No fracture, erosion or dislocation. Soft tissues: No abnormality noted. No radiopaque foreign body noted. Tubes, lines and devices: Left internal jugular port catheter tip terminates in the distal SVC. Upper abdomen: No abnormality noted. IMPRESSION: 1. Worsening bilateral perihilar pneumonia and pulmonary vascular congestion. 2. Lines and tubes as above. ACT 112: N/A Electronically signed by Candace Lam 12-02-2024 12:29 PM Femur X-Ray 12/02/24 11:59 EXAM: Radiographs of the Left Femur 2 Views INDICATION: Pain TECHNIQUE: Frontal and lateral views of the left femur. COMPARISON: No relevant prior studies available. FINDINGS: Bones/joints: No fracture, erosion or dislocation. Soft tissues: No abnormality noted. No radiopaque foreign body noted. IMPRESSION: No abnormality noted. ACT 112: N/A Electronically signed by Candace Lam 12-02-2024 12:[address] 12/02/24 11:59 EXAM: CT Head Without Intravenous Contrast INDICATION: Left lower extremity weakness. TECHNIQUE: Axial computed tomography images of the head/brain without intravenous contrast. Sagittal and/or coronal reformats are provided. Sagittal and coronal reformatted images were created and reviewed. This CT exam was performed using one or more of the following dose reduction techniques: automated exposure control, adjustment of the mA and/or kV according to patient size, and/or use of iterative reconstruction technique. COMPARISON: 09/21/2024 FINDINGS: Limitations: None. Brain and extra-axial spaces: There is age appropriate cortical atrophy and chronic ischemic periventricular white matter hypodensity. No acute infarct, hemorrhage or mass noted. Stable scattered parenchymal calcifications consistent with previous infection. New 4 mm right convexity hyperdensity. Other cortical calcifications are unchanged allowing for slice selection. Bones/joints: No acute changes. Soft tissues: No significant abnormality noted. Vasculature: No acute abnormality noted. Sinuses: There is no almost complete opacification of the left maxillary sinus. There is stable severe opacification of the ethmoid and frontal sinuses. Mastoid air cells: No mastoid effusion. Orbits: No significant abnormality noted. IMPRESSION: 1. Cerebral atrophy. 2. There is a new approximate 4 mm right posterior convexity frontal hyperdensity which appears similar to other cortical calcifications which generally reflect previous infection. Small focal hemorrhage should be considered given the short-term interval change. Recommend short-term follow-up. No associated edema. ACT 112: N/A Electronically signed by Candace Lam 12-02-2024 12:57 PM Supervising Physician Co-Signing Physician Notes Attending addendum: I have physically seen this patient, have supervised the [facility]'s activities, and agree with the H&P unless as otherwise noted. Assessment and Plan: The patient is a 63-year-old female with history of breast cancer with metastasis to brain, lung mass, cerebral venous sinus thrombosis, GERD, peripheral neuropathy and BRCA gene mutation negative. She presents to the emergency department with complaint of bilateral leg weakness, recent falls, and presently on chemo. Sepsis/immunocompromised patient on chemotherapy/status post transfusion 3 days ago/bilateral pneumonia, right greater than left- Continue cefepime 2 g IV every 8 hours begun in the ED MRSA swab ordered and pending, if positive, will add vancomycin IV Follow blood cultures and sensitivity Follow sputum culture and sensitivity Leukocytosis of 40,000 likely secondary to recent use of Neupogen Neurologic assessment- CT scan of head noted for possible small focal hemorrhage. With patient's history of ibuprofen recently being taken the day before for left leg and hip pain. MRI brain was ordered along with MRA of head. MRI brain initially was concerning for new acute punctate infarcts, however, consultation with [facility] felt that these areas are more likely metastases, and no transfer to [facility] was needed. MRI of the head was negative Plan is to repeat imaging 24 hours after initial imaging and reconnect with [facility] to see if any change in plan would be indicated. Consults to neurology and hematology oncology have been ordered Radiation oncology to be considered PG Care Time/CCT Total # of Minutes Spent Total Time Spent with Patient: Total time spent is greater than 50% in coordination of care (as documented) at patient's floor/unit and/or counseling patient: Coding Level of Care Code 74932 INT INP/OBS CARE 3/75MIN Diagnoses Sepsis A41.9 Bilateral pneumonia J18.9 Left leg weakness R29.898 Malignant neoplasm of breast metastatic to bone C50.919; C79.51 Metastasis to brain C79.31 Peripheral polyneuropathy G62.9 Peripheral neuropathy type: polyneuropathy, unspecified Bilateral leg weakness R29.898 Fall W19.XXXA Metastatic neoplasm C79.9 Leukocytosis D72.829 Elevated troponin R79.89 (6) Peripheral neuropathy Peripheral neuropathy type: polyneuropathy, unspecified Qualified Code(s): G62.9 - Polyneuropathy, unspecified
[2024-12-02 13:19] LABS: Appearance Urine Clear (Clear); Bacteria Urine Automated None Seen (None Seen); Cast Urine Automated 0-2 /lpf (0-2); Epithelial Cell Urine Auto 0-2 /hpf (0-2); Glucose Urine UA Negative (Negative); RBC Urine Automated 0-2 /hpf (0-2); WBC Urine Automated 0-5 /hpf (0-5)
[2024-12-02 13:22] LABS: Thyroid Stimulating Hormone 2.098 uIu/ml (0.300-4.500)
[2024-12-02] MEDS: SODIUM CHLORIDE 0.9% 2,000 ML IV ONE (13:43)
[2024-12-02] MEDS: GADOBUTROL 30ML VIAL IV ONE (14:48)
--- NOTE | 2024-12-02 15:26 | Magnetic Resonance Report ---
Head MRA without contrast History: Weakness Comparison: None Technique: Using 3D [id number] image acquisition technique, MRA of the major arteries at the base of the brain was obtained without IV contrast. 3-dimensional reconstructions of the head MRA were created. Findings: There is no evidence for intracerebral vascular stenoses, occlusions, aneurysms, or vascular malformations. The surrounding brain parenchyma appears within normal limits. Calculation of carotid stenosis is based on comparison of residual lumen to measurements of distal internal carotid diameter as the denominator for stenosis measurement based on the [place] Symptomatic Carotid Endarterectomy Trial (NASCET) methodology. Impression: Normal brain MRA Electronically signed by Asif Nath 12-02-2024 3:25 PM
--- NOTE | 2024-12-02 15:37 | Magnetic Resonance Report ---
MRI of the brain performed with and without IV contrast History: Weakness. Breast cancer Comparison: September 21, 2024 Technique: Multiplanar T1 weighted, axial T2/FLAIR, and susceptibility images were obtained without intravenous contrast. Following intravenous gadolinium based contrast administration, axial T2 weighted, diffusion, and T1-weighted images were obtained. Findings: The diffuse increased dural thickening and enhancement, primarily about the frontotemporal regions, greater on the left compared to the right, is overall similar compared to the prior on September 21, 2024. A small enhancing lesion in the left frontal lobe, series 10 image 110 is seen, measuring 4 mm, previously 5 mm, and a small lesion in the right cerebellum on image 30 measures 3 mm, previously 4 mm. A thin rim-enhancing hide right frontal lobe lesion on image 130, measures 5.5 mm, previously 8 mm. Some additional prior small intraparenchymal rim-enhancing lesions that were seen in the left cerebral hemisphere are no longer definitely seen. There continues to be complete opacification of the ethmoid air cells, and frontal sinuses. The frontal sinuses demonstrate diffuse rim enhancement. On the DWI images: -There is a new small focus of acute infarct measuring 8 mm in diameter in the high left frontal centrum semiovale on image 16. - There are 2 punctate foci of acute infarct in the high right centrum semiovale on image 16. - Possible punctate foci of acute infarct in the left temporoparietal white matter on image 12, in the left temporal occipital white matter on image 10. Impression: 1. There are few scattered small foci of acute infarct, the largest in the high left frontal centrum semiovale measuring 8 mm. 2. Interval decrease in intraparenchymal metastatic disease from September 2024. 3. Continued pachymeningeal metastatic disease, as well as suspicion of tumor extension into the paranasal sinuses, otherwise similar to prior. "ACT 112: Positive. There are findings on this exam that require communication between the performing entity and the patient following Patient Test Result Information Act ([place] ACT 112) guidelines." Electronically signed by Asif Nath 12-02-2024 3:37 PM
[2024-12-02] MEDS ORDERED: PROCHLORPERAZINE MALEATE 10 MG TAB PO PRN (16:42)
[2024-12-02] MEDS ORDERED: ACETAMINOPHEN 325 MG TAB PO PRN (16:42)
[2024-12-02] MEDS ORDERED: ALBUT/IPRATROP 3MG/0.5MG NEB 3 ML VIAL NEB PRN (16:42)
[2024-12-02] MEDS ORDERED: ONDANSETRON 8MG OD TAB PO PRN (16:42)
[2024-12-02] MEDS: CEFEPIME 2,000 MG/20 ML IV PUSH IV ONE (16:43)
--- NOTE | 2024-12-02 16:46 | Communication Note ---
Date of Service: December 02, [address] w/ concerns small focal hemorrhage to be considered w/ short term-interval change. Obtained MRI brain w/w/o and angiography which noted few scattered small foci of acute infarct, largest in L frontal centrum semiovale measuring 8mm. Suspicion of tumor extension into paranasal sinuses similar to prior, interval decrease in intraparecnhymal metastatic disease from September 2024. Neurology consulted, Dr Blackman, rec against antiplatelet at this time but rec to transfer to ICU for closer monitoring and repeat CT head noncon in 8 hrs and touch base w/ Neurosurgeon. Discussed w/ neurosurgeon and given no intervention from their standpoint, call out to stroke neurology and planning for tele- stroke. Updated patient and , agreeable to transfer if needed. Further orders/dispo pending neuro review imaging/discussion. Discussed with Dr Bettencourt, reviewed imaging and prior imaging and believes but cannot confirm findings on MRI brain appear c/w metastatic disease. Rec no need for ICU but rather tele monitoring/checking ECHO and chest CT non-contrast in 24 hours which has been ordered. Updated patient/ with Dr Yancey at bedside this evening. Will consult rad/onc to consider brain XRT
[2024-12-02] MEDS: CEFEPIME 2000MG 2,000 MG/20 ML SYR IV STA (17:04)
[2024-12-02 17:05] LABS: Lipase 23 U/L (11-82)
[2024-12-02] MEDS: DOXYCYCLINE HYCLATE 100 MG in DEXTROSE 5% MINI-B 100 ML IV SCH (17:17)
[2024-12-02] MEDS: CEFEPIME 2000MG 2,000 MG/20 ML SYR IV SCH (17:17)
[2024-12-02] MEDS: SENNA 8.6 MG TAB PO SCH (20:37)
[2024-12-02] MEDS: CYANOCOBALAMIN (B-12) 500 MCG TABLET PO SCH (20:37)
[2024-12-03] MEDS ORDERED: ONDANSETRON 4 MG OD TAB PO PRN (05:25)
[2024-12-03 07:01] LABS: Hematocrit (blood only) 29.8 % (37.0-47.0); Hemoglobin 9.6 g/dl (12.0-16.0); Mean Corpuscular Hemoglobin 29.7 pg (25.0-34.0); Mean Corpuscular Volume 92.3 fL (80.0-100.0); Platelet Count 156 K/uL (130-400); RDW Standard Deviation 65.7 fL (36.4-46.3); Red Blood Count 3.23 M/uL (4.20-5.40)
[2024-12-03 07:11] LABS: White Blood Count 47.41 K/ul (4.8-10.8)
[2024-12-03 07:14] LABS: Alanine Aminotransferase 38.0 U/L (7-52); Albumin Globulin Ratio 1.5 (0.9-2); Alkaline Phosphatase 221.0 U/L (34-104); Anion Gap 8.0 (3-11); Bilirubin,Total 0.9 mg/dl (0.2-1.0); Blood Urea Nitrogen 6.0 mg/dl (6-23); Calcium 8.3 mg/dl (8.6-10.3); Carbon Dioxide 25.0 mmol/L (21-32); Chloride 106.0 mmol/L (98-107); Creatinine Clr Calc Pharmacy 96.7 ml/min; Globulin 2.0 gm/dl (2.5-4.0); Glucose 76.0 mg/dl (70-99(Fasting)); Magnesium 2.2 mg/dl (1.7-2.4); Potassium 3.7 mmol/L (3.5-5.1); Sodium 139.0 mmol/L (136-145); Total Protein 5.0 gm/dl (6.0-8.3)
[2024-12-03 07:47] LABS: ALC (manual) 0.95 K/uL (1.2-3.4); ANC (manual) 43.62 K/uL (1.4-6.5); Dohle Bodies 1+; Polychromasia 1+; Tear Drop Cells 1+; Toxic Vacuolation 1+
--- NOTE | 2024-12-03 07:50 | Oncology Consultation ---
Date of Consultation December 03, 2024 Assessment & Plan (1) Malignant neoplasm of lower-outer quadrant of left breast of female, estrogen receptor negative: (2) Metastasis to brain: (3) Left leg weakness: (4) Bilateral pneumonia: Plan - Unclear at this time if brain MRI findings are secondary to CVA versus metastatic disease. Chest x-ray concerning for pneumonia. Recommend obtaining CT chest, abdomen and pelvis Inpatient for restaging purposes as well as to further evaluate x-ray findings concerning for pneumonia as this could also represent Metastatic disease. Could also consider obtaining bone scan given complaints of left lower extremity weakness with unremarkable x-raythis can be performed inpatient/outpatient -Suspect that generalized weakness is likely multifactorial due to intensive chemotherapy, anemia, pneumonia.She would likely benefit from short-term rehab Thank you for this consult. Please feel free to call if you have any further questions. Will continue to follow while she is in the hospital. History of Present Illness Reason for Consultation: Metastatic breast cancer Attending Physician: Hakeem Puente MD History of Present Illness 63-year-old female with history of triple negative metastatic breast cancer for which she is s/p palliative brain radiation and palliative radiation therapy to the right femur, currently on chemotherapy with carboplatin/gemcitabine started on 10/12/2024. She received cycle 3, day 8 of treatment on 11/30/2024-she received single agent carboplatin with G-CSF and gemcitabine was held due to abnormal LFTs. She presented to the ER with generalized weakness. Labs revealed leukocytosis. Chest x-ray was suggestive of pneumonia. CT head revealed new approximate 4 mm right posterior convexity frontal hyperdensity concerning for small focal hemorrhage. MRI brain on 12/02/2024 showed few scattered small foci of acute infarct, largest in the high left frontal centrum semiovale measuring 8 mm, interval decrease in intraparenchymal metastatic disease from September 2024, continued pachymeningeal metastatic disease as well as suspicion of tumor extension into paranasal sinuses, otherwise similar to prior.She is scheduled for repeat CT head today.She complains of generalized weakness, pain involving her left femur. Weakness did not improve despite 1 unit PRBC transfusion on 12/01/2024. Of note, x-ray of the left femur obtained on 12/02/2024 was unremarkable. Allergies Allergy/AdvReac Type Severity Reaction Status Date / Time erythromycin base Allergy Severe Facial Verified 12/02/24 13:06 swelling Penicillins Allergy Severe Rash Verified 12/02/24 13:06 Home Medications Medication Instructions Recorded Confirmed Type prochlorperazine maleate 10 mg 10 mg PO Q6H PRN Nausea And 10/18/24 12/02/24 History tablet (Compazine) Vomiting famotidine 20 mg tablet 20 mg PO DAILY PRN gerd 11/01/24 12/02/24 History sennosides 8.6 mg tablet (Senokot) 8.6 mg PO BID PRN contipation 11/01/2412/02 History cyanocobalamin (vitamin B-12) 500 500 mcg PO BID 11/06/24 12/02/24 History mcg tablet (Vitamin B-12) ondansetron 8 mg disintegrating 8 mg PO Q8H PRN Nausea And Vomiting 12/02/24 0 12/02/24 History tablet Patient History Medical History Malignant neoplasm of lower-outer quadrant of left breast of female, estrogen receptor negative FNA L axillary lump 06/24/18- s/p chemo; s/p left breast partial mastectomy and left SN excision 01/2019; s/p XRT 06/2019 Burning with urination started 11/12/24, denies fever or any other symptoms- patient instructed by [facility] nursing to call surgeon and PCP office to discuss further management Malignant neoplasm of breast metastatic to bone 09/2024 with metastasis to bone, brain, lung Limb alert care status left arm Nausea and vomiting Ptosis - steadily improved per 11/06/24 oncology records Proptosis Left eye, due to tumor Cerebral venous sinus thrombosis, acute Per discharge summary 09/25/24- after further review- feel that occlusion is not a thrombus but more likely tumor Lung mass Facial mass Lesion of right femur Had 5 XRT treatments, last was on 10/31/24 Nerve damage Residual balance issues Peripheral neuropathy Lymphadenopathy, mediastinal Double vision Tumor pushing on left eye Metastasis to brain Taking memantine as precautionary- currently tapering off was on daily dexamethasone (currently tapering off ) recently completed SBRT radiation to the brain Periorbital edema of both eyes L > R- states tumor is pushing her left eye outward Osteopenia GERD (gastroesophageal reflux disease) mild hiatal hernia Status post chemotherapy Neoadjuvant chemo 07/2018-12/2018 Surgical History H/O insertion of central venous access port (11/15/24) Insertion of Left Internal Jugular Access Port with Fluoroscopy(Left) - Lambert Samaniego DO, WILDA History of lumbar puncture (02/2019) H/O insertion of central venous access port (2018) right side/removed History of removal of Port-a-Cath (2019) 2019 Hx of lymph node excision (01/25/19) 13 lymph nodes, left arm pit Hx of tonsillectomy History of bunionectomy (1992) right foot, as well as bone spur removal Family History Mother No problems noted. Father , 83yo Colorectal cancer Brother No problems noted. Brother No problems noted. Denies family history of Ovarian cancer Prostate cancer Myocardial infarction Breast cancer Social History Smoking Status: Former smoker Tobacco Type: Cigarettes Age Started Using Tobacco: 17; Age Quit Using Tobacco: 27; packs per day: 0.5; Cigarettes Per Day: 1/2 PPD x 10 yrs;; Second Hand Exposure: No; Do You Dip or Chew Tobacco: No; Hx Alcohol Use: Yes Alcohol type: beer Hx Substance Use: No Preferred Language: Uzbek Communication Ability: Effective Visual Impairment: No Limitations Hearing Ability: Normal Site Auditor Required: No Beliefs That Will Affect Care: None marital status: Current Living Situation: Spouse Current Living Situation Comment: home with current occupational status: retired and disabled 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 [employer] How many Children do You have: 0 Other Information That Helps Us Care for You: No Feels Safe at Home: Yes Safety Concerns: Feels Safe At This Time Childhood Exposure to Second-Hand Smoke: Yes Diet: regular caffeine: Yes (2 cups coffee/day) during the past year weight has: remained stable Dental Care, Regularly: Yes Physical Activity Frequency: Daily Physical Activity Frequency Comment: Daily housework and cleaning Seatbelt Use: always Sunscreen Use: Yes Gender Identity: Female Assistive Devices: Glasses Results & Data Vital Signs (Past 12 Hours) Vital Signs Temp Pulse Pulse Resp BP Pulse Ox O2 Del Method 12/03/24 07:28 99 H 12/03/24 07:10 36.9 C 98 H 16 104/68 93 Room Air 12/03/24 02:22 36.8 C 99 H 16 92/59 L 94 Room Air 12/02/24 22:45 36.8 C 99 H 18 104/63 95 Room Air 12/02/24 21:44 95 H
--- NOTE | 2024-12-03 08:22 | Hospitalist Progress Note ---
Date of Service December 03, 2024 Assessment & Plan (1) Sepsis: (2) Bilateral pneumonia: (3) Left leg weakness: (4) Malignant neoplasm of breast metastatic to bone: (5) Metastasis to brain: (6) Peripheral neuropathy: (7) Bilateral leg weakness: (8) Fall: (9) Metastatic neoplasm: (10) Leukocytosis: (11) Elevated troponin: Plan #Sepsis #Bilateral Pneumonia #Weakness of bilateral LE #Fall, #Metastatic Breast Ca #LFT elevation #Troponin elevation Sepsis in setting of immunocompromised patient w/ metastatic breast ca (liver, lung, bone) on chemotherapy (carboplatin, gemcitabine) with last transfusion 3 days ago with suspected pneumonia vs other as source. WBC 40k but did also get Neupogen w/ PRBC this week, procal 0.18. Was tachycardic to low 100s but improved w/ IVF and no hypoxia noted. Recent blood transfusion but stable renal function Cr 0.62, no rash to suggest blood transfusion but will monitor. 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 Xray R femur without acute fracture. CT head however noting possible small focal hemorrhage (patient reporting brain mets) and did take ibuprofen 400mg yesterday for L leg/hip pain but denies hx DVT/PE and no increased leg edema since being off prednisone and no hypoxia but is at risk for PE w/ malignancy however w/ CT head finding defer on AC at this time. Did get Neupogen w/ PRBC yesterday and suspect also contributing to leukocytosis on admission and will trend/monitor Cefepime IV continued. Doxy for atypical. MRSA nares negative. Blood cultures pending WBC elevation remains elevated but afebrile at this time and suspect 2nd to recent chemo MRI brain last evening w/ reports multiple infarcts- see communication note regarding discussion with [facility]. Repeat CT head in for 24hrs for today but suspected more likely 2nd to metastatic disease/malignancy, contusion not ruled out and could also be related to possible radiation she received to her eye. SpO2 93% on RA, defer anticoagulation at this time w/ prior bleeding concerns on imaging. Can re-asses and order baby aspirin following CT head if no bleeding observed Continues on telemetry monitoring - no afib at this time. TSH wnl Continue pulmonary toilet, nebs as needed, supplemental O2 if needed ECHO pending Fall precautions PT/OT consults Oncology consult pending LFTs improved, ALP remains elevated. ?2nd to breast/liver mets. Monitor/avoid hepatotoxins -->CT abdomen/pelvis, chest ordered for restaging. Could have findings prior w/ progressive disease. Appreciate oncology consult/recs/assistance Radiation consult placed to see about XRT Remains inpatient at this time Avoiding chemoproph for now w/ imaging concerns above. SCDs ordered PT/OT consulted and reports being seen but no notes yet in system and will have CM follow up to see about potential for rehab prior to returning home given already getting outpatient therapy through [facility]: continued inpatient stay on antibiotics and monitoring blood cultures. Repeat CT head this afternoon prior to ordering aspirin if no bleeding observed. CT abdomen/pelvis and chest per oncology - see note Admission and Anticipated Discharge Date Admission Date: December 02, 2024 Supervising Physician Co-Signing Physician Notes The patient was not seen by me. The chart was reviewed. Case discussed with JANNA Escamilla. Agree with assessment and plan Subjective Evaluated this morning, resting in bed. Reports feeling improved. No shortness of breath. Saw Dr Abbasi this morning, was present at that time. She is aware of imaging for CT chest/abdomen for restaging purposes, discussed CT head at noon and possible aspirin if no bleeding per discussion w/ neurology from [facility] last evening. No diarrhea or fevers on antibiotics. Reports being seen by therapy, weakness but stable. Will review recs and follow up with case management to see about referrals. Possible dc pending imaging/therapy and possible rehab. Questions/concerns addressed at this time. Physical Exam Physical Exam: General: 63yo female laying in bed resting, NAD, not in room at present but reports he was here earlier when oncology was around Head: puffiness/redness to eyes stable/not new, actually looks better today, mmm, trachea midline Chest: port to right chest c/d/i, no erythema/drainage/tenderness Resp: diminished in the bases, faint bilateral crackles, no wheezing, on room air, occ cough (none today) CV: regular, no significant m/r/g, no pitting edema, pulses present GI: +BS, soft/no overt tenderness/guarding/rebound MSK/Neuro: dorsiflexion/plantar flexion intact bilaterally in bed but slightly diminished dorsiflexion on left compared to right, answering questions appropriately, not confused/no slurred speech/facial droop Psych: AOx3, cooperative but fatigued Results & Data Results & Data Vital Signs (Past 12 Hours) Vital Signs Temp Pulse Pulse Resp BP Pulse Ox O2 Del Method 12/03/24 07:28 99 H 12/03/24 07:10 36.9 C 98 H 16 104/68 93 Room Air 12/03/24 02:22 36.8 C 99 H 16 92/59 L 94 Room Air 12/02/24 22:45 36.8 C 99 H 18 104/63 95 Room Air 12/02/24 21:44 95 H Laboratory Results 12/03/24 12/03/24 12/02/24 Range/Units 06:07 00:23 18:45 WBC 47.41 H* (4.8-10.8) K/ul RBC 3.23 L (4.20-5.40) M/uL Hgb 9.6 L (12.0-16.0) g/dl Hct 29.8 L (37.0-47.0) % MCV 92.3 (80.0-100.0) fL MCH 29.7 (25.0-34.0) pg MCHC 32.2 (32.0-36.0) g/dL RDW Std Deviation 65.7 H (36.4-46.3) fL RDW Coeff of Melissa 22.1 H (11.5-14.5) % Plt Count 156 (130-400) K/uL MPV 9.6 (9.4-12.4) fL Immature Gran % (Auto) % Neut % (Auto) % Lymph % (Auto) % [place] % (Auto) % Eos % (Auto) % Baso % (Auto) % Neut # (Auto) (1.40-6.50) K/uL Lymph # (Auto) (1.20-3.40) K/uL [place] # (Auto) (0.11-0.59) K/uL Eos # (Auto) (0.00-0.50) K/uL Baso # (Auto) (0.00-0.20) K/uL Immature Gran # (Auto) (0.01-0.20) K/uL Absolute Nucleated RBC 0.05 (0.00-0.12) K/uL Nucleated RBC % (auto) 0.1 % Neutrophils % (Manual) 92 % Lymphocytes % (Manual) 2 % Monocytes % (Manual) 4 % Eosinophils % (Manual) 1 % Metamyelocytes % (Man) 1 % Neutrophils # (Manual) 43.62 H (1.40-6.50) K/uL Total Absolute Neuts 43.62 H (1.4-6.5) K/uL Lymphocytes # (Manual) 0.95 L (1.2-3.4) K/uL Total Abs Lymphocytes 0.95 L (1.2-3.4) K/uL Monocytes # (Manual) 1.90 H (0.11-0.59) K/uL Eosinophils # (Manual) 0.47 (0-0.50) K/uL Metamyelocytes # (Man) 0.47 H (0-0) K/uL Toxic Vacuolation 1+ Dohle Bodies 1+ Polychromasia 1+ Anisocytosis Tear Drop Cells 1+ PT (9.0-12.0) Seconds INR (0.9-1.1) Sodium 139 (136-145) mmol/L Potassium 3.7 (3.5-5.1) mmol/L Chloride 106 (98-107) mmol/L Carbon Dioxide 25 (21-32) mmol/L Anion Gap 8 (3-11) BUN 6 (6-23) mg/dl Creatinine 0.55 L (0.6-1.2) mg/dl Est Cr Clr Drug Dosing 96.7 eGFR 102.29 BUN/Creatinine Ratio 10.9 (10-20) Glucose 76 (70-99(Fasting)) mg/dl Lactate (0.4-2.0) mmol/L Calcium 8.3 L (8.6-10.3) mg/dl Magnesium 2.2 (1.7-2.4) mg/dl Total Bilirubin 0.9 (0.2-1.0) mg/dl AST 31 (13-39) U/L ALT 38 (7-52) U/L Alkaline Phosphatase 221 H (34-104) U/L Total Creatine Kinase (26-192) U/L Troponin I High Sens 32.7 H 29.3 H (0-14) pg/ml Total Protein 5.0 L (6.0-8.3) gm/dl Albumin 3.0 L (3.4-5.0) gm/dl Globulin 2.0 L (2.5-4.0) gm/dl Albumin/Globulin Ratio 1.5 (0.9-2) Lipase (11-82) U/L Procalcitonin (0-0.5) ng/ml TSH (0.300-4.500) uIu/ml Urine Color Urine Appearance (Clear) Urine pH (4.5-7.5) Ur Specific [place] (1.000-1.030) Urine Protein (Negative) Urine Glucose (UA) (Negative) Urine Ketones (Negative) Urine Blood (Negative) Urine Nitrite (Negative) Urine Bilirubin (Negative) Urine Urobilinogen (Negative) Ur Leukocyte Esterase (Negative) Urine WBC (Auto) (0-5) /hpf Urine RBC (Auto) (0-2) /hpf U Hyaline Cast (Auto) (0-2) /lpf U Epithel Cells (Auto) (0-2) /hpf Urine Bacteria (Auto) (None Seen) Urine Comment Nasal Screen MRSA (PCR) (Negative) 12/02/24 12/02/24 12/02/24 Range/Units 15:02 13:46 13:00 WBC (4.8-10.8) K/ul RBC (4.20-5.40) M/uL Hgb (12.0-16.0) g/dl Hct (37.0-47.0) % MCV (80.0-100.0) fL MCH (25.0-34.0) pg MCHC (32.0-36.0) g/dL RDW Std Deviation (36.4-46.3) fL RDW Coeff of Melissa (11.5-14.5) % Plt Count (130-400) K/uL MPV (9.4-12.4) fL Immature Gran % (Auto) % Neut % (Auto) % Lymph % (Auto) % [place] % (Auto) % Eos % (Auto) % Baso % (Auto) % Neut # (Auto) (1.40-6.50) K/uL Lymph # (Auto) (1.20-3.40) K/uL [place] # (Auto) (0.11-0.59) K/uL Eos # (Auto) (0.00-0.50) K/uL Baso # (Auto) (0.00-0.20) K/uL Immature Gran # (Auto) (0.01-0.20) K/uL Absolute Nucleated RBC (0.00-0.12) K/uL Nucleated RBC % (auto) % Neutrophils % (Manual) % Lymphocytes % (Manual) % Monocytes % (Manual) % Eosinophils % (Manual) % Metamyelocytes % (Man) % Neutrophils # (Manual) (1.40-6.50) K/uL Total Absolute Neuts (1.4-6.5) K/uL Lymphocytes # (Manual) (1.2-3.4) K/uL Total Abs Lymphocytes (1.2-3.4) K/uL Monocytes # (Manual) (0.11-0.59) K/uL Eosinophils # (Manual) (0-0.50) K/uL Metamyelocytes # (Man) (0-0) K/uL Toxic Vacuolation Dohle Bodies Polychromasia Anisocytosis Tear Drop Cells PT (9.0-12.0) Seconds INR (0.9-1.1) Sodium (136-145) mmol/L Potassium (3.5-5.1) mmol/L Chloride (98-107) mmol/L Carbon Dioxide (21-32) mmol/L Anion Gap (3-11) BUN (6-23) mg/dl Creatinine (0.6-1.2) mg/dl Est Cr Clr Drug Dosing eGFR BUN/Creatinine Ratio (10-20) Glucose (70-99(Fasting)) mg/dl Lactate (0.4-2.0) mmol/L Calcium (8.6-10.3) mg/dl Magnesium (1.7-2.4) mg/dl Total Bilirubin (0.2-1.0) mg/dl AST (13-39) U/L ALT (7-52) U/L Alkaline Phosphatase (34-104) U/L Total Creatine Kinase (26-192) U/L Troponin I High Sens 27.5 H (0-14) pg/ml Total Protein (6.0-8.3) gm/dl Albumin (3.4-5.0) gm/dl Globulin (2.5-4.0) gm/dl Albumin/Globulin Ratio (0.9-2) Lipase (11-82) U/L Procalcitonin (0-0.5) ng/ml TSH (0.300-4.500) uIu/ml Urine Color Yellow Urine Appearance Clear (Clear) Urine pH 7.0 (4.5-7.5) Ur Specific [place] 1.006 (1.000-1.030) Urine Protein Negative (Negative) Urine Glucose (UA) Negative (Negative) Urine Ketones Negative (Negative) Urine Blood Negative (Negative) Urine Nitrite Negative (Negative) Urine Bilirubin Negative (Negative) Urine Urobilinogen Negative (Negative) Ur Leukocyte Esterase 1+ H (Negative) Urine WBC (Auto) 0-5 (0-5) /hpf Urine RBC (Auto) 0-2 (0-2) /hpf U Hyaline Cast (Auto) 0-2 (0-2) /lpf U Epithel Cells (Auto) 0-2 (0-2) /hpf Urine Bacteria (Auto) None Seen (None Seen) Urine Comment Nasal Screen MRSA (PCR) Negative (Negative) 12/02/24 Range/Units 12:26 WBC 40.67 H* (4.8-10.8) K/ul RBC 3.42 L (4.20-5.40) M/uL Hgb 10.2 L (12.0-16.0) g/dl Hct 30.6 L (37.0-47.0) % MCV 89.5 (80.0-100.0) fL MCH 29.8 (25.0-34.0) pg MCHC 33.3 (32.0-36.0) g/dL RDW Std Deviation 62.1 H (36.4-46.3) fL RDW Coeff of Melissa 21.7 H (11.5-14.5) % Plt Count 188 (130-400) K/uL MPV 9.4 (9.4-12.4) fL Immature Gran % (Auto) 5.0 % Neut % (Auto) 90.5 % Lymph % (Auto) 1.4 % [place] % (Auto) 2.8 % Eos % (Auto) 0.0 % Baso % (Auto) 0.3 % Neut # (Auto) 36.79 H (1.40-6.50) K/uL Lymph # (Auto) 0.57 L (1.20-3.40) K/uL [place] # (Auto) 1.13 H (0.11-0.59) K/uL Eos # (Auto) 0.01 (0.00-0.50) K/uL Baso # (Auto) 0.13 (0.00-0.20) K/uL Immature Gran # (Auto) 2.04 H (0.01-0.20) K/uL Absolute Nucleated RBC 0.06 (0.00-0.12) K/uL Nucleated RBC % (auto) 0.1 % Neutrophils % (Manual) % Lymphocytes % (Manual) % Monocytes % (Manual) % Eosinophils % (Manual) % Metamyelocytes % (Man) % Neutrophils # (Manual) (1.40-6.50) K/uL Total Absolute Neuts (1.4-6.5) K/uL Lymphocytes # (Manual) (1.2-3.4) K/uL Total Abs Lymphocytes (1.2-3.4) K/uL Monocytes # (Manual) (0.11-0.59) K/uL Eosinophils # (Manual) (0-0.50) K/uL Metamyelocytes # (Man) (0-0) K/uL Toxic Vacuolation 1+ Dohle Bodies 1+ Polychromasia 1+ Anisocytosis Present Tear Drop Cells PT 11.4 (9.0-12.0) Seconds INR 1.1 (0.9-1.1) Sodium 139 (136-145) mmol/L Potassium 3.5 (3.5-5.1) mmol/L Chloride 105 (98-107) mmol/L Carbon Dioxide 27 (21-32) mmol/L Anion Gap 7 (3-11) BUN 7 (6-23) mg/dl Creatinine 0.62 (0.6-1.2) mg/dl Est Cr Clr Drug Dosing Not Reportable eGFR 99.38 BUN/Creatinine Ratio 11.3 (10-20) Glucose 89 (70-99(Fasting)) mg/dl Lactate 1.4 (0.4-2.0) mmol/L Calcium 8.4 L (8.6-10.3) mg/dl Magnesium 2.1 (1.7-2.4) mg/dl Total Bilirubin 0.8 (0.2-1.0) mg/dl AST 40 H (13-39) U/L ALT 53 H (7-52) U/L Alkaline Phosphatase 193 H (34-104) U/L Total Creatine Kinase 177 (26-192) U/L Troponin I High Sens 27.8 H (0-14) pg/ml Total Protein 5.7 L (6.0-8.3) gm/dl Albumin 3.1 L (3.4-5.0) gm/dl Globulin 2.6 (2.5-4.0) gm/dl Albumin/Globulin Ratio 1.2 (0.9-2) Lipase 23 (11-82) U/L Procalcitonin 0.18 (0-0.5) ng/ml TSH 2.098 (0.300-4.500) uIu/ml Urine Color Urine Appearance (Clear) Urine pH (4.5-7.5) Ur Specific [place] (1.000-1.030) Urine Protein (Negative) Urine Glucose (UA) (Negative) Urine Ketones (Negative) Urine Blood (Negative) Urine Nitrite (Negative) Urine Bilirubin (Negative) Urine Urobilinogen (Negative) Ur Leukocyte Esterase (Negative) Urine WBC (Auto) (0-5) /hpf Urine RBC (Auto) (0-2) /hpf U Hyaline Cast (Auto) (0-2) /lpf U Epithel Cells (Auto) (0-2) /hpf Urine Bacteria (Auto) (None Seen) Urine Comment Nasal Screen MRSA (PCR) (Negative) Diagnostic Findings Chest X-Ray 12/02/24 11:44 EXAM: Radiograph of the Chest 1 View INDICATION: Pain TECHNIQUE: Frontal view of the chest. COMPARISON: 11/15/2024 FINDINGS: Lungs and pleural spaces: Increased conspicuity of bilateral perihilar infiltrates and generalized interstitial thickening. No pleural effusion or pneumothorax. Heart: Shape and configuration within normal limits allowing for technique. Mediastinum: Normal contour. Bones/joints: No fracture, erosion or dislocation. Soft tissues: No abnormality noted. No radiopaque foreign body noted. Tubes, lines and devices: Left internal jugular port catheter tip terminates in the distal SVC. Upper abdomen: No abnormality noted. IMPRESSION: 1. Worsening bilateral perihilar pneumonia and pulmonary vascular congestion. 2. Lines and tubes as above. ACT 112: N/A Electronically signed by Candace Lam 12-02-2024 12:29 PM Femur X-Ray 12/02/24 11:59 EXAM: Radiographs of the Left Femur 2 Views INDICATION: Pain TECHNIQUE: Frontal and lateral views of the left femur. COMPARISON: No relevant prior studies available. FINDINGS: Bones/joints: No fracture, erosion or dislocation. Soft tissues: No abnormality noted. No radiopaque foreign body noted. IMPRESSION: No abnormality noted. ACT 112: N/A Electronically signed by Candace Lam 12-02-2024 12:[address] 12/02/24 11:59 EXAM: CT Head Without Intravenous Contrast INDICATION: Left lower extremity weakness. TECHNIQUE: Axial computed tomography images of the head/brain without intravenous contrast. Sagittal and/or coronal reformats are provided. Sagittal and coronal reformatted images were created and reviewed. This CT exam was performed using one or more of the following dose reduction techniques: automated exposure control, adjustment of the mA and/or kV according to patient size, and/or use of iterative reconstruction technique. COMPARISON: 09/21/2024 FINDINGS: Limitations: None. Brain and extra-axial spaces: There is age appropriate cortical atrophy and chronic ischemic periventricular white matter hypodensity. No acute infarct, hemorrhage or mass noted. Stable scattered parenchymal calcifications consistent with previous infection. New 4 mm right convexity hyperdensity. Other cortical calcifications are unchanged allowing for slice selection. Bones/joints: No acute changes. Soft tissues: No significant abnormality noted. Vasculature: No acute abnormality noted. Sinuses: There is no almost complete opacification of the left maxillary sinus. There is stable severe opacification of the ethmoid and frontal sinuses. Mastoid air cells: No mastoid effusion. Orbits: No significant abnormality noted. IMPRESSION: 1. Cerebral atrophy. 2. There is a new approximate 4 mm right posterior convexity frontal hyperdensity which appears similar to other cortical calcifications which generally reflect previous infection. Small focal hemorrhage should be considered given the short-term interval change. Recommend short-term follow-up. No associated edema. ACT 112: N/A Electronically signed by Candace Lam 12-02-2024 12:57 PM Head MRA 12/02/24 13:50 Head MRA without contrast History: Weakness Comparison: None Technique: Using 3D [id number] image acquisition technique, MRA of the major arteries at the base of the brain was obtained without IV contrast. 3-dimensional reconstructions of the head MRA were created. Findings: There is no evidence for intracerebral vascular stenoses, occlusions, aneurysms, or vascular malformations. The surrounding brain parenchyma appears within normal limits. Calculation of carotid stenosis is based on comparison of residual lumen to measurements of distal internal carotid diameter as the denominator for stenosis measurement based on the [place] Symptomatic Carotid Endarterectomy Trial (NASCET) methodology. Impression: Normal brain MRA Electronically signed by Asif Nath 12-02-2024 3:25 PM Brain MRI 12/02/24 13:52 MRI of the brain performed with and without IV contrast History: Weakness. Breast cancer Comparison: September 21, 2024 Technique: Multiplanar T1 weighted, axial T2/FLAIR, and susceptibility images were obtained without intravenous contrast. Following intravenous gadolinium based contrast administration, axial T2 weighted, diffusion, and T1-weighted images were obtained. Findings: The diffuse increased dural thickening and enhancement, primarily about the frontotemporal regions, greater on the left compared to the right, is overall similar compared to the prior on September 21, 2024. A small enhancing lesion in the left frontal lobe, series 10 image 110 is seen, measuring 4 mm, previously 5 mm, and a small lesion in the right cerebellum on image 30 measures 3 mm, previously 4 mm. A thin rim-enhancing hide right frontal lobe lesion on image 130, measures 5.5 mm, previously 8 mm. Some additional prior small intraparenchymal rim-enhancing lesions that were seen in the left cerebral hemisphere are no longer definitely seen. There continues to be complete opacification of the ethmoid air cells, and frontal sinuses. The frontal sinuses demonstrate diffuse rim enhancement. On the DWI images: -There is a new small focus of acute infarct measuring 8 mm in diameter in the high left frontal centrum semiovale on image 16. - There are 2 punctate foci of acute infarct in the high right centrum semiovale on image 16. - Possible punctate foci of acute infarct in the left temporoparietal white matter on image 12, in the left temporal occipital white matter on image 10. Impression: 1. There are few scattered small foci of acute infarct, the largest in the high left frontal centrum semiovale measuring 8 mm. 2. Interval decrease in intraparenchymal metastatic disease from September 2024. 3. Continued pachymeningeal metastatic disease, as well as suspicion of tumor extension into the paranasal sinuses, otherwise similar to prior. "ACT 112: Positive. There are findings on this exam that require communication between the performing entity and the patient following Patient Test Result Information Act ([place] ACT 112) guidelines." Electronically signed by Asif Nath 12-02-2024 3:37 PM PG Care Time/CCT Total # of Minutes Spent Total Time Spent with Patient: Total time spent is greater than 50% in coordination of care (as documented) at patient's floor/unit and/or counseling patient: Coding Level of Care Code 02734 SUB INP/OBS CARE 3/50MIN Diagnoses Sepsis A41.9 Bilateral pneumonia J18.9 Left leg weakness R29.898 Malignant neoplasm of breast metastatic to bone C50.919; C79.51 Metastasis to brain C79.31 Peripheral polyneuropathy G62.9 Peripheral neuropathy type: polyneuropathy, unspecified Bilateral leg weakness R29.898 Fall W19.XXXA Metastatic neoplasm C79.9 Leukocytosis D72.829 Elevated troponin R79.89 (6) Peripheral neuropathy Peripheral neuropathy type: polyneuropathy, unspecified Qualified Code(s): G62.9 - Polyneuropathy, unspecified
--- NOTE | 2024-12-03 09:06 | Neurology Consultation ---
Date of Consultation December 03, 2024 Assessment & Plan (1) Metastasis to brain: (2) Left leg weakness: History of Present Illness Attending Physician: Hakeem Puente MD History of Present Illness S: pt this morning feeling ok. no new weakness. pt fell few times and due to her leg giving out last few days. mri brain noted for small punctate multiple ischemic stroke along with brain mets that appears stable without bleed. chart reviewed. Admission HPI:Patient is a 63-year-old female presenting with recurrent falls and leg weakness. Patient reports that she was seen for a blood transfusion yesterday. She reports that she has been very weak since getting her blood transfusion and has had 5 total falls between yesterday evening and today. Reports that it seems like her left leg gives out from underneath her. She denies striking her head or loss of consciousness. Denies any chest pain, shortness of breath or lightheadedness prior to the falls. Reports that just seems like her leg gives out. She is currently on chemotherapy for breast cancer. She states her last round of chemo was 3 days ago. She denies any fevers at home. Denies any abdominal pain, nausea or vomiting. Denies any dysuria or hematuria. Denies any cough or shortness of breath. Patient reports that she finished a course of antibiotics about a week ago for acute urinary tract infection. Allergies Allergy/AdvReac Type Severity Reaction Status Date / Time erythromycin base Allergy Severe Facial Verified 12/02/24 13:06 swelling Penicillins Allergy Severe Rash Verified 12/02/24 13:06 Home Medications Medication Instructions Recorded Confirmed Type prochlorperazine maleate 10 mg 10 mg PO Q6H PRN Nausea And 10/18/24 12/02/24 History tablet (Compazine) Vomiting famotidine 20 mg tablet 20 mg PO DAILY PRN gerd 11/01/24 12/02/24 History sennosides 8.6 mg tablet (Senokot) 8.6 mg PO BID PRN contipation 11/01/24 12/02/24 History cyanocobalamin (vitamin B-12) 500 500 mcg PO BID 11/06/24 12/02/24 History mcg tablet (Vitamin B-12) ondansetron 8 mg disintegrating 8 mg PO Q8H PRN Nausea And Vomiting 12/02/24 12/02/24 History tablet Patient History Medical History Malignant neoplasm of lower-outer quadrant of left breast of female, estrogen receptor negative FNA L axillary lump 06/24/18- s/p chemo; s/p left breast partial mastectomy and left SN excision 01/2019; s/p XRT 06/2019 Burning with urination started 11/12/24, denies fever or any other symptoms- patient instructed by 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, brain, lung Limb alert care status left arm Nausea and vomiting Ptosis - steadily improved per 11/06/24 oncology records Proptosis Left eye, due to tumor Cerebral venous sinus thrombosis, acute Per discharge summary 09/25/24- after further review- feel that occlusion is not a thrombus but more likely tumor Lung mass Facial mass Lesion of right femur Had 5 XRT treatments, last was on 10/31/24 Nerve damage Residual balance issues Peripheral neuropathy Lymphadenopathy, mediastinal Double vision Tumor pushing on left eye Metastasis to brain Taking memantine as precautionary- currently tapering off was on daily dexamethasone (currently tapering off ) recently completed SBRT radiation to the brain Periorbital edema of both eyes L > R- states tumor is pushing her left eye outward Osteopenia GERD (gastroesophageal reflux disease) mild hiatal hernia Status post chemotherapy Neoadjuvant chemo 07/2018-12/2018 Surgical History H/O insertion of central venous access port (11/15/24) Insertion of Left Internal Jugular Access Port with Fluoroscopy(Left) - Lambert Samaniego, , FACS History of lumbar puncture (02/2019) H/O insertion of central venous access port (2018) right side/removed History of removal of Port-a-Cath (2019) 2019 Hx of lymph node excision (01/25/19) 13 lymph nodes, left arm pit Hx of tonsillectomy History of bunionectomy (1992) right foot, as well as bone spur removal Family History Mother No problems noted. Father , 83yo Colorectal cancer Brother No problems noted. Brother No problems noted. Denies family history of Ovarian cancer Prostate cancer Myocardial infarction Breast cancer Social History Smoking Status: Former smoker Tobacco Type: Cigarettes Age Started Using Tobacco: 17; Age Quit Using Tobacco: 27; packs per day: 0.5; Cigarettes Per Day: 1/2 PPD x 10 yrs;; Second Hand Exposure: No; Do You Dip or Chew Tobacco: No; Hx Alcohol Use: Yes Alcohol type: beer Hx Substance Use: No Preferred Language: Frisian Communication Ability: Effective Visual Impairment: No Limitations Hearing Ability: Normal Family Counselor Required: No Beliefs That Will Affect Care: None marital status: Current Living Situation: Spouse Current Living Situation Comment: home with current occupational status: retired and disabled 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 [employer] How many Children do You have: 0 Other Information That Helps Us Care for You: No Feels Safe at Home: Yes Safety Concerns: Feels Safe At This Time Childhood Exposure to Second-Hand Smoke: Yes Diet: regular caffeine: Yes (2 cups coffee/day) during the past year weight has: remained stable Dental Care, Regularly: Yes Physical Activity Frequency: Daily Physical Activity Frequency Comment: Daily housework and cleaning Seatbelt Use: always Sunscreen Use: Yes Gender Identity: Female Assistive Devices: Glasses Review of Systems Review of Systems: All systems reviewed & are unremarkable except as noted in Subjective Constitutional: as per Subjective / HPI Eyes: as per Subjective / HPI Ear, Nose, Mouth, Throat: as per Subjective / HPI Respiratory: as per Subjective / HPI Cardiovascular: as per Subjective / HPI Gastrointestinal: as per Subjective / HPI Musculoskeletal: as per Subjective / HPI Integumentary: as per Subjective / HPI Neurologic: as per Subjective / HPI Psychiatric: as per Subjective / HPI Endocrine: as per Subjective / HPI Hematologic / Lymphatic: as per Subjective / HPI Allergy / Immunological: as per Subjective / HPI Exam (Neuro) Physical Exam: HEENT: normocephalic Neuro: Mental: AOx4, fluent speech, normal comprehension, no apraxia, no L/R confusion, no neglect CN: PERRL, Full EOM, symmetric face, midline T/U/P, 5/5 SCM/traps. Motor: No abnormal movements, normal tone and bulk, 5/5 t/o bilaterally upper limbs, 5-/5 b/l hip flexion, LLE 4/5 knee extension, 4+/5 knee flexion. 5/5 dorsiflexion and plantarflexion. RLE: 5-/5 knee extension/flexion and distally t/o. Coord: intact grossly. DTR: 2+ sym b/l Gait:deferred. Impression: 63 yo female with known breast cancer and mets to bone and brain and meninges (with known carcinomatous meningitis) noted for small punctate acute ischemic stroke b/l centrum semiovale in setting of sepsis/pneumonia. Pt's gait issue and weakness likely multifactorial including overall declining from infection, anemia, chemo. Also Carcinomatous meningitis can cause gait disturbance and imbalance, maybe contributing. Recommendations: 1. Standard stroke work up as planned 2. antiplatelet therapy: would recommend starting ASA 81mg po daily for prevention, would not do DAPT given her high risk for bleed. 3. Images: TTE with bubble. recent MRA and CTA head/neck stable and no stenosis. would start also on keppra 500mg po bid given high risk for seizure, based on involvement of leptomeningitis and metastatic disease to brain. 4. Permissive Hypertension for next 24-4 8 hrs. Keep SBP goal range less than 220. Avoid hypotension. Do not stop beta-iva if on it. 6. Long-term SBP goal less than 130. 7. Plenty of hydration including IV flui d if possible (use isotonic solution) next 1-2 days. Avoid hypovolemia and hypotension. 8. Initiate DVT prevention therapy. 9. Avoid hypoglycemia, serum glucose goa l during hospitalization: 140-180. 10. Long-term HgA1c goal less than 7. 11. Start statin if not on it and no abs olute contraindication, long-term LDL goal less than 70. 14. Telemetry monitoring. Consider intermodal owner operator truck driver cardiac monitoring, i.e. MCOT (mobile cardiac outpatient telemetry) or ICM (insertable cardiac care nurse, e.g. LINQ), if never had long-term cardiac monitoring done previously. And if found to have atrial flutter or fibrillation, should consider anticoagulation therapy if no contraindication. 15. Fall precaution 16. Consult physical and occupational th erapy evaluation. Agree with hem/onc that she will likely need intermodal owner operator truck driver rehab. call again if new question. Chart reviewed I have spent more than 50% educating patient about potential diagnosis and neurological evaluation and coordinating care with patient's treatment team. Total time spent (including chart review and coordination of care): 60 min (this includes chart review). Results & Data Vital Signs (Past 12 Hours) Vital Signs Temp Pulse Pulse Resp BP Pulse Ox O2 Del Method 12/03/24 07:28 99 H 12/03/24 07:10 36.9 C 98 H 16 104/68 93 Room Air 12/03/24 02:22 36.8 C 99 H 16 92/59 L 94 Room Air 12/02/24 22:45 36.8 C 99 H 18 104/63 95 Room Air 12/02/24 21:44 95 H PG Care Time/CCT Total # of Minutes Spent Total Time Spent with Patient: Total time spent is greater than 50% in coordination of care (as documented) at patient's floor/unit and/or counseling patient: Coding Level of Care Code 35286 IN/OBS CONSULT LVL 4,60M Diagnoses Metastasis to brain C79.31 Left leg weakness R29.898
[2024-12-03] MEDS: FAMOTIDINE 20 MG TAB PO SCH (09:28)
[2024-12-03] MEDS: OPTIRAY 320 100ml IV ONE (11:45)
--- NOTE | 2024-12-03 12:20 | CT Scan Report ---
EXAM: CT Head Without Intravenous Contrast INDICATION: Follow-up. Metastatic breast cancer. TECHNIQUE: Axial computed tomography images of the head/brain without intravenous contrast. Sagittal and/or coronal reformats are provided. Sagittal and coronal reformatted images were created and reviewed. This CT exam was performed using one or more of the following dose reduction techniques: automated exposure control, adjustment of the mA and/or kV according to patient size, and/or use of iterative reconstruction technique. COMPARISON: 12/02/2024 FINDINGS: Limitations: None. Brain and extra-axial spaces: Stable moderate heterogeneous periventricular hypodensity with focal left centrum semiovale ischemic focus seen on MRI unchanged. Stable small hyperdense focus in the right centrum semiovale. Large scattered parenchymal calcifications noted consistent with previous infection or treatment. No hemorrhage. Bones/joints: No acute changes. Soft tissues: No significant abnormality noted. Vasculature: No acute abnormality noted. Sinuses: Stable sinus disease. Mastoid air cells: No mastoid effusion. Orbits: No significant abnormality noted. IMPRESSION: No acute change. Chronic changes with stable asymmetric hypodensity in the left centrum semiovale corresponding to an area of acute restricted diffusion/ischemia on MRI. ACT 112: N/A Electronically signed by Candace Lam 12-03-2024 12:19 PM
--- NOTE | 2024-12-03 12:33 | CT Scan Report ---
EXAM: CT Chest Abdomen and Pelvis With Intravenous Contrast INDICATION: Breast cancer. TECHNIQUE: Axial computed tomography images of the chest, abdomen and pelvis with intravenous contrast. Sagittal and coronal reformatted images were created and reviewed. This CT exam was performed using one or more of the following dose reduction techniques: automated exposure control, adjustment of the mA and/or kV according to patient size, and/or use of iterative reconstruction technique. CONTRAST: 94ml of Optiray 320 was administered intravenously. COMPARISON: Abdomen/pelvis CT 09/22/2024 FINDINGS: Limitations: None. CHEST: Lungs and pleural spaces: Small pleural effusions now present right greater than left. No pneumothorax. Innumerable metastatic nodules present in all lobes of both lungs. Large confluent and irregular nodules noted in the anterior upper lobes. Entirety of a confluent mass in the left upper lobe measures 5.2 cm transverse by 3.8 cm AP by 4.3 cm long and right upper lobe confluent pastor mass measures 6.6 cm transverse by 2.9 cm AP by 2.8 cm long. No bronchiectasis. Heart: No abnormality noted. Mediastinum: Normal contour. Thyroid: No abnormality noted. ABDOMEN: Liver: There are faint approximate 1 cm solid nodules in the inferior liver not previously present. No ductal dilatation. Gallbladder and bile ducts: No calcified stones or surrounding fluid. No ductal dilation. Pancreas: Homogeneous enhancement. No mass, inflammation or ductal dilation. Spleen: No significant abnormality noted. Adrenals: No significant abnormality noted. Kidneys and ureters: Normal enhancement. No mass, hydronephrosis or visualized stone. Stomach and bowel: Moderate stool and colonic diverticulosis. There is probable mild focal inflammation of the proximal sigmoid colon. No obstruction. PELVIS: Appendix: Well seen and appears normal. Bladder: No filling defects to suggest mass or large stone. No inflammation. Reproductive: No significant abnormality noted. CHEST, ABDOMEN and PELVIS: Intraperitoneal space: No free air. No significant fluid collection. Retroperitoneal space: No abnormality noted. No fluid collection. Bones/joints: Increased bilateral iliac sclerotic metastases. Increased sclerotic metastases of L2. Stable metastatic disease L3 and L4. There is metastatic disease involving the T9 vertebra without compression. Soft tissues: No significant abnormality noted. Vasculature: No abnormality noted. No aortic aneurysm. Lymph nodes: There is extensive multicompartment mediastinal and hilar adenopathy. No abdominal or pelvic adenopathy noted. Tubes, lines and devices: Left jugular central venous port terminates at the cavoatrial junction. IMPRESSION: 1. Worsening osseous metastases. Impression new small bilateral pleural effusions. 2. Extensive metastatic disease to the lungs with confluent metastatic masses in both upper lobes as described. ACT 112: N/A Normal contour. Electronically signed by Candace Lam 12-03-2024 12:32 PM
[2024-12-03] MEDS: ASPIRIN 81 MG ECTAB PO SCH (15:14)
[2024-12-04] MEDS ORDERED: HEPARIN 100 UNIT/ML 5ML FLUSH FLUSH PRN (02:50)
[2024-12-04 06:51] LABS: Anion Gap 9.0 (3-11); Blood Urea Nitrogen 7.0 mg/dl (6-23); Calcium 8.6 mg/dl (8.6-10.3); Carbon Dioxide 27.0 mmol/L (21-32); Chloride 104.0 mmol/L (98-107); Creatinine Clr Calc Pharmacy 87.2 ml/min; Glucose 70.0 mg/dl (70-99(Fasting)); Potassium 3.6 mmol/L (3.5-5.1); Sodium 140.0 mmol/L (136-145)
[2024-12-04 06:55] LABS: Hematocrit (blood only) 29.2 % (37.0-47.0); Hemoglobin 9.5 g/dl (12.0-16.0); Mean Corpuscular Hemoglobin 30.1 pg (25.0-34.0); Mean Corpuscular Volume 92.4 fL (80.0-100.0); Platelet Count 155 K/uL (130-400); RDW Standard Deviation 67.7 fL (36.4-46.3); Red Blood Count 3.16 M/uL (4.20-5.40); White Blood Count 50.02 K/ul (4.8-10.8)
[2024-12-04 07:16] VITALS: PULSE 92; TEMP 98.2; O2SAT 95
[2024-12-04 07:33] LABS: ANC (manual) 48.52 K/uL (1.4-6.5); Anisocytosis Present; Dohle Bodies 2+; Polychromasia 1+; Toxic Granulation 1+
--- NOTE | 2024-12-04 09:10 | Radiation OncologyConsultation ---
Date of Consultation December 04, 2024 Assessment & Plan (1) Metastatic neoplasm: (2) Metastasis to brain: Plan ATTENDING ADDENDUM The patient's case was discussed and reviewed with the midlevel provider. The patient's MRI of the brain on this admission was reviewed as well. Overall there appears to be improvement scans which revealed metastatic disease. No plan for radiation therapy at this time. Continue routine surveillance in the outpatient setting. The patient instructed to call us with any further questions or concerns. Radiation oncology will sign off from the case. Please call us with any further questions or concerns. History of Present Illness Reason for Consultation: Brain metastasis Requesting Physician: Loreto Uriarte PA-C Attending Physician: Hakeem Puente MD History of Present Illness Ms. Zhang was being followed with screening mammograms. 06/16/2018. Patient undergoes bilateral screening mammogram tomosynthesis with CAD. This identified a new mass with associated calcifications in the left upper outer quadrant. The mass measured at least 1.8 x 1.9 cm. This was compared to her prior mammogram of 12/02/2015. Recommended spot compression tomosynthesis views, spot magnification views and targeted breast ultrasound for further evaluation. In addition there was a possible lobulated circumscribed 1.3 cm mass within the right medial breast middle depth on the cc view. Additional imaging for this finding was also recommended. 06/22/2018. Patient undergoes bilateral digital diagnostic mammogram tomosynthesis and bilateral breast ultrasound. The previously described asymmetry in the right medial breast was less prominent on additional spot compression views without a discrete mammographic mass. Spot magnification views of the left breast redemonstrated a new mass with non-circumscribed margins measuring 1.6 x 1.9 x 1.7 mm. Pleomorphic calcifications are seen with in and anterior to the mass. The total extent of the mass and calcifications measured approximately 2.1 x 2.1 x 2.8 cm. 06/24/2018. Patient undergoes ultrasound-guided biopsy of the left breast for a mass with associated calcifications at the 2 o'clock position. This revealed an infiltrating adenocarcinoma, grade 3 with features of invasive apocrine carcinoma seen. The combined score is 8/9 (grade 3). Lymphatic space invasion was not seen. 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 The infiltrating carcinoma is estrogen receptor negative, weakly and focally progesterone receptor positive and indeterminant for overexpression of HER-2/aimee protein on immunohistochemical stains. Case #: [id number]. 06/24/2018. FNA of the left axillary mass was performed. This was positive for adenocarcinoma. Case #: [id number]. 07/13/2018. Patient undergoes bilateral breast MRIs with contrast. In the left breast a dominant irregular enhancing mass with associated biopsy marker was noted in the upper outer posterior 2:00 left breast. This measures 2.4 x 1.8 x 2.1 cm and corresponds with the recently biopsy-proven carcinoma. There was faint linear non-mass enhancement anterior to this mass extending towards the nipple by 1.8 cm of concern for DCIS. The mass also abuts the pectoralis muscle with fingerlike projections extending posteriorly towards the pectoralis muscle without definite evidence of pectoralis muscle enhancement or invasion. There was an additional linear and clumped non-mass enhancement in the lower outer quadrant of the left breast at the 4:00 anterior depth measuring 0.9 x 2.6 x 1.3 cm of concern for DCIS. There is left axillary and subpectoral lymphadenopathy. There are at least 6 enlarged left axillary lymph nodes 2 of which are moderately enlarged and 1 of those containing an internal biopsy clip denoting the area of biopsy-proven metastatic disease. The largest lymph node measures 1.8 cm. The left subpectoral lymph node measures 0.3 cm. In the right breast a focal area of the mass and non-mass enhancement in the retroareolar middle one third central at 6:00 revealed a small area of enhancement measuring 5.9 mm and consistent with a benign cyst. Targeted second look ultrasound with possible ultrasound-guided core biopsy was recommended. 07/19/2018. Patient seen in consultation by Dr. Bridger Monzon (medical oncology). He noted that the patient had undergone genetic testing and was BRCA1 and BRCA2 negative. He recommended consideration of neoadjuvant systemic chemotherapy for what was considered a triple negative carcinoma. 07/20/2018. Patient undergoes biopsy of the left "non-mass enhancement left lower outer quadrant on MRI". This revealed fibrocystic and intraductal hyperplasia but no tumor seen. Biopsy of the right breast "right subareolar breast mass" ultrasound-guided confirmed fat necrosis with no tumor seen. Case #: [id number]. 07/30/2018. Patient undergoes staging CT scan of the chest abdomen and pelvis. This confirmed a 1.7 cm left axillary lymphadenopathy. There was no evidence of disseminated metastatic disease. 08/12/2018. Dr. Monzon started the patient on neoadjuvant dose dense Adriamycin and cyclophosphamide. 10/14/2018. Patient is started on weekly paclitaxel. She is completed 4 cycles of dose dense AC. 10/28/2018. Patient returns to see Dr. Monzon. She had completed 2 cycles of the Paciletaxel and presented for her third. The plan is a total of 12 cycles of weekly paclitaxel. She was tolerating her treatment fairly well. 12/02/2018. Patient returns to see Dr. Monzon. She presented for cycle 8 of weekly paclitaxel out of a planned 12. She continued to tolerate treatment well. 12/29/2018. Patient is seen by Dr. Fowler (general surgery). Her examination of the left breast revealed a decrease in the size of the previously identified 2.5 cm area of thickening/mass which measured 1 cm. She recommended restaging with bilateral breast MRIs after the completion of systemic chemotherapy and discussed the option of conservative therapy with partial mastectomy and axillary dissection/sentinel node. 01/17/2019. Patient undergoes bilateral breast MRIs with and without contrast. This showed a significant decrease in size of the known cancer in the upper outer quadrant of the left breast. It also showed a decrease in size of the left axillary lymph nodes which were biopsy-proven. The right breast was unremarkable 01/25/2019. Dr. Fowler performed a left breast partial mastectomy and left sentinel node excision. The partial mastectomy specimen revealed residual invasive carcinoma with apocrine features measuring at least 1.3 cm, grade 3. DCIS with apocrine features, grade 3, cribriform and solid patterns were noted. All margins were negative. A palpable left axillary lymph node was excised and revealed residual metastatic carcinoma measuring 7 mm with no extracapsular extension identified. There was lymphovascular invasion identified and biopsy clip noted. 6 additional left sentinel lymph nodes were excised 2 of which contained metastatic disease with no extracapsular extension and an additional 6 left sentinel lymph nodes were excised all 6 without evidence of metastatic disease. Therefore a total of 13 lymph nodes were excised 12 of them sentinel of which 3 were positive with macro metastasis. Final AJCC pathologic staging was ypT1c, ypN1a, ER negative, KS negative and HER-2/aimee negative. Accession #: [id number]. 03/31/2019. Patient unfortunately noted after stopping weekly paclitaxel that she developed increasing neuropathy symptoms in both lower extremities to the point where she was not able to walk well by herself. She started ambulating with the help of a wheelchair and was seen by neurology. An EMG nerve conduction study confirmed evidence of neuropathy. Spinal tap showed no abnormal findings. Blood examination for paraneoplastic antibody testing was negative. The patient was encouraged to start her adjuvant radiation but because of her weakness and difficulty in ambulating she opted to delay initiation until she was feeling better. 04/26/2019. Patient returns for follow-up to Dr. Monzon. She noted that with treatment her ambulation has improved though she continues with the use of a walker. She agreed to proceed with adjuvant radiation and Dr. Monzon arrange for us to see the patient in referral. 05/10/2019. Patient seen in radiation oncology for evaluation and discussion of the role of adjuvant radiation. 07/18/2019. Status post completion of radiation therapy. She received 6440 cGy. Treatment to the left breast, supraclavicular area and axilla. 08/2024. More recently, the patient developed left eye symptoms including difficulty opening her left eye. She also developed left eye pain. 09/2024. Primary care office told the patient to go to the emergency room. 09/21/2024. Patient admitted to the hospital for workup and evaluation. 09/21/2024. CT chest. Extensive bilateral noncalcified lung masses with associated mediastinal and hilar lymphadenopathy and left axillary lymphadenopathy. Appearance is most consistent with neoplasm/ metastatic disease. Subacute or old or incompletely healed left posterior lateral seventh rib fracture. 09/21/2024. CTA neck. 1. No stenosis or dissection within the bilateral common carotid, cervical internal carotid or vertebral arteries. 2. Multiple masses and nodules within the visualized lungs, including a 5 x 3 cm left upper lobe mass. These are consistent with a neoplastic process and worri some for lung malignancy. A CT of the chest is recommended for further evaluation. 3. Pathologic mediastinal, left hilar and right supraclavicular lymphadenopathy. 09/21/2024. MRI brain. 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 There is enhancing tumor in the posterior left orbit. Recommend MRI of the orbits with and without contrast for further evaluation. 09/22/2024. Pulmonary consultation. Dr. Man recommended consideration of bronchoscopy with biopsy of pulmonary mass. 09/22/2024. Inpatient consultation. Recommendation for whole brain radiation therapy as well as radiation to the left skull. There is recommendation for dexamethasone 4 mg twice daily. Patient was in agreement to start treatment. She was brought to radiation oncology underwent simulation and completed radiation therapy. There is recommendation for patient to begin memantine. 09/28/2024. Status post ultrasound-guided aspiration of a right supraclavicular lymph node. Path report reveals: Metastatic carcinoma consistent with breast primary. Estrogen receptor negative, progesterone receptor negative and HER2/aimee negative by FISH. 10/06/2024. Status post completion of palliative radiation therapy to the brain/head. She received 3000 cGy. Treatment completed in 10 fractions. 10/11/2024. PET/CT. 1. Extensive FDG avid pulmonary lesions consistent with metastatic disease, as described above. 2. Numerous FDG avid skeletal metastases, including L3 and L4 vertebral lesions with epidural extension better depicted on CT of September 22, 2024. No pathologic fractures. However, a 2.5 cm lytic lesion within the subtrochanteric portion of the right femur which may be at mild risk for developing a pathologic fracture. 3. Lower cervical and thoracic pathologic lymphadenopathy, as described above. 4. A few suspected small hepatic metastases. 10/12/2024. Initiation of pembrolizumab and gemcitabine. 10/18/2024. Radiation oncology follow-up. Patient has been referred back to our office for evaluation of her recent PET/CT. Findings have shown lytic lesions of the spine. There is also a lytic lesion within the right subtrochanteric portion of the right femur which may be at risk for pathologic fracture. She denies pain of the back, hip or right leg. She is having issues with the Namenda that was prescribed. This is causing sluggishness and constipation. She is currently taking a 5 mg pills. She takes 2 in the morning and 1 at night. She has been following a taper up protocol. She has also continued on dexamethasone 4 mg twice daily posthospitalization. She is not having any issues with headaches. The ptosis of the left eye has steadily improved. She has seen an school cafeteria head cook. There has been discussion of lenses that could help as a minor procedure. 10/31/2024. Status post completion of palliative radiation therapy to the right femur. She received 2000 cGy. Treatment completed in 5 fractions. 11/30/2024. Cycle 3-day 8. Carboplatin as a single agent with gemcitabine held. 12/01/2024. Infusion of 2 units of packed red blood cells. 12/01/2024. Pegfilgrastrim 6 mg. 12/02/2024. Emergency room evaluation admission. Leg weakness, recurrent falls, sepsis and elevated white blood cell count. 12/02/2024. Chest x-ray. Worsening bilateral perihilar pneumonia and pulmonary vascular congestion. 12/02/2024. X-ray of left femur. No abnormality seen. 12/02/2024. Head CT. 1. Cerebral atrophy. 2. There is a new approximate 4 mm right posterior convexity frontal hyperdensity which appears similar to other cortical calcifications which generally reflect previous infection. Small focal hemorrhage should be considered given the short-term interval change. Recommend short-term follow-up. No associated edema. 12/02/2024. Head MRA without contrast. Normal brain MRA. 12/02/2024. Brain MRI. 1. There are few scattered small foci of acute infarct, the largest in the high left frontal centrum semiovale measuring 8 mm. 2. Interval decrease in intraparenchymal metastatic disease from September 2024. 3. Continued pachymeningeal metastatic disease, as well as suspicion of tumor extension into the paranasal sinuses, otherwise similar to prior. 12/03/2024. CT of the abdomen pelvis. 1. Worsening osseous metastases. Impression new small bilateral pleural effusions. 2. Extensive metastatic disease to the lungs with confluent metastatic masses in both upper lobes as described. 12/03/2024. Chest CT. 1. Worsening osseous metastases. Impression new small bilateral pleural effusions. 2. Extensive metastatic disease to the lungs with confluent metastatic masses in both upper lobes as described. 12/03/2024. CT of the head. No acute change. Chronic changes with stable asymmetric hypodensity in the left centrum semiovale corresponding to an area of acute restricted diffusion/ischemia on MRI. 12/04/2024. Radiation oncology inpatient consultation (Tyree Sue PA-C/Curtis Monzon MD). Patient has been undergoing chemotherapy. Most recent infusion 11/30/2024. Cycle 3-day 8. She was given carboplatin alone. The next day she was transfused 2 units of blood. Following this she developed increased leg weakness and fatigue. She denied any issues with cough or shortness of breath. She has had no fever or chills. She did have generalized aching discomfort. She had discomfort in the mid abdomen. Zofran was helpful. There are issues with constipation. She took Senokot 2 in the morning and 1 at night and this keeps her regular. Left leg weakness was noted and with recurrent falls she was brought to the emergency room for evaluation. Since hospitalized she does feel improved. She does continue to have leg weakness. She has been receiving physical therapy at [facility]. She was slated to have a recheck MRI this week. This previously was scheduled through our office. We discussed that this will be canceled since she has undergone imaging here. Images were reviewed by Dr. Monzon. It is felt that there is improvement in the brain metastasis. She had completed hippocampal sparing whole brain radiation therapy 10/06/2024. In regards to the prior radiation therapy. She is having no issues with headaches or dizziness. She does have mild diplopia. She has had the generalized weakness prior to coming in for admission with recurrent falls. Her states he she has fallen 5 times. There has been no injuries. Her notes that she is very slightly slower in answering questions. We have previously discussed Namenda with the patient and her . The decision was made to hold until she would show signs of concern in regards to memory. Allergies Allergy/AdvReac Type Severity Reaction Status Date / Time erythromycin base Allergy Severe Facial Verified 12/02/24 13:06 swelling Penicillins Allergy Severe Rash Verified 12/02/24 13:06 Home Medications Medication Instructions Recorded Confirmed Type prochlorperazine maleate 10 mg 10 mg PO Q6H PRN Nausea And 10/18/24 12/02/24 History tablet (Compazine) Vomiting famotidine 20 mg tablet 20 mg PO DAILY PRN gerd 11/01/24 12/02/24 History sennosides 8.6 mg tablet (Senokot) 8.6 mg PO BID PRN contipation 11/01/24 12/02/24 History cyanocobalamin (vitamin B-12) 500 500 mcg PO BID 11/06/24 12/02/24 History mcg tablet (Vitamin B-12) ondansetron 8 mg disintegrating 8 mg PO Q8H PRN Nausea And Vomiting 12/02/24 12/02/24 History tablet aspirin 81 mg tablet,delayed 81 mg PO QAM #0 tabs 12/04/24 Rx release Patient History Medical History Malignant neoplasm of lower-outer quadrant of left breast of female, estrogen receptor negative FNA L axillary lump 06/24/18- s/p chemo; s/p left breast partial mastectomy and left SN excision 01/2019; s/p XRT 06/2019 Burning with urination started 11/12/24, denies fever or any other symptoms- patient instructed by [facility] nursing to call surgeon and PCP office to discuss further management Malignant neoplasm of breast metastatic to bone 09/2024 with metastasis to bone, brain, lung Limb alert care status left arm Nausea and vomiting Ptosis - steadily improved per 11/06/24 oncology records Proptosis Left eye, due to tumor Cerebral venous sinus thrombosis, acute Per discharge summary 09/25/24- after further review- feel that occlusion is not a thrombus but more likely tumor Lung mass Facial mass Lesion of right femur Had 5 XRT treatments, last was on 10/31/24 Nerve damage Residual balance issues Peripheral neuropathy Lymphadenopathy, mediastinal Double vision Tumor pushing on left eye Metastasis to brain Taking memantine as precautionary- currently tapering off was on daily dexamethasone (currently tapering off ) recently completed SBRT radiation to the brain Periorbital edema of both eyes L > R- states tumor is pushing her left eye outward Osteopenia GERD (gastroesophageal reflux disease) mild hiatal hernia Status post chemotherapy Neoadjuvant chemo 07/2018-12/2018 Surgical History H/O insertion of central venous access port (11/15/24) Insertion of Left Internal Jugular Access Port with Fluoroscopy(Left) - Lambert Samaniego, , FACS History of lumbar puncture (02/2019) H/O insertion of central venous access port (2018) right side/removed History of removal of Port-a-Cath (2019) 2019 Hx of lymph node excision (01/25/19) 13 lymph nodes, left arm pit Hx of tonsillectomy History of bunionectomy (1992) right foot, as well as bone spur removal Family History Mother No problems noted. Father , 83yo Colorectal cancer Brother No problems noted. Brother No problems noted. Denies family history of Ovarian cancer Prostate cancer Myocardial infarction Breast cancer Social History Smoking Status: Former smoker Tobacco Type: Cigarettes Age Started Using Tobacco: 17; Age Quit Using Tobacco: 27; packs per day: 0.5; Cigarettes Per Day: 1/2 PPD x 10 yrs;; Second Hand Exposure: No; Do You Dip or Chew Tobacco: No; Hx Alcohol Use: Yes Alcohol type: beer Hx Substance Use: No Preferred Language: Urdu Communication Ability: Effective Visual Impairment: No Limitations Hearing Ability: Normal Hat And Cap Sewer Required: No Beliefs That Will Affect Care: None marital status: Current Living Situation: Spouse Current Living Situation Comment: home with current occupational status: retired and disabled 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 Breast cancer. Triple negative. [id number]. Stage ypT1c ypN1a. 09/21/2024. Brain metastasis. 10/11/2024. Bone metastasis. Treatment: Neoadjuvant systemic therapy. Adriamycin and Cytoxan for 4 cycles followed by Taxol weekly for 12 weeks 01/25/2019. Status post lumpectomy and sentinel lymph node biopsy 01/25/2019. 07/18/2019. Status post completion of radiation therapy. She received 6440 cGy. Treatment to the left breast, supraclavicular area and axilla. 10/06/2024. Status post completion of palliative radiation therapy to the brain/head. She received 3000 cGy. Treatment completed in 10 fractions. 10/12/2024. Initiation of pembrolizumab and gemcitabine. 10/31/2024. Status post completion of palliative radiation therapy to the right femur. She received 2000 cGy. Treatment completed in 5 fractions. Review of Systems Review of Systems: 13 point review of system completed and is negative other than what is mentioned in the history of present illness. Physical Exam Constitutional: WD/WN, vitals as above Eyes: PERRL, conjunctivae normal, anicteric sclerae ENMT: Ears: no hearing impairment Neck: trachea midline, no thyromegaly Respiratory: normal respiratory effort, lungs clear to auscultation Cardiovascular: RRR, no murmur, no edema Gastrointestinal (Abdomen): normal bowel sounds, soft, nontender, no hepatosplenomegaly Skin: no rashes, warm and dry Neurologic: Speech / Cognition: normal speech Motor/Sensory: no tremor Cranial Nerves: PERRL, EOM intact bilaterally (Sluggish [id number] movements.) and normal facial strength (Ptosis left upper eyelid.) Generalized decreased strength. Psychiatric: A+Ox3, euthymic affect Results (Rad Onc) Reviewed in the history of present illness. Time Spent Attending I spent [20] minutes in preparation for this follow up evaluation including reviewing all the clinical records, reviewing laboratory studies, pathology repo rts and imaging results. I spent [20] minutes with direct face to face interaction with the patient and/or family including performing a physical exam and answering all questions. I spent [10] minutes documenting this patient's visit. PG Care Time/CCT Total # of Minutes Spent Total Time Spent with Patient: Total time spent is greater than 50% in coordination of care (as documented) at patient's floor/unit and/or counseling patient: [place] [address] Inpt Consult Level 1 Patient Type Established History Problem Focused Exam Problem Focused Medical Decision Making Straight Forward Diagnoses Metastatic neoplasm C79.9 Metastasis to brain C79.31
--- NOTE | 2024-12-04 09:33 | XRay Report ---
XR chest 2V PA/lateral CLINICAL HISTORY: metastatic cancer, leukocytosis COMPARISON STUDY: 12/02/2024 FINDINGS: Stable left chest port. Heart size and pulmonary vasculature are normal. Stable scattered l cristian nodules. Stable bilateral perihilar lung masses. Stable small right pleural effusion. No new cons olidation seen. No pneumothorax. IMPRESSION: Stable exam. ACT 112: Negative or not required by law. Electronically signed by: Lambert Recinos M.D. 12/04/2024 9:31 AM
[2024-12-04] MEDS: SENNA 8.6 MG TAB PO SCH (09:36)
--- NOTE | 2024-12-04 10:21 | Electrocardiogram Report ---
Test Reason : Blood Pressure : */* mmHG Vent. Rate : 96 BPM Atrial Rate : 96 BPM P-R Int : 128 ms QRS Dur : 70 ms QT Int : 356 ms P-R-T Axes : 38 18 42 degrees QTcB Int : 449 ms Sinus rhythm with Premature atrial complexes with Aberrant conduction Low voltage QRS Borderline ECG When compared with ECG of 25-Oct-2024 14:29, Aberrant conduction is now Present Confirmed by Nishant Cerna ([id number]) on 12/04/2024 10:21:05 AM Referred By: REFERRED SELF Confirmed By: Nishant Cerna
[2024-12-04 11:10] VITALS: BP 102/69; RESP 18
--- NOTE | 2024-12-04 11:49 | Discharge Summary ---
Discharge Summary Date of Service December 04, 2024 Principal Dx & Hospital Course #1 = Principal Diagnosis (1) Sepsis: Ruled out (2) Bilateral pneumonia: Ruled out (3) Left leg weakness: Improved with physical therapy (4) Malignant neoplasm of breast metastatic to bone: Metastases have progressed. Currently under treatment by Dr. Woodall (5) Metastasis to brain: Breast cancer primary. Currently under treatment by Dr. Woodall (6) Peripheral neuropathy: Chronic. Continue current medical management (7) Fall: Continue physical therapy as an outpatient. Home health services requested. Prescription for wheeled walker provided (8) Metastatic neoplasm: Breast primary (9) Leukocytosis: No evidence of active infection at this time (10) Elevated troponin: No chest pain. No acute EKG changes. No evidence of ACS Plan Home today with home health services, December 04 Admission HPI Per Admitting Provider 63yo female with hx breast cancer presenting for bilateral leg weakness and multiple falls (5) since yesterday, feeling very weak since her blood transfusion. Patient evaluated in A10, in room. Reports they went for chemotherapy yesterday but that her hemoglobin was low and they gave her a unit of blood as well as a "shot" for cause for white count elevation. Reports she received chemotherapy but unsure what the regimen was but that she did not get "cisplat" due to low hemoglobin. reports she did get transfusion for hgb 7 in the past and "felt like a new woman" but did not get chemotherapy with that transfusion and suspect weakness ongoing from chemotherapy but also with pneumonia on imaging. Slight chills at home, no fever here. Port looks good, reports received 2 rounds of chemo and due for third this past week which was received and plans for restaging in follow up with Dr Abbasi. Discussed I messaged her primary oncologist for discussion and review of chemotherapy -- reports received carboplatin, gemcitabine during treatment and will place consult to be seen. She does have leg weakness, known lesions to L3-4 but also R femur. Reports having increased weakness on the left, took ibuprofen ~400mg yesterday. Denies headache but discussed CT head finding, concerns small hemorrhage. Will plan for MRI and CT angio for further evaluation, defer anticoagulation at this time. No hx DVT/PE. No longer on steroids, improvement in generalized edema/puffiness to face reported. Has been working w/ outpatient PT through [facility] but not having success and will consult PT/OT to see about short term rehab vs other. Discussed will defer on anticoagulation at this time. Full code ER Course: WBC 40.6k, hgb 10.6, LFT elevation similar to prior. UA w/ trace leuk esterase, no bacteria. Stable renal function CXR w/ bilateral perihilar pneumonia and pulmonary vascular congestion CT head w/ "new approx 4mm R posterior convexity frontal hyperdensity appears similar to other cortical calcifications which generally reflect previous infection. Small focal hemorrhage should be considered given short-term interval change"., rec short term follow up" Provided Cefepime IV, 1L NSS bolus Discharge Plan Discharge Items Patient Disposition: Home - Home Health Services Reason For Visit: WEAKNESS, FALL, PNEUMONIA,IMMUNCOMPROSED Discharge Diagnosis: Breast cancer with progressing metastatic disease, weakness Condition on Discharge: Good Activity: Resume your previous activity Non-emergency contact: Primary Care Provider and Oncologist Call non-emergency contact if: your symptoms worsen Follow-up/Referrals: Ann Mayes MD [Primary Care Provider] - Diet: Regular Addtl Attending Provider Instructions: All medications remain the same. Follow-up with primary care provider and oncologist as soon as possible. Use a wheeled walker when ambulating Pending Studies at Discharge: No Stand-Alone Forms: My [employer], Smoking Cessation Medications and DC Order Prescriptions: New aspirin 81 mg Tablet,Delayed Release (Dr/Ec) 81 mg PO QAM Qty: 0 0RF Continued prochlorperazine maleate [Compazine] 10 mg tablet 10 mg PO Q6H PRN (Reason: Nausea And Vomiting) sennosides [Senokot] 8.6 mg Tablet 8.6 mg PO BID PRN (Reason: contipation) famotidine 20 mg tablet 20 mg PO DAILY PRN (Reason: gerd) cyanocobalamin (vitamin B-12) [Vitamin B-12] 500 mcg Tablet 500 mcg PO BID ondansetron 8 mg tablet,disintegrating 8 mg PO Q8H PRN (Reason: Nausea And Vomiting) Discharge Orders: Discharge Order (Routine); Ordered 12/04/24 Ordered By: Hakeem Puente Admission Data Admit Date/Time: 12/02/24 14:09 Attending Provider: Hakeem Puente Admit Provider: Dae Walden Primary Care Provider: Ann Mayes Other Providers: Dae Walden; Michael Blackman; Pooja Abbasi; Bridger Monzon Hospital Stay Data Consultations 12/02/24 12:57 ED Decision to Admit Stat 12/02/24 16:42 Consult Neurology Routine Consult Oncology Routine 12/02/24 18:58 Consult Radiation Oncology Routine Diagnostic Imagining Performed 12/02/24 11:59 CT head/brain wo con Stat 12/02/24 13:50 MRI Angio Brain [MR angio head wo con] Urgent 12/02/24 13:52 MRI Brain [MR brain wo/w con] Stat 12/03/24 08:08 CT abd pelvis IV con only Routine 12/03/24 08:10 CT chest diagnostic w con Routine 12/03/24 12:00 CT head/brain wo con Routine Pending Results Patient Have Any Pending Studies at Discharge: No Discharge Instructions Given to Patient (Per Discharging Provider) All medications remain the same. Follow-up with primary care provider and oncologist as soon as possible. Use a wheeled walker when ambulating Total Time Total Time Spent Total Time Spent (In Minutes): 45-minute Coding Level of Care Code 16701 INP/OBS DISCH >30 MIN Diagnoses Sepsis A41.9 Bilateral pneumonia J18.9 Left leg weakness R29.898 Malignant neoplasm of breast metastatic to bone C50.919; C79.51 Metastasis to brain C79.31 Peripheral polyneuropathy G62.9 Peripheral neuropathy type: polyneuropathy, unspecified Fall W19.XXXA Metastatic neoplasm C79.9 Leukocytosis D72.829 Elevated troponin R79.89
--- NOTE | 2024-12-05 12:33 | Coding Query ---
CODING QUERY To promote full compliance with coding requirements relating to patient care, provider participation is requested in all cases of scrap collector uncertainty. Please assist us with the question(s) below: Coding Question(s): Please specify below, in your clinical opinion, the most likely cause of leg weakness and falls: ( x ) Chemotherapy adverse effect ( ) Metastasis to Brain ( ) Metastasis to Bone ( ) Other: Please Specify ( ) Unknown most likely source Physician's Response(s): Thank you Deyanira Tay Principal Diagnosis: "that condition established after study, to be chiefly responsible for occasioning the admission of the patient to the hospital for care." Co-Existing Principal Diagnosis: "when two or more diagnoses equally meet the criteria for principal diagnosis as determined by the circumstances of admission, diagnostic work up, and/or therapy provided, and the Alphabetic Index, Tabular List, or another coding guideline does not provide sequencing direction, any one of the diagnoses may be sequenced first." "When the physician has documented what appears to be a current diagnosis in the body of the record, but has not included the diagnosis in the final diagnostic statement, the physician should be asked whether the diagnosis should be added." (Source Coding Clinic 2 QTR90. p3-4) [facility]
== END 2024-12-04 13:29 | disposition home health service (06) | DRG 92 ==
LOC: SUATTDRO → ED 11:12 → SUATTDRO 14:09 → 2N 14:09

== ENCOUNTER 2025-01-28 07:32 | Inpatient (IN) ==
--- NOTE | 2025-01-28 07:59 | Emergency Department Note ---
Impression & Plan Pleural effusion on left, Pleural effusion on right, Acute pericardial effusion, VALERO (dyspnea on exertion), Hypoxia, Breast cancer metastasized to lung ED Provider Note NAME: NIXON CAMPBELL AGE: 64 SEX: F : 1960 ARRIVES VIA: Walk-In INFORMANT: Patient, ED PROVIDER(S): Nishant Anne DO CHIEF COMPLAINT: Shortness of breath HPI: The patient is a 64-year-old female who presented to the emergency department for an evaluation of shortness of breath. The patient states that over the last few weeks she has been having problems with shortness of breath. She notices shortness of breath when bending over as well as lying flat. She is having shortness of breath with exertion. She denies having any chest pain. She has noticed some lower extremity swelling. The patient states that she has a history of breast cancer. This appears to be metastatic. Her last chemotherapy and radiation had been approximately 5 weeks ago or longer. She denies having any hemoptysis. The patient has a cough but no sputum. ROS: See above HPI for pertinent positives & negatives. A total of 10 systems reviewed and were otherwise negative. PAST MEDICAL HISTORY: See Below PAST SURGICAL HISTORY: See Below FAMILY HISTORY: See Below SOCIAL HISTORY: See Below HOME MEDICATIONS: See Below ALLERGIES: See Below VITALS: See Below PHYSICAL EXAMINATION: GENERAL: The patient is awake and alert. She is frail-appearing. EYES: The conjunctivae are clear. The pupils are round and reactive. Mild proptosis was noted with the left eye. EARS, NOSE, MOUTH AND THROAT: The nose is without any evidence of any deformity. NECK: The neck is nontender and supple. RESPIRATORY: Shallow respirations were noted. There were scattered rhonchi with rales noted mostly at the left base. There is no tachypnea or conversational dyspnea. CARDIOVASCULAR: Tachycardic and regular heart sounds were noted auscultation. There is no definite murmur. GASTROINTESTINAL: The abdomen is soft. Abdomen is nontender. MUSCULOSKELETAL/EXTREMITIES: There is no evidence of gross deformity full range of motion is noted in the hips and shoulders. SKIN: There is no obvious evidence of any rash. There are no petechiae, pallor or cyanosis noted. NEUROLOGIC: Patient is awake alert and oriented x3 MEDICAL DECISION MAKING: The patient is a 64-year-old female who presented to the emergency department for an evaluation of difficulty breathing. The patient was having exertional dyspnea as well as orthopnea. The patient's history and physical exam did appear to be consistent with pleural effusions. Chest x-ray showed pleural effusions. Given her cancer history I did feel she could be at risk for venous thromboembolic disease. For this reason CT angiography of the chest was obtained. The patient was having exertional symptoms as well as hypoxia. She was placed on supplemental oxygen. I discussed the patient's laboratory and radiographic studies at the bedside. I [facility] have agreed to evaluate the patient in the emergency department for further management and disposition. Triage Nursing notes reviewed. Prior medical records reviewed Vital Signs: reviewed and remarkable for tachycardia. Differential diagnosis: Reactive airway disease, pneumonia, pneumothorax, COPD, CHF, infections, cardiac ischemia, pulmonary embolism, musculoskeletal, gastrointestinal, as well as other pathologies. ER treatment provided: See below Diagnostics interpreted by me: ECG: EKG was obtained in the emergency department. My interpretation is sinus tachycardia at 124 bpm. There is no ectopy. Low voltage was noted throughout. This was compared to a tracing from December 02, 2024. There is an increase in the rate otherwise no specific changes were noted. Cardiac Monitoring: An order was placed for continuous cardiac monitoring. The monitor shows a rate of 112 bpm with sinus tachycardia. Laboratory studies: As stated above and show below. Imaging studies: See below. Radiographic imaging was reviewed by myself Consultation(s): I discussed this case with Dr. Puente who [facility]. Past Med/Surg History Problem List (Updated 01/28/25 @ 10:02 by Nishant Anne DO) Breast cancer metastasized to lung (Acute) Hypoxia (Acute) VALERO (dyspnea on exertion) (Acute) Acute pericardial effusion (Acute) Pleural effusion on right (Acute) Pleural effusion on left (Acute) Cancer related pain Periorbital cellulitis of left eye Elevated troponin (Acute) Leukocytosis (Acute) Fall Bilateral leg weakness Periorbital edema of both eyes LAD (lymphadenopathy), mediastinal Facial mass (Acute) Double vision (Acute) Lung mass (Acute) Cerebral venous sinus thrombosis, acute (Acute) Proptosis Ptosis Osteopenia GERD (gastroesophageal reflux disease) mild hiatal hernia Lymphedema Foot drop BRCA gene mutation negative Medical History Metastasis to brain Metastatic neoplasm Peripheral neuropathy Malignant neoplasm of lower-outer quadrant of left breast of female, estrogen receptor negative FNA L axillary lump 06/24/18- s/p chemo; s/p left breast partial mastectomy and left SN excision 01/2019; s/p XRT 06/2019 Burning with urination started 11/12/24, denies fever or any other symptoms- patient instructed by [facility] nursing to call surgeon and PCP office to discuss further management Malignant neoplasm of breast metastatic to bone 09/2024 with metastasis to bone, brain, lung Limb alert care status left arm Nausea and vomiting Ptosis - steadily improved per 11/06/24 oncology records Proptosis Left eye, due to tumor Cerebral venous sinus thrombosis, acute Per discharge summary 09/25/24- after further review- feel that occlusion is not a thrombus but more likely tumor Lung mass Facial mass Lesion of right femur Had 5 XRT treatments, last was on 10/31/24 Nerve damage Residual balance issues Peripheral neuropathy Lymphadenopathy, mediastinal Double vision Tumor pushing on left eye Metastasis to brain Taking memantine as precautionary- currently tapering off was on daily dexamethasone (currently tapering off ) recently completed SBRT radiation to the brain Periorbital edema of both eyes L > R- states tumor is pushing her left eye outward Osteopenia GERD (gastroesophageal reflux disease) mild hiatal hernia Status post chemotherapy Neoadjuvant chemo 07/2018-12/2018 Surgical History H/O insertion of central venous access port (11/15/24) Insertion of Left Internal Jugular Access Port with Fluoroscopy(Left) - Lambert Samaniego DO, FACS History of lumbar puncture (02/2019) H/O insertion of central venous access port (2018) right side/removed History of removal of Port-a-Cath (2019) 2019 Hx of lymph node excision (01/25/19) 13 lymph nodes, left arm pit Hx of tonsillectomy History of bunionectomy (1992) right foot, as well as bone spur removal Family History Mother No problems noted. Father , 83yo Colorectal cancer Brother No problems noted. Brother No problems noted. Denies family history of Ovarian cancer Prostate cancer Myocardial infarction Breast cancer Social History Smoking Status: Never smoker Tobacco Type: Cigarettes Age Started Using Tobacco: 17; Age Quit Using Tobacco: 27; packs per day: 0.5; Cigarettes Per Day: 1/2 PPD x 10 yrs;; Second Hand Exposure: No; Do You Dip or Chew Tobacco: No; Hx Alcohol Use: Yes Alcohol type: beer Alcohol Intake Frequency: Monthly or Less Hx Substance Use: No Preferred Language: Mongolian Communication Ability: Effective Visual Impairment: No Limitations Hearing Ability: Normal Creative Resource Manager Required: No Beliefs That Will Affect Care: None marital status: Current Living Situation: Spouse Current Living Situation Comment: home with current occupational status: retired and disabled 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 [employer] How many Children do You have: 0 Feels Safe at Home: Yes Childhood Exposure to Second-Hand Smoke: Yes Diet: regular caffeine: Yes (2 cups coffee/day) during the past year weight has: remained stable Dental Care, Regularly: Yes Physical Activity Frequency: Daily Physical Activity Frequency Comment: Daily housework and cleaning Seatbelt Use: always Sunscreen Use: Yes Do you think of yourself as: straight/heterosexual Sexual Activity: has been sexually active, but not for at least 12 months Gender Identity: Female Assistive Devices: Glasses and Walker Allergies Allergies Allergy/AdvReac Type Severity Reaction Status Date / Time erythromycin base Allergy Severe Facial Verified 01/28/25 09:53 swelling Penicillins Allergy Severe Rash Verified 01/28/25 09:53 Home Meds Home Medications Medication Instructions Recorded Confirmed prochlorperazine maleate 10 mg 10 mg PO Q6H PRN Nausea And 10/18/24 01/28/25 tablet (Compazine) Vomiting famotidine 20 mg tablet 20 mg PO DAILY PRN gerd 11/01/24 01/28/25 sennosides 8.6 mg tablet (Senokot) 8.6 mg PO BID PRN contipation 11/01/24 01/28/25 cyanocobalamin (vitamin B-12) 500 500 mcg PO BID 11/06/24 01/28/25 mcg tablet (Vitamin B-12) ondansetron 8 mg disintegrating 8 mg PO Q8H PRN Nausea And Vomiting 12/02/24 01/28/25 tablet Previous Rx's Medication Instructions Recorded hydrocodone 5 mg-acetaminophen 325 1 tab PO Q6H PRN pain #60 tabs 01/10/25 mg tablet Results & Data (ED) Vital Signs Vital Signs - 24 hr 01/28/25 07:36 01/28/25 07:42 01/28/25 07:42 Temperature 36.5 C Temperature Source Oral Pulse Rate 128 H Pulse Rate [Apical] Pulse Rate from SpO2 Sensor Respiratory Rate 22 Respiratory Effort / Characteristics Spontaneous Respiratory Pattern Regular Blood Pressure 108/74 Blood Pressure [Right Arm] Blood Pressure Mean 85 Blood Pressure Mean [Right Arm] Blood Pressure Position [Right Arm] Pulse Oximetry 96 Oxygen Delivery Method Room Air Room Air Room Air Oxygen Flow Rate Sepsis Recent Fever Within 48 Hours No Sepsis New/Unexplained Change in Mental Status No Sepsis Action Taken by Nursing No Action Required Oxygen Flow Rate - Titration Pulse Oximetry Post Tiitration 01/28/25 07:42 01/28/25 07:42 01/28/25 07:48 Temperature Temperature Source Pulse Rate 120 H Pulse Rate [Apical] 120 H Pulse Rate from SpO2 Sensor Respiratory Rate 20 20 Respiratory Effort / Characteristics Respiratory Pattern Blood Pressure 123/100 Blood Pressure [Right Arm] 117/82 Blood Pressure Mean 107 Blood Pressure Mean [Right Arm] 93 Blood Pressure Position [Right Arm] Semi-fowlers Pulse Oximetry 93 93 Oxygen Delivery Method Room Air Room Air Oxygen Flow Rate Sepsis Recent Fever Within 48 Hours Sepsis New/Unexplained Change in Mental Status Sepsis Action Taken by Nursing Oxygen Flow Rate - Titration Pulse Oximetry Post Tiitration 01/28/25 07:48 01/28/25 07:52 01/28/25 08:00 Temperature Temperature Source Pulse Rate 123 H Pulse Rate [Apical] Pulse Rate from SpO2 Sensor Respiratory Rate Respiratory Effort / Characteristics Respiratory Pattern Blood Pressure 123/100 117/82 Blood Pressure [Right Arm] Blood Pressure Mean 107 91 Blood Pressure Mean [Right Arm] Blood Pressure Position [Right Arm] Pulse Oximetry Oxygen Delivery Method Oxygen Flow Rate Sepsis Recent Fever Within 48 Hours Sepsis New/Unexplained Change in Mental Status Sepsis Action Taken by Nursing Oxygen Flow Rate - Titration Pulse Oximetry Post Tiitration 01/28/25 08:51 01/28/25 08:54 01/28/25 09:00 Temperature Temperature Source Pulse Rate 116 H 122 H Pulse Rate [Apical] Pulse Rate from SpO2 Sensor 121 H Respiratory Rate 29 H 18 Respiratory Effort / Characteristics Respiratory Pattern Blood Pressure 133/95 Blood Pressure [Right Arm] Blood Pressure Mean 113 Blood Pressure Mean [Right Arm] Blood Pressure Position [Right Arm] Pulse Oximetry 90 Oxygen Delivery Method Oxygen Flow Rate Sepsis Recent Fever Within 48 Hours Sepsis New/Unexplained Change in Mental Status Sepsis Action Taken by Nursing Oxygen Flow Rate - Titration Pulse Oximetry Post Tiitration 01/28/25 09:00 01/28/25 09:29 Temperature Temperature Source Pulse Rate Pulse Rate [Apical] Pulse Rate from SpO2 Sensor Respiratory Rate Respiratory Effort / Characteristics Respiratory Pattern Blood Pressure 133/95 Blood Pressure [Right Arm] Blood Pressure Mean 113 Blood Pressure Mean [Right Arm] Blood Pressure Position [Right Arm] Pulse Oximetry 87 L Oxygen Delivery Method Room Air Nasal Cannula Oxygen Flow Rate 0 Sepsis Recent Fever Within 48 Hours Sepsis New/Unexplained Change in Mental Status Sepsis Action Taken by Nursing Oxygen Flow Rate - Titration 2 Pulse Oximetry Post Tiitration 95 Home Medications Current Medication List: was personally reviewed by me Laboratory Data Attestation: I reviewed the patient's lab results. 01/28/25 08:20 01/28/25 08:20 Lab Results 01/28/25 01/28/25 Range/Units 08:20 08:22 WBC 5.77 (4.8-10.8) K/ul RBC 3.31 L (4.20-5.40) M/uL Hgb 10.0 L (12.0-16.0) g/dl Hct 31.3 L (37.0-47.0) % MCV 94.6 (80.0-100.0) fL MCH 30.2 (25.0-34.0) pg MCHC 31.9 L (32.0-36.0) g/dL RDW Std Deviation 55.8 H (36.4-46.3) fL RDW Coeff of Melissa 16.1 H (11.5-14.5) % Plt Count 297 (130-400) K/uL MPV 9.9 (9.4-12.4) fL Immature Gran % (Auto) 0.5 % Neut % (Auto) 86.0 % Lymph % (Auto) 6.2 % [place] % (Auto) 6.6 % Eos % (Auto) 0.2 % Baso % (Auto) 0.5 % Neut # (Auto) 4.96 (1.40-6.50) K/uL Lymph # (Auto) 0.36 L (1.20-3.40) K/uL [place] # (Auto) 0.38 (0.11-0.59) K/uL Eos # (Auto) 0.01 (0.00-0.50) K/uL Baso # (Auto) 0.03 (0.00-0.20) K/uL Immature Gran # (Auto) 0.03 (0.01-0.20) K/uL PT 12.4 H (9.0-12.0) Seconds INR 1.2 H (0.9-1.1) APTT 27 (21-31) Seconds PTT Ratio 1.0 Sodium 137 (136-145) mmol/L Potassium 3.2 L (3.5-5.1) mmol/L Chloride 100 (98-107) mmol/L Carbon Dioxide 27 (21-32) mmol/L Anion Gap 10 (3-11) BUN 9 (6-23) mg/dl Creatinine 0.53 L (0.6-1.2) mg/dl Est Cr Clr Drug Dosing Not Reportable eGFR 102.57 BUN/Creatinine Ratio 17.0 (10-20) Glucose 94 (70-99(Fasting)) mg/dl Lactate 1.4 (0.4-2.0) mmol/L Calcium 8.5 L (8.6-10.3) mg/dl Magnesium 1.9 (1.7-2.4) mg/dl Total Bilirubin 0.7 (0.2-1.0) mg/dl AST 51 H (13-39) U/L ALT 16 (7-52) U/L Alkaline Phosphatase 266 H (34-104) U/L Troponin I High Sens 9.5 (0-14) pg/ml C-Reactive Protein 3.82 H (0-0.5) mg/dl B-Natriuretic Peptide 69 (0-100) pg/ml Total Protein 5.5 L (6.0-8.3) gm/dl Albumin 2.9 L (3.4-5.0) gm/dl Globulin 2.6 (2.5-4.0) gm/dl Albumin/Globulin Ratio 1.1 (0.9-2) Procalcitonin 0.11 (0-0.5) ng/ml SARS-CoV-2 (PCR) NEGATIVE (Negative) Influenza Type A (PCR) Negative (Neg) Influenza Type B (PCR) Negative (Neg) RSV (RT-PCR) Negative (Neg) Administered Medications Discontinued Medications Ioversol (Optiray 320 125ml) 112 ml IV ONCE ONE Stop: 01/28/25 08:41 Last Admin: 01/28/25 08:40 Dose: 112 ml Documented By: YISEL Imaging Data Attestation: I personally reviewed and interpreted this imaging study as follows: My Impression: 1 view chest x-ray was obtained in the emergency department. My interpretation is bilateral pleural effusion right greater than left, questionable infiltrate in the left upper lobe, final report below. Radiologist's Impression: Chest X-Ray 01/28/25 07:43 XR chest 1V portable CLINICAL HISTORY: Dyspnea. Breast cancer. COMPARISON STUDY: Chest CT December 03, 2024. Chest radiograph December 04, 2024. FINDINGS: Left internal jugular Gjipys-[id number]-Raee is in place. Moderate right and small left pleural effusions have developed. There is no pneumothorax. Right perihilar and left upper lobe mass-like opacities are again noted. There is mild interstitial thickening. Subtle sclerotic skeletal lesions are noted. IMPRESSION: 1. Interval development of moderate right and small left pleural effusions. 2. Subtle interstitial thickening. This may represent pulmonary edema. 3. Redemonstration of bilateral mass-like opacities consistent with metastatic disease. ACT 112: Negative or not required by law. Electronically signed by: Jason Arboleda M.D. 01/28/2025 8:11 AM Chest CTA 01/28/25 07:56 CT ANGIOGRAM OF THE CHEST CLINICAL HISTORY: Shortness of breath and cough. Breast cancer. COMPARISON STUDY: Chest CT December 03, 2024. Chest radiograph performed earlier today. TECHNIQUE: Following the IV administration of 112 cc of Optiray 320, CT angiogram of the chest was performed from the upper abdomen to the thoracic inlet utilizing the pulmonary embolus protocol. Images are reviewed in the axial, sagittal, and coronal planes. 3-D MIPS images are created and assessed. IV contrast was administered without complication. A dose lowering technique was utilized adhering to the principles of ALARA. CT DOSE: 385.23 mGy.cm FINDINGS: No pulmonary emboli are identified. There is no thoracic aortic dissection. Size of the heart is normal. A moderate-sized pericardial effusion has developed since CT of December 03, 2024. A left internal jugular [id number] is in place. There is no pneumothorax. Large right and moderate left pleural effusions have significantly increased in size since chest CT of December 03, 2024. Partially calcified mediastinal, bilateral hilar and left axillary lymphadenopathy has mildly progressed since prior CT. Bilateral upper lobe predominant masslike densities have increased. Conglomerate left upper lobe lesion on image 156 measures 6.3 x 5.9 cm, previously 5.4 x 5.2 cm. Numerous smaller pulmonary metastases are present. Numerous skeletal metastases within the bony thorax are noted. Several these are more conspicuous than on prior exam. Partially visualized right hepatic lobe lesion measures at least 6.2 x 5.5 cm. This has increased since prior CT of December 03, 2024. Smaller hepatic metastases are present. IMPRESSION: 1. No pulmonary emboli identified. 2. Significant increase in size of large right and moderate left pleural effusions. 3. Interval development of a moderate-sized pericardial effusion. 4. Progression of pulmonary, pastor, osseous and hepatic metastatic disease, as detailed above. ACT 112: Negative or not required by law. Electronically signed by: Jason Arboleda M.D. 01/28/2025 9:34 AM Discharge Plan Visit Data Chief Complaint: Shortness of Breath/Dyspnea Stated Complaint: SOB, COUGH ED Provider: Nishant Anne Discharge Problem: Pleural effusion on left, Pleural effusion on right, Acute pericardial effusion, VALERO (dyspnea on exertion), Hypoxia, Breast cancer metastasized to lung Patient Disposition: Being Evaluated by Hospitalist Condition: Fair Forms Stand Alone Forms: [facility] Prescriptions Prescriptions: No Action prochlorperazine maleate [Compazine] 10 mg tablet 10 mg PO Q6H PRN (Reason: Nausea And Vomiting) hydrocodone-acetaminophen 5-325 mg tablet 1 tab PO Q6H PRN (Reason: pain) Qty: 60 0RF sennosides [Senokot] 8.6 mg Tablet 8.6 mg PO BID PRN (Reason: contipation) famotidine 20 mg tablet 20 mg PO DAILY PRN (Reason: gerd) cyanocobalamin (vitamin B-12) [Vitamin B-12] 500 mcg Tablet 500 mcg PO BID ondansetron 8 mg tablet,disintegrating 8 mg PO Q8H PRN (Reason: Nausea And Vomiting) Referrals Referrals: Ann Mayes MD [Primary Care Provider] -
--- NOTE | 2025-01-28 08:13 | XRay Report ---
XR chest 1V portable CLINICAL HISTORY: Dyspnea. Breast cancer. COMPARISON STUDY: Chest CT December 03, 2024. Chest radiograph December 04, 2024. FINDINGS: Left internal jugular [id number] is in place. Moderate right and small left pleural effu sions have developed. There is no pneumothorax. Right perihilar and left upper lobe mass-like opaciti es are again noted. There is mild interstitial thickening. Subtle sclerotic skeletal lesions are note d. IMPRESSION: 1. Interval development of moderate right and small left pleural effusions. 2. Subtle interstitial thickening. This may represent pulmonary edema. 3. Redemonstration of bilateral mass-like opacities consistent with metastatic disease. ACT 112: Negative or not required by law. Electronically signed by: Jason Arboleda M.D. 01/28/2025 8:11 AM
[2025-01-28] MEDS: OPTIRAY 320 125ml IV ONE (08:40)
[2025-01-28 08:42] LABS: Hematocrit (blood only) 31.3 % (37.0-47.0); Hemoglobin 10.0 g/dl (12.0-16.0); Immature Granulocytes # (auto) 0.03 K/uL (0.01-0.20); Immature Granulocytes % (auto) 0.5 %; Mean Corpuscular Hemoglobin 30.2 pg (25.0-34.0); Mean Corpuscular Volume 94.6 fL (80.0-100.0); Platelet Count 297 K/uL (130-400); RDW Standard Deviation 55.8 fL (36.4-46.3); Red Blood Count 3.31 M/uL (4.20-5.40); White Blood Count 5.77 K/ul (4.8-10.8)
[2025-01-28 09:04] LABS: Alanine Aminotransferase 16 U/L (7-52); Albumin Globulin Ratio 1.1 (0.9-2); Alkaline Phosphatase 266 U/L (34-104); Anion Gap 10 (3-11); Bilirubin,Total 0.7 mg/dl (0.2-1.0); Blood Urea Nitrogen 9 mg/dl (6-23); Calcium 8.5 mg/dl (8.6-10.3); Carbon Dioxide 27 mmol/L (21-32); Chloride 100 mmol/L (98-107); Globulin 2.6 gm/dl (2.5-4.0); Glucose 94 mg/dl (70-99(Fasting)); Magnesium 1.9 mg/dl (1.7-2.4); Potassium 3.2 mmol/L (3.5-5.1); Sodium 137 mmol/L (136-145); Total Protein 5.5 gm/dl (6.0-8.3)
[2025-01-28 09:14] LABS: INR 1.2 (0.9-1.1); Partial Thromboplastin Time 27 Seconds (21-31); Prothrombin Time 12.4 Seconds (9.0-12.0)
[2025-01-28 09:29] LABS: Influenza A virus by PCR Negative (Neg); Influenza B virus by PCR Negative (Neg); SARS CoV2 RNA(COVID-19) Ceph NEGATIVE (Negative)
--- NOTE | 2025-01-28 09:36 | CT Scan Report ---
CT ANGIOGRAM OF THE CHEST CLINICAL HISTORY: Shortness of breath and cough. Breast cancer. COMPARISON STUDY: Chest CT December 03, 2024. Chest radiograph performed earlier today. TECHNIQUE: Following the IV administration of 112 cc of Optiray 320, CT angiogram of the chest was pe rformed from the upper abdomen to the thoracic inlet utilizing the pulmonary embolus protocol. Images are reviewed in the axial, sagittal, and coronal planes. 3-D MIPS images are created and assessed. I V contrast was administered without complication. A dose lowering technique was utilized adhering to the principles of ALARA. CT DOSE: 385.23 mGy.cm FINDINGS: No pulmonary emboli are identified. There is no thoracic aortic dissection. Size of the hea rt is normal. A moderate-sized pericardial effusion has developed since CT of December 03, 2024. A left i nternal jugular Wrddeu-p-Yvmu is in place. There is no pneumothorax. Large right and moderate left pl eural effusions have significantly increased in size since chest CT of December 03, 2024. Partially calci fied mediastinal, bilateral hilar and left axillary lymphadenopathy has mildly progressed since prior CT. Bilateral upper lobe predominant masslike densities have increased. Conglomerate left upper lobe lesion on image 156 measures 6.3 x 5.9 cm, previously 5.4 x 5.2 cm. Numerous smaller pulmonary metas tases are present. Numerous skeletal metastases within the bony thorax are noted. Several these are m ore conspicuous than on prior exam. Partially visualized right hepatic lobe lesion measures at least 6.2 x 5.5 cm. This has increased since prior CT of December 03, 2024. Smaller hepatic metastases are pres ent. IMPRESSION: 1. No pulmonary emboli identified. 2. Significant increase in size of large right and moderate left pleural effusions. 3. Interval development of a moderate-sized pericardial effusion. 4. Progression of pulmonary, pastor, osseous and hepatic metastatic disease, as detailed above. ACT 112: Negative or not required by law. Electronically signed by: Jason Arboleda M.D. 01/28/2025 9:34 AM
--- NOTE | 2025-01-28 10:18 | History & Physical Report ---
Date of Service January 28, 2025 Assessment & Plan (1) Malignant pleural effusion: Plan: Right greater than left. Right thoracentesis ordered for tomorrowJanuary 29. She probably will eventually need PleurX catheter placement for intermittent drainage of recurrent malignant effusion. (2) Acute respiratory failure with hypoxia: Plan: Supplemental oxygen per nasal cannula to maintain saturation greater than 90%. Wean off as tolerated (3) Breast cancer metastasized to lung: Plan: Metastatic involvement of lung, bone, brain, she has elected not to see any local oncologist. (4) Hypokalemia: Plan: Replacement therapy. Serial labs Plan Hopefully oxygen can be weaned off after thoracentesis and she can be discharged to her home sometime within the next 2 to 3 days. History of Present Illness Chief Complaint: dyspnea Primary Care Provider: Ann Mayes MD 64-year-old white female with metastatic breast cancer to bilateral lungs, bone, [employer]. She now has malignant bilateral pleural effusions, right greater than left along with dyspnea on exertion. Room air oxygen saturation at rest is 90% and with any exertion it drops further. She is now on supplemental oxygen per nasal cannula. She needs a right thoracentesis. She states she does not want to see any local oncology physicians. She is currently a full code and I discussed DNR status with her and her and they are considering it. She is admitted for further evaluation and treatment. Right thoracentesis has been ordered and hopefully can be done tomorrowJanuary 29 Allergies Allergy/AdvReac Type Severity Reaction Status Date / Time erythromycin base Allergy Severe Facial Verified 01/28/25 09:53 swelling Penicillins Allergy Severe Rash Verified 01/28/25 09:53 Home Medications Medication Instructions Recorded Confirmed Type prochlorperazine maleate 10 mg 10 mg PO Q6H PRN Nausea And 10/18/24 01/28/25 History tablet (Compazine) Vomiting famotidine 20 mg tablet 20 mg PO DAILY PRN gerd 11/01/24 01/28/25 History sennosides 8.6 mg tablet (Senokot) 8.6 mg PO BID PRN contipation 11/01/24 01/28/25 History cyanocobalamin (vitamin B-12) 500 500 mcg PO BID 11/06/24 01/28/25 History mcg tablet (Vitamin B-12) ondansetron 8 mg disintegrating 8 mg PO Q8H PRN Nausea And Vomiting 12/02/24 01/28/25 History tablet hydrocodone 5 mg-acetaminophen 325 1 tab PO Q6H PRN pain #60 tabs 01/10/25 01/28/25 Rx mg tablet Past Med/Surg History Problem List (Updated 01/28/25 @ 10:17 by Hakeem Puente MD) Hypokalemia Acute respiratory failure with hypoxia Malignant pleural effusion Breast cancer metastasized to lung (Acute) Hypoxia (Acute) VALERO (dyspnea on exertion) (Acute) Acute pericardial effusion (Acute) Pleural effusion on right (Acute) Pleural effusion on left (Acute) Cancer related pain Periorbital cellulitis of left eye Elevated troponin (Acute) Leukocytosis (Acute) Fall Bilateral leg weakness Periorbital edema of both eyes LAD (lymphadenopathy), mediastinal Facial mass (Acute) Double vision (Acute) Lung mass (Acute) Cerebral venous sinus thrombosis, acute (Acute) Proptosis Ptosis Osteopenia GERD (gastroesophageal reflux disease) mild hiatal hernia Lymphedema Foot drop BRCA gene mutation negative Medical History Metastasis to brain Metastatic neoplasm Peripheral neuropathy Malignant neoplasm of lower-outer quadrant of left breast of female, estrogen receptor negative FNA L axillary lump 06/24/18- s/p chemo; s/p left breast partial mastectomy and left SN excision 01/2019; s/p XRT 06/2019 Burning with urination started 11/12/24, denies fever or any other symptoms- patient instructed by [facility] nursing to call surgeon and PCP office to discuss further management Malignant neoplasm of breast metastatic to bone 09/2024 with metastasis to bone, brain, lung Limb alert care status left arm Nausea and vomiting Ptosis - steadily improved per 11/06/24 oncology records Proptosis Left eye, due to tumor Cerebral venous sinus thrombosis, acute Per discharge summary 09/25/24- after further review- feel that occlusion is not a thrombus but more likely tumor Lung mass Facial mass Lesion of right femur Had 5 XRT treatments, last was on 10/31/24 Nerve damage Residual balance issues Peripheral neuropathy Lymphadenopathy, mediastinal Double vision Tumor pushing on left eye Metastasis to brain Taking memantine as precautionary- currently tapering off was on daily dexamethasone (currently tapering off ) recently completed SBRT radiation to the brain Periorbital edema of both eyes L > R- states tumor is pushing her left eye outward Osteopenia GERD (gastroesophageal reflux disease) mild hiatal hernia Status post chemotherapy Neoadjuvant chemo 07/2018-12/2018 Surgical History H/O insertion of central venous access port (11/15/24) Insertion of Left Internal Jugular Access Port with Fluoroscopy(Left) - Lambert Samaniego, , FACS History of lumbar puncture (02/2019) H/O insertion of central venous access port (2018) right side/removed History of removal of Port-a-Cath (2019) 2019 Hx of lymph node excision (01/25/19) 13 lymph nodes, left arm pit Hx of tonsillectomy History of bunionectomy (1992) right foot, as well as bone spur removal Family History Mother No problems noted. Father , 83yo Colorectal cancer Brother No problems noted. Brother No problems noted. Denies family history of Ovarian cancer Prostate cancer Myocardial infarction Breast cancer Social History Smoking Status: Never smoker Tobacco Type: Cigarettes Age Started Using Tobacco: 17; Age Quit Using Tobacco: 27; packs per day: 0.5; Cigarettes Per Day: 1/2 PPD x 10 yrs;; Second Hand Exposure: No; Do You Dip or Chew Tobacco: No; Hx Alcohol Use: Yes Alcohol type: beer Alcohol Intake Frequency: Monthly or Less Hx Substance Use: No Preferred Language: Azeri Communication Ability: Effective Visual Impairment: No Limitations Hearing Ability: Normal Reference Archivist Required: No Beliefs That Will Affect Care: None marital status: Current Living Situation: Spouse Current Living Situation Comment: home with current occupational status: retired and disabled 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 [employer] How many Children do You have: 0 Feels Safe at Home: Yes Childhood Exposure to Second-Hand Smoke: Yes Diet: regular caffeine: Yes (2 cups coffee/day) during the past year weight has: remained stable Dental Care, Regularly: Yes Physical Activity Frequency: Daily Physical Activity Frequency Comment: Daily housework and cleaning Seatbelt Use: always Sunscreen Use: Yes Do you think of yourself as: straight/heterosexual Sexual Activity: has been sexually active, but not for at least 12 months Gender Identity: Female Assistive Devices: Glasses and Walker Review of Systems 2 Review of Systems: Constitutionalno fever or chills ENTno blurred vision, no double vision, no epistaxis, no sore throat Respiratorynonproductive cough. Dyspnea on exertion. No hemoptysis Cardiacno palpitations, no chest pain, no syncope Melissa nausea, vomiting, diarrhea, melena, hematochezia GUno urinary retention, no urinary incontinence, no dysuria, no hematuria Musculoskeletalno joint pain, no muscle tenderness Skinno bruising, no rashes, no pruritus Neurono isolated weakness, no paresthesia, no weakness Psychno depression, no anxiety Physical Exam 2 Physical Exam: General-alert and oriented x3, no fever, no chills HEENT-head atraumatic and normocephalic, pupils equal and reactive to light, extraocular muscles intact Neck-no lymphadenopathy or thyromegaly, trachea midline Chest-diminished breath sounds and dullness at both bases, more pronounced on the right. No audible wheezing. No inspiratory rales Cardiac-mildly tachycardic regular rhythm. Normal S1 and S2 Abdomen-normal bowel sounds, no hepatosplenomegaly Extremities-no cyanosis, clubbing, or edema Neuro-cranial nerves II through XII intact, motor and sensory function within normal limits, strength symmetrical, no focal deficits Psych-normal affect, normal mood Results & Data Results & Data Vital Signs (Past 12 Hours) Vital Signs Temp Pulse Pulse Resp BP BP Pulse Ox 01/28/25 09:29 87 L 01/28/25 09:00 133/95 01/28/25 09:00 133/95 01/28/25 08:54 122 H 18 90 01/28/25 08:51 116 H 29 H 01/28/25 08:00 117/82 01/28/25 07:52 123 H 01/28/25 07:48 123/100 01/28/25 07:48 123/100 01/28/25 07:42 120 H 20 93 01/28/25 07:42 120 H 20 117/82 93 01/28/25 07:42 01/28/25 07:42 01/28/25 07:36 36.5 C 128 H 22 108/74 96 O2 Del Method O2 Flow Rate 01/28/25 09:29 Room Air, Nasal Cannula 0 01/28/25 09:00 01/28/25 09:00 01/28/25 08:54 01/28/25 08:51 01/28/25 08:00 01/28/25 07:52 01/28/25 07:48 01/28/25 07:48 01/28/25 07:42 Room Air 01/28/25 07:42 Room Air 01/28/25 07:42 Room Air 01/28/25 07:42 Room Air 01/28/25 07:36 Room Air Laboratory Results 01/28/25 08:20 01/28/25 08:20 Code Status & VTE Plan Code Status Full code VTE Prophylaxis Plan VTE Prophylaxis will be ordered: Yes PG Care Time/CCT Total # of Minutes Spent Total Time Spent with Patient: Total time spent is greater than 50% in coordination of care (as documented) at patient's floor/unit and/or counseling patient: Coding Level of Care Code 42540 INT INP/OBS CARE 375MIN Diagnoses Malignant pleural effusion J91.0 Acute respiratory failure with hypoxia J96.01 Breast cancer metastasized to lung C50.919; C78.00 Hypokalemia E87.6
[2025-01-28] MEDS ORDERED: SENNA 8.6 MG TAB PO PRN (10:32)
[2025-01-28] MEDS ORDERED: ACETAMINOPHEN 325 MG TAB PO PRN (10:32)
--- NOTE | 2025-01-28 10:56 | Electrocardiogram Report ---
Test Reason : Blood Pressure : */* mmHG Vent. Rate : 124 BPM Atrial Rate : 124 BPM P-R Int : 144 ms QRS Dur : 70 ms QT Int : 330 ms P-R-T Axes : 40 58 32 degrees QTcB Int : 474 ms Sinus tachycardia Low voltage QRS Nonspecific T wave abnormality Abnormal ECG When compared with ECG of 02-Dec-2024 11:51, Aberrant conduction is no longer Present Nonspecific T wave abnormality now evident in Anterior leads Confirmed by Nishant Cerna ([id number]) on 01/28/2025 10:55:43 AM Referred By: REFERRED SELF Confirmed By: Nishant Cerna
[2025-01-28] MEDS: CYANOCOBALAMIN (B-12) 500 MCG TABLET PO SCH (19:43)
[2025-01-28] MEDS: HEPARIN SOD 5,000 UNIT/0.5 ML VIAL SQ SCH (21:29)
[2025-01-29 00:31] LABS: Appearance Urine Cloudy (Clear); Bacteria Urine Automated 1+ (None Seen); Cast Urine Automated 0-2 /lpf (0-2); Glucose Urine UA Negative (Negative); RBC Urine Automated 0-2 /hpf (0-2); WBC Urine Automated >50 /hpf (0-5)
[2025-01-29 09:06] LABS: Hematocrit (blood only) 32.9 % (37.0-47.0); Hemoglobin 10.3 g/dl (12.0-16.0); Immature Granulocytes # (auto) 0.04 K/uL (0.01-0.20); Immature Granulocytes % (auto) 0.7 %; Mean Corpuscular Hemoglobin 29.7 pg (25.0-34.0); Mean Corpuscular Volume 94.8 fL (80.0-100.0); Platelet Count 281 K/uL (130-400); RDW Standard Deviation 55.5 fL (36.4-46.3); Red Blood Count 3.47 M/uL (4.20-5.40); White Blood Count 5.61 K/ul (4.8-10.8)
[2025-01-29 09:22] LABS: Anion Gap 11.0 (3-11); Blood Urea Nitrogen 6.0 mg/dl (6-23); Calcium 8.7 mg/dl (8.6-10.3); Carbon Dioxide 27.0 mmol/L (21-32); Chloride 101.0 mmol/L (98-107); Creatinine Clr Calc Pharmacy 107.2 ml/min; Glucose 105.0 mg/dl (70-99(Fasting)); Potassium 3.3 mmol/L (3.5-5.1); Sodium 139.0 mmol/L (136-145)
[2025-01-29] MEDS: POTASSIUM CHLORIDE CRTAB 20 MEQ TABCR PO STA (10:07)
--- NOTE | 2025-01-29 12:02 | Hospitalist Progress Note ---
Date of Service January 29, 2025 Assessment & Plan (1) Malignant pleural effusion: (2) Acute respiratory failure with hypoxia: (3) Breast cancer metastasized to lung: (4) Hypokalemia: Plan This patient is a 64-year-old female with a history of metastatic breast cancer with mets to the lungs/bone/brain and meninges s/p chemotherapy and radiation, here with acute respiratory failure with high toxemia secondary to large right greater than left pleural effusions which are likely malignant. #Pleural effusion/acute respiratory failure with hypoxemia-most likely malignant pleural effusions. Requiring 2-3 LNC O2 and with tachypnea. - Plan for thoracentesis today-check pH, cell count, cultures, cytology, LDH, protein and serum and fluid - Continue supplemental O2 to keep pulse ox greater than 89% and wean off as able-May need to step walk test prior to discharge - If requires repeat thoracenteses in the future, could consider PleurX catheter placement - Check CXR in the morning #Metastatic breast cancer/anemia-first diagnosed in 2019 and now with mets to the brain, bones, and lungs. Has undergone multiple rounds of chemotherapy with progression of disease. No longer wants to follow with traditional oncology and is pursuing a holistic treatment approach in the near future. Hgb stable at 10, WBC count and platelets normal as she has not had any treatment in over 5 weeks. - Follow CBC - Patient does not desire follow-up with oncology as an outpatient and is not interested in palliative measures at this point #Hypokalemia-mildly low today - Replace with potassium chloride 20 mEq p.o. x 1 - Check BMP and magnesium in the morning #Abnormal urinalysis-UA consistent with UTI and although she is asymptomatic, she is immunocompromised and should be treated with antibiotics. Penicillin allergy is a rash in childhood and not a high risk allergy - Start cefepime - Follow urine culture DVT prophylaxis-heparin SQ Disposition-continued stay, possible discharge to home on 01/30 Admission and Anticipated Discharge Date Admission Date: January 28, 2025 Subjective Patient seen before thoracentesis and was continuing to have shortness of breath with minimal exertion. Telemetry with sinus tachycardia in the 1 teens to 130s. She remains on supplemental O2 I discussed her care with CARMELO SALDIVAR as well as with on-call pulmonology-decision made to do one-time thoracentesis rather than PleurX at this point as she has never had thoracentesis previously Patient and her are agreeable to the procedure Patient and her also inform me that they are starting the patient in a naturopathic/holistic treatment of her cancer from a provider in [place]. They no longer want to pursue any further traditional chemotherapy. Patient denies any dysuria or urinary frequency or urgency but is agreeable to treatment for UTI given that she is immunocompromised. Her allergy to penicillin was a rash in childhood Physical Exam Constitutional: well developed; not ill appearing (With alopecia) Respiratory: normal respiratory effort; no cough Auscultation: + diminished lung sounds (In right lower and middle lung cruz); no crackles, no rhonchi and no wheezes Cardiovascular: Rate/Rhythm: regular rhythm and + tachycardic Heart Sounds: no murmur Extremities: no edema Gastrointestinal (Abdomen): normal bowel sounds, soft, nontender, no hepatosplenomegaly Psychiatric: A+Ox3, euthymic affect Results & Data Results & Data Vital Signs (Past 12 Hours) Vital Signs Temp Pulse Pulse Resp BP Pulse Ox O2 Del Method 01/29/25 12:00 36.4 C L 135 H 16 131/90 98 Nasal Cannula 01/29/25 10:34 Nasal Cannula 01/29/25 08:45 36.5 C 118 H 16 101/71 96 Nasal Cannula 01/29/25 07:13 111 H 01/29/25 03:15 36.5 C 119 H 16 122/82 94 Nasal Cannula O2 Flow Rate 01/29/25 12:00 3 01/29/25 10:34 2 01/29/25 08:45 3 01/29/25 07:13 01/29/25 03:15 3 Laboratory Results CBC, BMP reviewed PG Care Time/CCT Total # of Minutes Spent Total Time Spent with Patient: Total time spent is greater than 50% in coordination of care (as documented) at patient's floor/unit and/or counseling patient: Coding Level of Care Code 42833 SUB INP/OBS CARE 3/50MIN Diagnoses Malignant pleural effusion J91.0 Acute respiratory failure with hypoxia J96.01 Breast cancer metastasized to lung C50.919; C78.00 Hypokalemia E87.6
--- NOTE | 2025-01-29 12:14 | XRay Report ---
XR chest 1V portable CLINICAL HISTORY: S/P Thoracentesis COMPARISON STUDY: 01/28/2025 FINDINGS: Stable chest port. Stable cardiomegaly with pulmonary vascular congestion. There are bilate ral pleural effusions, right greater than left, improved. No pneumothorax seen. Pulmonary masses are stable. IMPRESSION: No pneumothorax seen. ACT 112: Negative or not required by law. Electronically signed by: Lambert Recinos M.D. 01/29/2025 12:13 PM
[2025-01-29 12:39] LABS: Bilirubin,Total 0.7 mg/dl (0.2-1.0); Total Protein 5.5 gm/dl (6.0-8.3)
--- NOTE | 2025-01-29 13:17 | XRay Report ---
XR chest 1V not portable CLINICAL HISTORY: s/p rt thora COMPARISON STUDY: 01/29/2025 FINDINGS: Stable chest port. Stable bilateral lung masses. There are trace pleural effusions, improve d. No pneumothorax seen. IMPRESSION: No pneumothorax. ACT 112: Negative or not required by law. Electronically signed by: Lambert Recinos M.D. 01/29/2025 1:15 PM
[2025-01-29] MEDS: CEFEPIME 1000MG 1,000 MG/10 ML SYR IV SCH (14:03)
[2025-01-29 14:56] LABS: Appearance Pleural Fluid Hazy; Color Pleural Fluid Yellow; RBC Pleural Fluid Auto < 2000 /uL; Source Pleural Fluid Right Lung; WBC Pleural Fluid Auto 856 /uL
--- NOTE | 2025-01-29 15:15 | Ultrasound Report ---
ULTRASOUND-GUIDED RIGHT THORACENTESIS CLINICAL HISTORY: Large right pleural effusion PROCEDURE: Procedure and risks were explained. Informed consent was obtained. A final timeout was com pleted. The right posterior thorax was prepped and draped in sterile fashion. 1% lidocaine was utiliz ed for skin anesthesia. Utilizing ultrasound guidance, a 5 Qatari safety centesis catheter was advanced into the right pleura l effusion. Ultrasound images were obtained. A total of 1500 mL of gray pleural fluid was removed a nd sent to the lab. The catheter was removed and Band-Aid applied. The patient tolerated the procedur e well. A chest x-ray will be obtained post procedure. Vital signs will be monitored postprocedure. IMPRESSION: Ultrasound-guided right thoracentesis as above. Performed, dictated, and signed by Juan Antonio Nails PA-C; to be co-signed by Dr. Lambert Recinos. Electronically signed by: Lambert Recinos M.D. 01/29/2025 4:04 PM
[2025-01-29 15:16] LABS: Lymphocytes, Fluid 20 %; Mono,Macrophage,Mesothelial 10 %; Neutrophils, Fluid 70 %
[2025-01-29] MEDS: ONDANSETRON INJ 2 MG/ML 2 ML VIAL IV PRN (19:58)
[2025-01-29] MEDS: HYDROCODONE/ACETAMOPHEN 5/325MG TAB PO PRN (21:10)
[2025-01-30 03:02] VITALS: RESP 18
[2025-01-30 06:39] LABS: Hematocrit (blood only) 30.2 % (37.0-47.0); Hemoglobin 9.9 g/dl (12.0-16.0); Immature Granulocytes # (auto) 0.02 K/uL (0.01-0.20); Immature Granulocytes % (auto) 0.4 %; Mean Corpuscular Hemoglobin 31.0 pg (25.0-34.0); Mean Corpuscular Volume 94.7 fL (80.0-100.0); Platelet Count 307 K/uL (130-400); RDW Standard Deviation 54.8 fL (36.4-46.3); Red Blood Count 3.19 M/uL (4.20-5.40); White Blood Count 5.57 K/ul (4.8-10.8)
[2025-01-30 07:06] LABS: Anion Gap 7.0 (3-11); Blood Urea Nitrogen 8.0 mg/dl (6-23); Calcium 8.5 mg/dl (8.6-10.3); Carbon Dioxide 28.0 mmol/L (21-32); Chloride 102.0 mmol/L (98-107); Creatinine Clr Calc Pharmacy 97.2 ml/min; Glucose 88.0 mg/dl (70-99(Fasting)); Magnesium 2.0 mg/dl (1.7-2.4); Potassium 3.6 mmol/L (3.5-5.1); Sodium 137.0 mmol/L (136-145)
--- NOTE | 2025-01-30 07:41 | XRay Report ---
EXAM: XR chest 1V portable CLINICAL HISTORY: F/u pleural effusion TECHNIQUE: An X-ray image of the chest was obtained in frontal projection. COMPARISON: Prior X-ray dated 01/28/2025 for comparison. FINDINGS: A left chemoport is present with the tip at the cavoatrial junction. Pulmonary Parenchyma: There is an interval increase in the size of the right hilar irregular opacity. There is a mild interval decrease in bilateral pleural effusions. There are unchanged mild atelectatic changes adjacent to the above opacity. Unchanged air space opacities are present in the left upper zone. Heart and Mediastinum: The heart size and shape are normal. Bony Thorax: The bony thorax appears intact without fractures or deformities. Soft Tissues: The soft tissues overlying the chest wall are unremarkable. IMPRESSION: 1. A left chemoport is present with the tip at the cavoatrial junction. 2. There is an interval increase in the size of the right hilar irregular opacity, advised clinical correlation and if needed CT chest study 3. There is a mild interval decrease in bilateral pleural effusions. Electronically signed by Scot Pickard 01-30-2025 07:40 AM
[2025-01-30 07:49] VITALS: O2SAT 93
[2025-01-30 11:06] VITALS: BP 116/79; TEMP 98.1
--- NOTE | 2025-01-30 15:34 | Discharge Summary ---
Discharge Summary Date of Service January 30, 2025 Principal Dx & Hospital Course #1 = Principal Diagnosis (1) Malignant pleural effusion: (2) Acute respiratory failure with hypoxia: (3) Breast cancer metastasized to lung: (4) Acute pericardial effusion: Plan This patient is a 64-year-old female with a history of metastatic breast cancer with mets to the lungs/bone/brain and meninges s/p chemotherapy and radiation, here with acute respiratory failure with hypoxemia secondary to large right greater than left pleural effusions which are likely malignant. #Pleural effusion/acute respiratory failure with hypoxemia-most likely malignant pleural effusions although cytology pending. Requiring 2-3 LNC O2 and with tachypnea and tachycardia-now weaned off supplemental O2 after thoracentesis and passed a two-step walk test prior to discharge. Pleural fluid consistent with exudative effusion most likely malignant. Cytology pending, culture no growth to date at the time of discharge, AFB pending. -Stable for discharge to home, recommend CXR in 1-2 weeks with PCP - If requires repeat thoracenteses in the future, could arrange as an outpatient with IR. If requires recurrent thoracenteses, could consider PleurX catheter placement with pulmonology #Pericardial effusion-seen on CT scan of the chest and noted to be moderate but CT typically over reads the amount degree of effusion. ECG with low voltage but has had low voltage ECG in the past. -Recommend echo as an outpatient in 2 to 3 weeks to be ordered by PCP #Sinus tachycardia-with persistently elevated heart rate in the 1 teens to 130s at rest, likely secondary to widely metastatic cancer, pleural effusions, and hypovolemia as she has not been eating or drinking much with her progressing cancer. CT angiogram of the chest negative for PE - Would not treat with beta-blockers as this is a compensatory response - Ensured that electrolytes were repleted as she had hypokalemia - Follow as an outpatient #Metastatic breast cancer/anemia-first diagnosed in 2019 and now with mets to the brain, bones, and lungs. Has undergone multiple rounds of chemotherapy with progression of disease. No longer wants to follow with traditional oncology and is pursuing a holistic treatment approach in the near future. Hgb stable at 9- 10, WBC count and platelets normal as she has not had any treatment in over 5 weeks. - Follow CBC as an outpatient - Patient does not desire follow-up with oncology as an outpatient -Encouraged patient to look into hospice/palliative care as an outpatient in the future as she continues to decline without traditional treatment #Hypokalemia-mildly low and replaced, normalized. Likely secondary to poor p.o. intake #Abnormal urinalysis-UA consistent with UTI and although she is asymptomatic, she is immunocompromised and should be treated with antibiotics. Penicillin a llergy is a rash in childhood and not a high risk allergy Urine culture grew out mixed organisms. She was given 2 days worth of IV cefepime and will go home on cefdinir 300 mg p.o. twice daily x 5 more days DVT prophylaxis-heparin SQ Disposition- discharge to home on 01/30 Notes For Next Care Provider Check chest x-ray in 1-2 weeks Check echocardiogram in 2 to 3 weeks Would recommend ongoing encouragement for patient to enroll in hospice at home Medication Changes From Visit Added cefdinir 300 mg p.o. twice daily x 5 days Admission HPI Per Admitting Provider 64-year-old white female with metastatic breast cancer to bilateral lungs, bone, [employer]. She now has malignant bilateral pleural effusions, right greater than left along with dyspnea on exertion. Room air oxygen saturation at rest is 90% and with any exertion it drops further. She is now on supplemental oxygen per nasal cannula. She needs a right thoracentesis. She states she does not want to see any local oncology physicians. She is currently a full code and I discussed DNR status with her and her and they are considering it. She is admitted for further evaluation and treatment. Right thoracentesis has been ordered and hopefully can be done tomorrow, January 29 Discharge Exam Constitutional well developed; not ill appearing (With alopecia) Respiratory normal respiratory effort; no cough Auscultation: + diminished lung sounds (In right lower lung field); no crackles, no rhonchi and no wheezes Cardiovascular Rate/Rhythm: regular rhythm and + tachycardic Heart Sounds: no murmur Extremities: no edema Gastrointestinal (Abdomen) normal bowel sounds, soft, nontender, no hepatosplenomegaly Psychiatric A+Ox3, euthymic affect Discharge Plan Discharge Items Patient Disposition: Home - Self-Care Reason For Visit: DYSPNEA, MALIGNANT PLEURAL EFFUSTIONS Discharge Diagnosis: Pleural effusions Pericardial effusion Sinus tachycardia Hypokalemia Acute respiratory failure with hypoxemia-resolved Metastatic breast cancer Possible urinary tract infection Condition on Discharge: Fair Activity: As commented below Bathing: No limitations Exercise/Sports: As tolerated Non-emergency contact: Primary Care Provider Call non-emergency contact if: you have any medication questions and your symptoms worsen Follow-up/Referrals: Ann Mayes MD [Primary Care Provider] - 02/06/25 1:30 pm (Follow-up within 1- 2 weeks) Diet: Regular Addtl Attending Provider Instructions: You were admitted with low oxygen levels due to a buildup of fluid around your lungs which is most likely secondary to the cancer that has spread to the lungs. You also have a moderate amount of fluid around the heart for similar reasons. You had the fluid drained from around the right lung and had improvement in your oxygen levels. Please have your primary care doctor check a chest x-ray in 1-2 weeks to assess for reaccumulation of the fluid around the lungs. Please have your primary care doctor also order you an echocardiogram of the heart to reassess the fluid around the heart in 2 to 3 weeks. There is a high likelihood that this fluid around the lungs will return and you may need repeat drainage in the future. Your primary care doctor can arrange this through the intervention al radiology department, but if it becomes a recurrent issue, you would need to be referred to pulmonology to have a PleurX catheter placed that can be then be drained at home. As we discussed, if you desire to enter into palliative/hospice in the future to provide you improved comfort and quality of life at home while dealing with metastatic cancer, there are many hospice agencies in this area that can provide those services to you. You can ask your doctor to refer you to hospice or you can contact the hospice on your own accord if you wish. Please finish out 5 more days of the antibiotic called cefdinir for the urinary tract infection. It was my honor to take care of you during this difficult time. Please contact the hospital at [phone] and ask for me if you have any questions regarding your care. Lisa Mina MD Pending Studies at Discharge: Yes (Pleural fluid culture, cytology) Stand-Alone Forms: [facility] Medications and DC Order Prescriptions: New cefdinir 300 mg capsule 300 mg PO BID 5 Days Qty: 10 0RF Continued prochlorperazine maleate [Compazine] 10 mg tablet 10 mg PO Q6H PRN (Reason: Nausea And Vomiting) hydrocodone-acetaminophen 5-325 mg tablet 1 tab PO Q6H PRN (Reason: pain) Qty: 60 0RF sennosides [Senokot] 8.6 mg Tablet 8.6 mg PO BID PRN (Reason: contipation) famotidine 20 mg tablet 20 mg PO DAILY PRN (Reason: gerd) cyanocobalamin (vitamin B-12) [Vitamin B-12] 500 mcg Tablet 500 mcg PO BID ondansetron 8 mg tablet,disintegrating 8 mg PO Q8H PRN (Reason: Nausea And Vomiting) Discharge Orders: Discharge Order (Routine); Ordered 01/30/25 Ordered By: Lisa Mina Admission Data Admit Date/Time: 01/28/25 10:03 Attending Provider: Lisa Mina Admit Provider: Hakeem Puente Primary Care Provider: Ann Mayes Other Providers: Hakeem Puente Other Interventions: Discharge Summary Assessment (RN) Last Done: 01/30/25 15:36 Hospital Stay Data Consultations 01/28/25 09:08 ED Decision to Admit Stat Diagnostic Imagining Performed 01/28/25 07:56 CT angio chest PE protocol Stat 01/29/25 10:32 IR thoracentesis wo tube US Routine Pending Results Patient Have Any Pending Studies at Discharge: Yes (Pleural fluid culture, cytology) Discharge Instructions Given to Patient (Per Discharging Provider) You were admitted with low oxygen levels due to a buildup of fluid around your lungs which is most likely secondary to the cancer that has spread to the lungs. You also have a moderate amount of fluid around the heart for similar reasons. You had the fluid drained from around the right lung and had improvement in your oxygen levels. Please have your primary care doctor check a chest x-ray in 1-2 weeks to assess for reaccumulation of the fluid around the lungs. Please have your primary care doctor also order you an echocardiogram of the heart to reassess the fluid around the heart in 2 to 3 weeks. There is a high likelihood that this fluid around the lungs will return and you may need repeat drainage in the future. Your primary care doctor can arrange this through the interventional radiology department, but if it becomes a recurrent issue, you would need to be referred to pulmonology to have a PleurX catheter placed that can be then be drained at home. As we discussed, if you desire to enter into palliative/hospice in the future to provide you improved comfort and quality of life at home while dealing with metastatic cancer, there are many hospice agencies in this area that can provide those services to you. You can ask your doctor to refer you to hospice or you can contact the hospice on your own accord if you wish. Please finish out 5 more days of the antibiotic called cefdinir for the urinary tract infection. It was my honor to take care of you during this difficult time. Please contact the hospital at [phone] and ask for me if you have any questions regarding your care. Lisa Mina MD Total Time Total Time Spent Total Time Spent (In Minutes): 35 minutes Total Time Includes: Examination of the Patient, Discharge Planning and Medication Reconciliation Coding Level of Care Code 73455 INP/OBS DISCH >30 MIN Diagnoses Malignant pleural effusion J91.0 Acute respiratory failure with hypoxia J96.01 Breast cancer metastasized to lung C50.919; C78.00 Acute pericardial effusion I30.9
[2025-01-30 15:41] VITALS: PULSE 119
== END 2025-01-30 16:35 | disposition home or self-care (01) | DRG 180 ==
LOC: SUATTDRO → ED 07:32 → EDINP 10:03 → SUATTDRO 10:03 → 2W 14:31